=== PATIENT | female | born 1930 | race Hispanic/Latino ===

== ENCOUNTER 2018-09-16 16:24 | Inpatient (IN) | payer MEDICARE, BC ==
--- NOTE | 2018-09-16 16:52 | ED PDOC ---
Arrival/HPI - General Chief Complaint: Shortness Of Breath Time Seen by Provider: 09/16/18 16:38 Historian: Patient, Family (uma) - Critical Care Critical Care Minutes: 30 minutes - History of Present Illness Time/Duration: Other (five days) Symptom Onset: Gradual Symptom Course: Worsening Severity Level: Moderate Activities at Onset: Rest Associated Symptoms (Text): 09/16/18 16:48 History of coronary artery disease CABG and multiple stent placements. 6 days prior to arrival patient had an ablation and pacemaker placed at [facility]. Since then she has had increasing shortness of breath and dyspnea on exertion and generalized weakness. No chest pain. No fever or chills. No injury or trauma. PMD is Dr. Avila. Past Medical History - Cardiac Hx Cardiac Disorders: Yes Hx Circulatory Problems: Yes Hx Pacemaker: Yes - Pulmonary Hx Respiratory Disorders: No - Neurological Hx Neurological Disorder: No - HEENT Hx HEENT Disorder: No - Renal Hx Renal Disorder: No - Endocrine/Metabolic Hx Endocrine Disorders: No - Hematological/Oncological Hx Blood Disorders: No - Integumentary Hx Dermatological Disorder: No - Musculoskeletal/Rheumatological Hx Musculoskeletal Disorders: Yes Hx Arthritis: Yes Hx Falls: Yes Hx Unsteady Gait: Yes - Gastrointestinal Hx Gastrointestinal Disorders: No - Genitourinary/Gynecological Hx Genitourinary Disorders: No - Psychiatric Hx Psychophysiologic Disorder: Yes Hx Depression: Yes Hx Substance Use: No - Surgical History Hx Coronary Stent: Yes Other/Comment: Pacemaker - Anesthesia Hx Anesthesia Reactions: No Hx Malignant Hyperthermia: No Family/Social History - Physician Review Nursing Documentation Reviewed: Yes Family/Social History: Unknown Family HX Smoking Status: Never Smoked Hx Alcohol Use: Yes (COCKTAIL ON WEEKEND) Hx Substance Use: No Allergies/Home Meds Allergies/Adverse Reactions: Allergies iodine Allergy (Verified 09/16/18 16:43) ANAPHYLAXIS Sulfa (Sulfonamide Antibiotics) Allergy (Verified 09/16/18 16:43) ANAPHYLAXIS Home Medications: Home Meds Medication Instructions Recorded Confirmed Metoprolol Succinate XL [Toprol XL] 50 mg PO BID 12/01/11 09/16/18 Warfarin [Coumadin] 2 mg PO DAILY 12/01/11 09/16/18 Alprazolam [Xanax] 0.25 mg PO TID PRN 12/02/11 09/16/18 Rosuvastatin Calcium [Crestor] 40 mg PO DAILY 12/02/11 09/16/18 Aspirin [Ecotrin] 81 mg PO DAILY 09/16/18 09/16/18 Ferrous Sulfate [Feosol] 325 mg PO BID 09/16/18 09/16/18 Losartan [Cozaar] 50 mg PO DAILY 09/16/18 09/16/18 Nitroglycerin [Nitrostat] 0.4 mg SL Q5MIN PRN 09/16/18 09/16/18 Spironolactone [Aldactone] 25 mg PO DAILY 09/16/18 09/16/18 Warfarin [Coumadin] 3 mg PO DAILY 09/16/18 09/16/18 traZODone [Desyrel] 25 mg PO HS PRN 09/16/18 09/16/18 Review of Systems - Physician Review All systems were reviewed & negative as marked: Yes - Review of Systems Constitutional: Fatigue. absent: Fevers Respiratory: SOB. absent: Cough, Sputum, Wheezing Cardiovascular: absent: Chest Pain, Palpitations, Syncope Gastrointestinal: absent: Abdominal Pain, Nausea, Vomiting Neurological: absent: Headache, Dizziness, Focal Weakness Physical Exam Temperature: Afebrile Blood Pressure: Hypotensive Pulse: Regular Respiratory Rate: Normal Appearance: Positive for: Well-Appearing, Non-Toxic, Comfortable, Other (Chronically ill-appearing and pale) Pain Distress: None Mental Status: Positive for: Alert and Oriented X 3 - Systems Exam Head: Present: Atraumatic, Normocephalic Pupils: Present: PERRL Extroacular Muscles: Present: EOMI Conjunctiva: Present: Normal Mouth: Present: Moist Mucous Membranes Pharnyx: No: ERYTHEMA, EXUDATE, TONSILS ENLARGED Neck: Present: Normal Range of Motion Respiratory/Chest: Present: Clear to Auscultation, Good Air Exchange, Decreased Breath Sounds. No: Respiratory Distress, Accessory Muscle Use Cardiovascular: Present: Regular Rate and Rhythm, Normal S1, S2. No: Murmurs Abdomen: No: Tenderness, Distention, Peritoneal Signs, Rebound, Guarding Upper Extremity: Present: Normal Inspection. No: Cyanosis, Edema Lower Extremity: Present: Edema, Other (Left superficial anterior stiles ulcer with no signs of infection. Right medial posterior very small noninfected ulcer. Chronic venous stasis changes and trace edema.) Neurological: Present: GCS=15, CN II-XII Intact, Speech Normal, Motor Func G rossly Intact Skin: Present: Warm, Dry, Pale. No: Rashes Psychiatric: Present: Alert, Oriented x 3, Normal Insight, Normal Concentration Medical Decision Making ED Course and Treatment: 09/16/18 16:52 EKG is pacing rate 100 09/16/18 18:53 Discussed in detail with . He is aware of elevated BUN and creatinine elevated troponin elevated potassium and elevated BNP. Patient does have a living will and is a DNR. She is awake alert and not interested in any machines at all. She will be placed on a telemetry bed. He will place orders. - RAD Interpretation Radiology Orders: 09/16/18 16:47 CHEST PORTABLE [RAD] Stat X-ray chest one view shows cardiomegaly hardware pacemaker and right perihilar increased markings with no infiltrate or effusion. Union Steward: ED Physician Disposition/Present on Arrival - Present on Arrival Any Indicators Present on Arrival: No History of DVT/PE: No History of Uncontrolled Diabetes: No Urinary Catheter: No History of Decub. Ulcer: No History Surgical Site Infection Following: None - Disposition Have Diagnosis and Disposition been Completed?: Yes Diagnosis: Elevated troponin, Serum potassium elevated, Renal failure, Elevated brain natriuretic peptide (BNP) level, Anemia, Coagulopathy, Congestive heart failure, Dyspnea, Weakness, Lung mass Disposition: HOSPITALIZED Disposition Time: 18:57 Patient Plan: Admission, Telemetry Patient Problems: Current Active Problems Problem Status Onset Anemia Acute Coagulopathy Acute Congestive heart failure Acute Dyspnea Acute Elevated brain natriuretic peptide (BNP) level Acute Elevated troponin Acute Renal failure Acute Serum potassium elevated Acute Weakness Acute Condition: CRITICAL Discharge Instructions (ExitCare): Heart Failure (ED), Weakness (ED) Forms: [employer] ([place])
--- NOTE | 2018-09-16 17:38 | RAD ---
HISTORY: sob COMPARISON: None available TECHNIQUE: Chest, one view. FINDINGS: LUNGS: Right hilar prominence/mass. Please note that chest x-ray has limited sensitivity for the detection of pulmonary masses. PLEURA: No significant pleural effusion identified. No definite pneumothorax . CARDIOVASCULAR: Cardiomegaly. Atherosclerotic calcifications of the aorta. Median sternotomy wires. Left-sided pacemaker. OSSEOUS STRUCTURES: Osseous demineralization. Degenerative changes. High-riding humeral heads (left greater than right) may be seen in setting of chronic rotator cuff injury. Acromioclavicular arthropathy. VISUALIZED UPPER ABDOMEN: Unremarkable. OTHER FINDINGS: None. IMPRESSION: Right hilar prominence/mass. Recommend further evaluation with contrast enhanced CT of the chest. Cardiomegaly. Additional findings as above.
[2018-09-16 18:11] LABS: ALB/GLOB RATIO 1.1 (1.1-1.8); CALCIUM 9.8 mg/dL (8.4-10.5)
[2018-09-16 18:16] LABS: TROPONIN I 0.09 ng/mL
[2018-09-16] MEDS ORDERED: Insulin Regular 1 UNITS/0.01 ML ML IVP STA (18:25)
[2018-09-16] MEDS ORDERED: Dextrose 50% SYRINGE Inj (50 ml) IVP STA (18:26)
[2018-09-16 18:30] LABS: BASO # 0.01 K/mm3 (0.0-2.0); BASO % 0.1 % (0.0-3.0); EOS # 0.1 (0.0-0.7); EOS % 0.7 % (1.5-5.0); HEMOGLOBIN 9.9 g/dL (12.0-16.0); LYMPH # 0.9 (1.2-3.4); LYMPH % 12.8 % (22.0-35.0); MEAN CELL VOLUME 76.4 fl (80.0-105.0); MEAN CORPUSCULAR HEMOGLOBIN 21.7 pg (25.0-35.0); MEAN CORPUSCULAR HGB CONC 28.4 g/dl (31.0-37.0); MONO # 0.9 (0.1-0.6); MONO % 12.1 % (1.0-6.0); PLATELET COUNT 270 10^3/uL (120.0-450.0); RBC 4.57 10^6/uL (3.5-6.1); RED CELL DISTRIBUTION WIDTH 22.5 % (11.5-14.5); WHITE BLOOD COUNT 7.1 10^3/uL (4.5-11.0)
[2018-09-16 18:55] LABS: INR 3.93; PROTHROMBIN TIME 43.6 SECONDS (9.4-12.5)
[2018-09-16] MEDS: Dextrose 5%/0.9% NS 1,000 ML IV SCH (19:00)
[2018-09-16 20:43] VITALS: BMI 26.2
[2018-09-17 07:00] LABS: HEMOGLOBIN 8.7 g/dL (12.0-16.0); MEAN CORPUSCULAR HEMOGLOBIN 21.8 pg (25.0-35.0); MEAN PLATELET VOLUME 9.7 fl (7.0-11.0); RED CELL DISTRIBUTION WIDTH 21.8 % (11.5-14.5); WHITE BLOOD COUNT 6.8 10^3/uL (4.5-11.0)
[2018-09-17 08:01] LABS: ALBUMIN 3.2 g/dL (3.0-4.8); CALCIUM 8.9 mg/dL (8.4-10.5)
[2018-09-17] MEDS: Metoprolol Succinate 50 mg XL Tab PO SCH (09:19)
--- NOTE | 2018-09-17 09:39 | CARD ---
APPROVED REPORT Date of service: 09/16/2018 EKG Measurement Heart [id number] <Conclusion> Electronic ventricular pacemaker
--- NOTE | 2018-09-17 13:35 | US ---
Date of service: 09/17/2018 PROCEDURE: Ultrasound of the Kidneys HISTORY: ARF COMPARISON: None available. TECHNIQUE: Sonogram of the kidneys. FINDINGS: RIGHT KIDNEY: Measures: 9.6 x 3.93 x 4.38 cm. Normal in size, contour and echogenicity. No stone, solid mass lesion or hydronephrosis visualized. Simple cyst measuring 1.73 x 0.87 x 1.69 cm LEFT KIDNEY: Measures: 9.88 x 4.48 x 4.01 cm. Normal in size, contour and echogenicity. No stone, solid mass lesion or hydronephrosis visualized. 1.58 cm cyst upper pole OTHER FINDINGS: None. IMPRESSION: Unremarkable renal sonogram.
--- NOTE | 2018-09-17 13:51 | CP.PCM.HP ---
<Marc Haley - Last Filed: 09/17/18 14:05> History of Present Illness - History of Present Illness History of Present Illness: H&P for Dr Cline: 87-year-old female with past medical history of coronary artery disease with CABG and stents, A. fib on Coumadin, hypertension, osteoarthritis, anxiety, recent pacemaker and ablation placement for her atrial fibrillation 6 days ago, now presents with increasing shortness of breath with exertion and generalized weakness. As per [place] patient's niece, the patient has been increasingly short of breath when walking just 20 feet. Patient has also been more confused mixing up her words and her numbers at times. She also had an episode of slurring speech however it resolved quickly. As per the patient's niece the patient just has not been herself lately. The patient denies any other complaints. 12 point ROS performed and negative other than as stated above PMH: As above PSH: CABG 30 years ago, heart valve replacementlikely prosthetic (reported Pig valve), Pacemaker and ablation 1 week ago Medications: Refer to MAR Allergies: Iodine and sulfa SH: Denies any smoking, drinking, or drugs FH: Sister with kidney disease long time ago Present on Admission - Present on Admission Any Indicators Present on Admission: No Review of Systems - Review of Systems All systems: reviewed and no additional remarkable complaints except Past Patient History - Past Social History Smoking Status: Never Smoked - CARDIAC Hx Cardiac Disorders: Yes Hx Circulatory Problems: Yes Hx Pacemaker: Yes - PULMONARY Hx Respiratory Disorders: No - NEUROLOGICAL Hx Neurological Disorder: No - HEENT Hx HEENT Problems: No - RENAL Hx Chronic Kidney Disease: No - ENDOCRINE/METABOLIC Hx Endocrine Disorders: No - HEMATOLOGICAL/ONCOLOGICAL Hx Blood Disorders: No - INTEGUMENTARY Hx Dermatological Problems: No - MUSCULOSKELETAL/RHEUMATOLOGICAL Hx Falls: No - GASTROINTESTINAL Hx Gastrointestinal Disorders: No - GENITOURINARY/GYNECOLOGICAL Hx Genitourinary Disorders: No - PSYCHIATRIC Hx Psychophysiologic Disorder: Yes Hx Depression: Yes - SURGICAL HISTORY Hx Coronary Stent: Yes Other/Comment: Pacemaker - ANESTHESIA Hx Anesthesia Reactions: No Hx Malignant Hyperthermia: No Meds Allergies/Adverse Reactions: Allergies Allergy/AdvReac Type Severity Reaction Status Date / Time iodine Allergy ANAPHYLAXIS Verified 09/16/18 16:43 Sulfa (Sulfonamide Allergy ANAPHYLAXIS Verified 09/16/18 16:43 Antibiotics) Physical Exam - Constitutional Appears: No Acute Distress - Head Exam Head Exam: ATRAUMATIC, NORMOCEPHALIC - Eye Exam Eye Exam: EOMI, PERRL - ENT Exam ENT Exam: Mucous Membranes Moist - Respiratory Exam Respiratory Exam: Clear to Auscultation Bilateral. absent: Rales, Rhonchi, Wheezes - Cardiovascular Exam Cardiovascular Exam: REGULAR RHYTHM, +S1, +S2 - GI/Abdominal Exam GI & Abdominal Exam: Normal Bowel Sounds, Soft. absent: Tenderness - Extremities Exam Extremities exam: Negative for: calf tenderness, pedal edema - Neurological Exam Neurological exam: Alert, CN II-XII Intact, Oriented x3 - Psychiatric Exam Psychiatric exam: Normal Mood - Skin Skin Exam: Dry, Intact, Warm Results - Vital Signs Recent Vital Signs: Last Vital Signs Temp 97.7 F 09/17/18 08:00 Pulse 81 09/17/18 10:00 Resp 18 09/17/18 08:00 BP 91/70 L 09/17/18 09:19 Pulse Ox 99 09/17/18 08:00 - Labs Result Diagrams: 09/17/18 06:15 09/17/18 06:15 Labs: Laboratory Results - last 24 hr 09/16/18 09/16/18 09/16/18 17:26 17:26 17:47 WBC 7.1 RBC 4.57 Hgb 9.9 L Hct 34.9 L MCV 76.4 L MCH 21.7 L MCHC 28.4 L RDW 22.5 H Plt Count 270 MPV Neut % (Auto) 74.3 H Lymph % (Auto) 12.8 L [place] % (Auto) 12.1 H Eos % (Auto) 0.7 L Baso % (Auto) 0.1 Lymph # (Auto) 0.9 L [place] # (Auto) 0.9 H Eos # (Auto) 0.1 Baso # (Auto) 0.01 Absolute Neuts (auto) 5.30 PT 43.6 H INR 3.93 H* APTT 42.0 H D-Dimer, Quantitative 3371 H Sodium 135 Potassium 6.4 H* D Chloride 99 Carbon Dioxide 23 Anion Gap 20 BUN 79 H Creatinine 2.4 H Est GFR ( Amer) 23 Est GFR (Non-Af Amer) 19 POC Glucose (mg/dL) Random Glucose 100 Calcium 9.8 Phosphorus Magnesium 2.8 H Total Bilirubin 1.4 H AST 66 H D ALT 38 Alkaline Phosphatase 106 Lactate Dehydrogenase 788 H Total Creatine Kinase 46 Troponin I 0.09 NT-Pro-B Natriuret Pep 41166 H Total Protein 7.6 Albumin 4.0 Globulin 3.6 Albumin/Globulin Ratio 1.1 09/16/18 09/17/18 09/17/18 19:49 01:48 06:15 WBC 6.8 RBC 4.00 Hgb 8.7 L Hct 30.0 L MCV 75.0 L MCH 21.8 L MCHC 29.0 L RDW 21.8 H Plt Count 145 MPV 9.7 Neut % (Auto) Lymph % (Auto) [place] % (Auto) Eos % (Auto) Baso % (Auto) Lymph # (Auto) [place] # (Auto) Eos # (Auto) Baso # (Auto) Absolute Neuts (auto) PT INR APTT D-Dimer, Quantitative Sodium Potassium Chloride Carbon Dioxide Anion Gap BUN Creatinine Est GFR ( Amer) Est GFR (Non-Af Amer) POC Glucose (mg/dL) 124 H 172 H Random Glucose Calcium Phosphorus Magnesium Total Bilirubin AST ALT Alkaline Phosphatase Lactate Dehydrogenase Total Creatine Kinase Troponin I NT-Pro-B Natriuret Pep Total Protein Albumin Globulin Albumin/Globulin Ratio 09/17/18 06:15 WBC RBC Hgb Hct MCV MCH MCHC RDW Plt Count MPV Neut % (Auto) Lymph % (Auto) [place] % (Auto) Eos % (Auto) Baso % (Auto) Lymph # (Auto) [place] # (Auto) Eos # (Auto) Baso # (Auto) Absolute Neuts (auto) PT INR APTT D-Dimer, Quantitative Sodium 134 Potassium 5.1 H Chloride 101 Carbon Dioxide 25 Anion Gap 13 BUN 79 H Creatinine 2.3 H Est GFR ( Amer) 24 Est GFR (Non-Af Amer) 20 POC Glucose (mg/dL) Random Glucose 100 Calcium 8.9 Phosphorus 5.0 H Magnesium 2.7 H Total Bilirubin 1.0 AST 62 H ALT 36 Alkaline Phosphatase 87 Lactate Dehydrogenase Total Creatine Kinase Troponin I NT-Pro-B Natriuret Pep Total Protein 6.4 Albumin 3.2 Globulin 3.3 Albumin/Globulin Ratio 1.0 L Assessment & Plan - Assessment and Plan (Free Text) Assessment: 1. Shortness of breath 2. Hyperkalemia, k 5.9 3. Acute kidney injury 4. Atrial fibrillation on Coumadin and recent ablation with pacemaker placement 5. Coronary artery disease with CABG and stents 6. 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 Osteoarthritis 8. Anxiety 9. Hypertension 10. Supra therapeutic INR 3.93 CT scan of the head was ordered in order to rule out any CVA, will follow-up results. Chest x-ray showed right hilar prominent mass recommend CT of the chest, cardiomegaly. EKG showed heart rate of 100 electronic ventricular pacemaker. For her shortness of breath and recent pacemaker placement cardiology consulted, follow-up echo ordered, awaiting further recommendations. Started on Duonebs. For her hyperkalemia has been treated with insulin 10 units with D50, Kayexalate 15, and D5 NS @75. For her LOUISA workup has been sent out we will follow-up results, follow-up renal ultrasound, will hold patient's home losartan and Aldactone, Cont with fluids. For her coronary artery disease continue aspirin and beta-blockers. For her hypertension we will hold patient's Aldactone and losartan in the setting of an LOUISA, resume BB. For her anxiety continue with Xanax as needed. Patient has supratherapeutic INR, hold Coumadin, follow up daily INRs. Continue with heart healthy diet. Physical therapy evaluation. Continue to monitor for any changes. Case and plan was reviewed and discussed with Dr. Cline. <Jin Cline - Last Filed: 09/17/18 17:01> Results - Vital Signs Recent Vital Signs: Last Vital Signs Temp 97.6 F 09/17/18 12:00 Pulse 81 09/17/18 12:00 Resp 20 09/17/18 12:00 BP 101/70 09/17/18 12:00 Pulse Ox 100 09/17/18 12:00 - Labs Result Diagrams: 09/17/18 06:15 09/17/18 06:15 Labs: Laboratory Results - last 24 hr 09/16/18 09/16/18 09/16/18 17:26 17:26 17:47 WBC 7.1 RBC 4.57 Hgb 9.9 L Hct 34.9 L MCV 76.4 L MCH 21.7 L MCHC 28.4 L RDW 22.5 H Plt Count 270 MPV Neut % (Auto) 74.3 H Lymph % (Auto) 12.8 L [place] % (Auto) 12.1 H Eos % (Auto) 0.7 L Baso % (Auto) 0.1 Lymph # (Auto) 0.9 L Churchill # (Auto) 0.9 H Eos # (Auto) 0.1 Baso # (Auto) 0.01 Absolute Neuts (auto) 5.30 PT 43.6 H INR 3.93 H* APTT 42.0 H D-Dimer, Quantitative 3371 H Sodium 135 Potassium 6.4 H* D Chloride 99 Carbon Dioxide 23 Anion Gap 20 BUN 79 H Creatinine 2.4 H Est GFR ( Amer) 23 Est GFR (Non-Af Amer) 19 POC Glucose (mg/dL) Random Glucose 100 Calcium 9.8 Phosphorus Magnesium 2.8 H Total Bilirubin 1.4 H AST 66 H D ALT 38 Alkaline Phosphatase 106 Lactate Dehydrogenase 788 H Total Creatine Kinase 46 Troponin I 0.09 NT-Pro-B Natriuret Pep 84926 H Total Protein 7.6 Albumin 4.0 Globulin 3.6 Albumin/Globulin Ratio 1.1 Urine Color Urine Appearance Urine pH Ur Specific [place] Urine Protein Urine Glucose (UA) Urine Ketones Urine Blood Urine Nitrate Urine Bilirubin Urine Urobilinogen Ur Leukocyte Esterase Urine RBC Urine WBC Ur Epithelial Cells Urine Bacteria Ur Random Creatinine U Random Total Protein Ur Random Sodium 09/16/18 09/17/18 09/17/18 19:49 01:48 06:15 WBC 6.8 RBC 4.00 Hgb 8.7 L Hct 30.0 L MCV 75.0 L MCH 21.8 L MCHC 29.0 L RDW 21.8 H Plt Count 145 MPV 9.7 Neut % (Auto) Lymph % (Auto) [place] % (Auto) Eos % (Auto) Baso % (Auto) Lymph # (Auto) [place] # (Auto) Eos # (Auto) Baso # (Auto) Absolute Neuts (auto) PT INR APTT D-Dimer, Quantitative Sodium Potassium Chloride Carbon Dioxide Anion Gap BUN Creatinine Est GFR ( Amer) Est GFR (Non-Af Amer) POC Glucose (mg/dL) 124 H 172 H Random Glucose Calcium Phosphorus Magnesium Total Bilirubin AST ALT Alkaline Phosphatase Lactate Dehydrogenase Total Creatine Kinase Troponin I NT-Pro-B Natriuret Pep Total Protein Albumin Globulin Albumin/Globulin Ratio Urine Color Urine Appearance Urine pH Ur Specific [place] Urine Protein Urine Glucose (UA) Urine Ketones Urine Blood Urine Nitrate Urine Bilirubin Urine Urobilinogen Ur Leukocyte Esterase Urine RBC Urine WBC Ur Epithelial Cells Urine Bacteria Ur Random Creatinine U Random Total Protein Ur Random Sodium 09/17/18 09/17/18 09/17/18 06:15 14:30 14:30 WBC RBC Hgb Hct MCV MCH MCHC RDW Plt Count MPV Neut % (Auto) Lymph % (Auto) [place] % (Auto) Eos % (Auto) Baso % (Auto) Lymph # (Auto) [place] # (Auto) Eos # (Auto) Baso # (Auto) Absolute Neuts (auto) PT INR APTT D-Dimer, Quantitative Sodium 134 Potassium 5.1 H Chloride 101 Carbon Dioxide 25 Anion Gap 13 BUN 79 H Creatinine 2.3 H Est GFR ( Amer) 24 Est GFR (Non-Af Amer) 20 POC Glucose (mg/dL) Random Glucose 100 Calcium 8.9 Phosphorus 5.0 H Magnesium 2.7 H Total Bilirubin 1.0 AST 62 H ALT 36 Alkaline Phosphatase 87 Lactate Dehydrogenase Total Creatine Kinase Troponin I NT-Pro-B Natriuret Pep Total Protein 6.4 Albumin 3.2 Globulin 3.3 Albumin/Globulin Ratio 1.0 L Urine Color Yellow Urine Appearance Clear Urine pH 6.0 Ur Specific [place] 1.020 Urine Protein Negative Urine Glucose (UA) Negative Urine Ketones Negative Urine Blood Negative Urine Nitrate Negative Urine Bilirubin Negative Urine Urobilinogen 0.2 Ur Leukocyte Esterase Trace H Urine RBC 0 - 2 Urine WBC 5 - 10 H Ur Epithelial Cells 6 - 8 H Urine Bacteria Small Ur Random Creatinine 62 U Random Total Protein 13 Ur Random Sodium 33 Assessment & Plan - Assessment and Plan (Free Text) Assessment: Pt seen and examined by me. I have reviewed the note of the medical office secretary and I agree with it. I have discussed the assessment and plan with the resident. I have reviewed the medications and the last labs.
[2018-09-17] MEDS ORDERED: Albuterol-Ipratrop 3 mg / 0.5 (3 ml) UD IH PRN (14:09)
[2018-09-17] MEDS: Dextrose 5%/0.9% NS 1,000 ML IV SCH (14:31)
[2018-09-17 14:39] LABS: URINE BILIRUBIN NEGATIVE (NEGATIVE); URINE BLOOD NEGATIVE (NEGATIVE); URINE GLUCOSE (UA) NEGATIVE (NEGATIVE); URINE LEUKOCYTE ESTERASE TRACE Leu/uL (NEGATIVE); URINE PROTEIN NEGATIVE mg/dL (<30 mg/dL); URINE UROBILINOGEN 0.2 E.U./dL (<1 E.U./dL)
[2018-09-17 14:41] LABS: URINE APPEARANCE CLEAR (CLEAR); URINE COLOR YELLOW (YELLOW)
[2018-09-17 14:58] LABS: CREATININE,RANDOM URINE 62 mg/dL; TOTAL PROTEIN,RANDOM URINE 13 mg/L
--- NOTE | 2018-09-17 15:27 | CT ---
Date of service: 09/17/2018 PROCEDURE: CT HEAD WITHOUT CONTRAST. HISTORY: r/o cva COMPARISON: 08/31/2016 TECHNIQUE: Axial computed tomography images were obtained through the head/brain without intravenous contrast. Radiation dose: Total exam DLP = 885.69 mGy-cm. This CT exam was performed using one or more of the following dose reduction techniques: Automated exposure control, adjustment of the mA and/or kV according to patient size, and/or use of iterative reconstruction technique. FINDINGS: HEMORRHAGE: No intracranial hemorrhage. BRAIN: No mass effect or edema. Mild diffuse age-appropriate atrophy. 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 Old left thalamic lacunar infarct. No evidence of acute infarct. Moderate patchy periventricular and deep/subcortical white matter lucency consistent with microvascular ischemic change. VENTRICLES: Unremarkable. No hydrocephalus. CALVARIUM: Unremarkable. PARANASAL SINUSES: Unremarkable as visualized. No significant inflammatory changes. MASTOID AIR CELLS: Unremarkable as visualized. No inflammatory changes. OTHER FINDINGS: None. IMPRESSION: No which cranial mass, hemorrhage or evidence of acute infarct. Age related atrophy and chronic white matter ischemic change.
[2018-09-17 15:28] LABS: URINE BACTERIA SMALL /hpf; URINE RBC 0 - 2 /hpf (0-2)
[2018-09-17] MEDS: Albuterol-Ipratrop 3 mg / 0.5 (3 ml) UD IH SCH (20:33)
--- NOTE | 2018-09-17 20:43 | PN ---
DATE: 09/17/2018 SUBJECTIVE: The patient was seen and examined. I do agree with the note of the senior medical technologist. I did review the assessment and plan as well as going over the plan of care. The patient is being admitted to the hospital. She had initially come in because of shortness of breath. The patient was getting DuoNeb treatments and had improvement. She has acute kidney injury. Her previous creatinine in the computer was normal. She also has hyperkalemia. She was given Kayexalate and was placed on D5 normal saline to help with the hyperkalemia and the acute kidney injury. At this point, I am not sure of the cause of the acute kidney injury. The differential diagnosis is lung , but does include hypovolemia, possible medication induced. The patient had a recent pacemaker placement and may have occurred postop as a complication. The patient currently feels well. She has been on Aldactone and losartan, so I will hold these medications as this may be the cause of the hyperkalemia. She has a prosthetic heart valve. She has an elevated INR. The Coumadin will be on hold. The patient is on Coumadin for atrial fibrillation. The patient had a renal ultrasound that was ordered. It shows no significant abnormalities. The left kidney is 9.8 cm and the right 9.6 cm. There is a simple cyst that is 1.7 x 0.8 x 1.7 cm. The patient had a CT of the head that shows no acute abnormalities. There were age-related changes. EKG showed a ventricular paced rhythm. A repeat creatinine that was done shows that the potassium has improved, but the creatinine has remained stable. PLAN: I have asked Dr. Joy to evaluate the patient as well. She is going to continue with her iron. She is receiving Lipitor for dyslipidemia. She is on Xanax as needed for anxiety. She is going to continue her metoprolol. Jin Cline MD
--- NOTE | 2018-09-17 22:16 | CON ---
DATE: 09/17/2018 REQUESTING PHYSICIAN: Dr. Cline REASON FOR CONSULTATION: Dyspnea. HISTORY: This is an 87-year-old woman with a complex past medical history, who underwent recent ablation for atrial fibrillation and placement of a biventricular pacemaker, who developed worsening exertional dyspnea following the procedure. This was apparently performed just several days ago at [facility]. PAST HISTORY: Notable for prior coronary bypass surgery many years ago. She also had a PCI with plain balloon angioplasty in the as well as a stent placement several years ago. She underwent aortic valve replacement as well several years ago. All these procedures were reportedly performed at [facility]. She states that she has had significant exertional dyspnea since her procedure was performed. Her past medical history is notable for the problems mentioned above. CURRENT MEDICATIONS: Include trazodone, DuoNeb inhaler, Ecotrin, ferrous sulfate, Lipitor 80 mg daily, Toprol XL 50 mg daily, and Xanax p.r.n. ALLERGIES: SHE HAS HAD A REACTION TO IODINE IN THE PAST WELL SULFAS. SOCIAL HISTORY: She does not smoke or drink. FAMILY HISTORY: Both parents are from age-related illness. REVIEW OF SYSTEMS: Ten-point review of systems otherwise unremarkable. PHYSICAL EXAMINATION: GENERAL: She is an elderly woman who appears comfortable at rest. VITAL SIGNS: Blood pressure is 90/70 with pulse of 18, respirations are 16. She is afebrile. HEENT: Normocephalic, atraumatic. NECK: Supple. No JVD noted. CHEST: Few scattered rhonchi heard. HEART: PMI displaced laterally with soft tones noted. ABDOMEN: Soft, nontender, normoactive bowel sounds. EXTREMITIES: No edema. SKIN: Warm and dry. PSYCHIATRIC: Normal mood and affect. NEUROLOGIC: Alert and oriented x3. No gross motor or sensory deficits noted. DIAGNOSTIC DATA: Potassium 5.1, BUN and creatinine of 79 and 2.3. White count is 6.8, hemoglobin and hematocrit of 8.7 and 30 with an MCV of 75, platelet count 145,000. Chest x-ray reveals an enlarged cardiac silhouette with clear lung garcia. A dual-chamber biventricular pacing system is noted in place. Electrocardiogram reveals ventricular paced rhythm. IMPRESSION: 1. Post-procedural dyspnea, etiology uncertain. 2. Anemia, uncertain if this is chronic. She does have evidence of microcytic hyperchromic indices. It is unclear if she had any significant blood loss with her device implant. This would be somewhat unusual. 3. Renal insufficiency, unclear if this is new or old. 4. Known coronary artery disease, status post prior bypass surgery and multivessel percutaneous coronary intervention. 5. History of aortic valve disease, status post aortic valve replacement, no evidence of dysfunction on physical examination. 6. Rest of problems as noted. RECOMMENDATIONS: 1. Attempts were made to obtain further information from [facility] regarding her prior admission. Old records will be reviewed if possible. Renal evaluation has been initiated. 2. Anemia evaluation is advised as well. She does not appear volume overloaded at the present time and I would not add diuretic therapy to her regimen. An echocardiogram will be obtained to assess her valve function, LV function, and exclude any component of pericardial effusion given her recent device implant. I will be happy to follow along and make further recommendations based upon her results of the above workup. Thank you for this consultation. Yaw Joy MD
[2018-09-18] MEDS: Albuterol-Ipratrop 3 mg / 0.5 (3 ml) UD IH SCH ×3 (01:57→13:54)
[2018-09-18 07:16] LABS: INR 3.22; PROTHROMBIN TIME 36.4 SECONDS (9.4-12.5)
[2018-09-18 07:25] LABS: BASO # 0.01 K/mm3 (0.0-2.0); BASO % 0.1 % (0.0-3.0); EOS # 0.1 (0.0-0.7); EOS % 0.7 % (1.5-5.0); HEMOGLOBIN 8.7 g/dL (12.0-16.0); LYMPH # 0.9 (1.2-3.4); LYMPH % 12.4 % (22.0-35.0); MEAN CELL VOLUME 75.5 fl (80.0-105.0); MEAN CORPUSCULAR HEMOGLOBIN 21.5 pg (25.0-35.0); MEAN CORPUSCULAR HGB CONC 28.5 g/dl (31.0-37.0); MEAN PLATELET VOLUME 9.7 fl (7.0-11.0); MONO # 1.2 (0.1-0.6); RBC 4.04 10^6/uL (3.5-6.1); RED CELL DISTRIBUTION WIDTH 21.6 % (11.5-14.5); WHITE BLOOD COUNT 7.3 10^3/uL (4.5-11.0)
[2018-09-18 07:38] LABS: ALB/GLOB RATIO 0.9 (1.1-1.8); ALBUMIN 3.1 g/dL (3.0-4.8); CALCIUM 8.7 mg/dL (8.4-10.5)
[2018-09-18 08:15] LABS: URINE BILIRUBIN NEGATIVE (NEGATIVE); URINE BLOOD NEGATIVE (NEGATIVE); URINE GLUCOSE (UA) NEGATIVE (NEGATIVE); URINE LEUKOCYTE ESTERASE MODERATE Leu/uL (NEGATIVE); URINE PROTEIN NEGATIVE mg/dL (<30 mg/dL); URINE UROBILINOGEN 0.2 E.U./dL (<1 E.U./dL)
[2018-09-18 08:17] LABS: URINE APPEARANCE CLEAR (CLEAR); URINE COLOR YELLOW (YELLOW)
[2018-09-18 08:27] LABS: IRON 16 ug/dL (45-180)
[2018-09-18 08:37] LABS: % IRON SATURATION 4 % (20-55); TOTAL IRON BINDING CAPACITY 398 ug/dL (265-497)
[2018-09-18 08:44] LABS: URINE BACTERIA MANY /hpf; URINE WBC 20 - 25 /hpf (0-6)
[2018-09-18 08:45] LABS: URINE AMORPHOUS SEDIMENT FEW /hpf
[2018-09-18] MEDS: Metoprolol Succinate 50 mg XL Tab PO SCH (09:33)
--- NOTE | 2018-09-18 11:08 | CP.PCM.PN ---
<Marc Haley - Last Filed: 09/18/18 11:04> Subjective - Date & Time of Evaluation Date of Evaluation: 09/18/18 Time of Evaluation: 07:50 - Subjective Subjective: Medicine progress note: Patient seen and examined at bedside. No acute events overnight. Patient states that her shortness of breath has improved. Denies any chest pain. No other complaints at this time. 12 point ROS performed and negative other than stated above Objective - Vital Signs/Intake and Output Vital Signs (last 24 hours): Temp Pulse Resp BP Pulse Ox 98 F 97 H 20 105/70 99 09/18/18 06:00 09/18/18 09:33 09/18/18 06:00 09/18/18 09:33 09/18/18 06:00 Intake and Output: 09/18/18 09/18/18 06:59 18:59 Intake Total 596 Output Total 480 Balance 116 - Medications Medications: Current Medications Albuterol/Ipratropium (Duoneb 3 Mg/0.5 Mg (3 Ml) Ud) 3 ml IH [id number] [facility] Last Admin: 09/18/18 09:06 Dose: 3 ml Albuterol/Ipratropium (Duoneb 3 Mg/0.5 Mg (3 Ml) Ud) 3 ml IH Q2H PRN PRN Reason: Shortness of Breath Alprazolam (Xanax) 0.25 mg PO TID PRN; Protocol PRN Reason: Anxiety Stop: 09/24/18 13:45 Aspirin (Ecotrin) 81 mg PO DAILY [facility] Last Admin: 09/18/18 09:28 Dose: 81 mg Atorvastatin Calcium (Lipitor) 80 mg PO DIN [facility] Last Admin: 09/17/18 18:03 Dose: 80 mg Benzocaine/Menthol (Cepacol Sore Throat) 1 pedro MT Q2H PRN PRN Reason: Sore Throat Ferrous Sulfate (Feosol) 324 mg PO BID [facility] Last Admin: 09/18/18 09:28 Dose: 324 mg Iron Sucrose 200 mg/ Sodium (Chloride) 110 mls @ 110 mls/hr IVPB DAILY [facility] Stop: 09/21/18 11:01 Metoprolol Succinate (Toprol Xl) 50 mg PO DAILY [facility] Last Admin: 09/18/18 09:33 Dose: 50 mg Nitroglycerin (Nitrostat Sl Tab) 0.4 mg SL Q5MIN PRN PRN Reason: chest pain Pantoprazole Sodium (Protonix Ec Tab) 40 mg PO 0600 [facility] Trazodone HCl (Desyrel) 25 mg PO HS PRN PRN Reason: Insomnia Last Admin: 09/17/18 22:21 Dose: 25 mg Warfarin Sodium (Coumadin) 2 mg PO DAILY [facility]; Protocol Last Admin: 09/17/18 14:31 Dose: Not Given - Labs Labs: 09/18/18 06:30 09/18/18 06:30 PT 36.4 SECONDS (9.4-12.5) H 09/18/18 06:30 INR 3.22 09/18/18 06:30 APTT 42.0 Seconds (26.9-38.3) H 09/16/18 17:47 - Constitutional Appears: No Acute Distress - Head Exam Head Exam: ATRAUMATIC, NORMOCEPHALIC - Eye Exam Eye Exam: EOMI - ENT Exam ENT Exam: Mucous Membranes Moist - Respiratory Exam Respiratory Exam: Clear to Ausculation Bilateral. absent: Rales, Wheezes - Cardiovascular Exam Cardiovascular Exam: REGULAR RHYTHM, +S1, +S2 - GI/Abdominal Exam GI & Abdominal Exam: Soft. absent: Distended, Tenderness - Extremities Exam Extremities Exam: absent: Calf Tenderness, Pedal Edema - Neurological Exam Neurological Exam: Alert, Awake, Oriented x3 - Psychiatric Exam Psychiatric exam: Normal Mood - Skin Skin Exam: Dry, Warm Assessment and Plan - Assessment and Plan (Free Text) Assessment: 1. Shortness of breath 2. Hyperkalemia, resolved 3. Acute kidney injury 4. Atrial fibrillation on Coumadin and recent ablation with pacemaker placement 5. Coronary artery disease with CABG and stents 6. 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 Osteoarthritis 8. Anxiety 9. Hypertension 10. Supra therapeutic INR 3.93 CT scan of the head was negative for any intracranial abnormality. For her shortness of breath and recent pacemaker placement cardiology consulted, follow- up echo ordered, awaiting further recommendations, attempted to reach out to [facility]. Continue with Duonebs. Hyperkalemia has resolved, cont to monitor. For her LOUISA dec to Cr 1.8 today- likely prerenal - renal ultrasound which was unremarkable. Cont to hold patient's home losartan and Aldactone. For her coronary artery disease continue aspirin and beta-blockers. For her hypertension Continue with metoprolol. For her anxiety continue with Xanax as needed. Patient has supratherapeutic INR, cont to hold Coumadin, follow up daily INRs. Continue with heart healthy diet. Physical therapy evaluation. Continue to monitor for any changes. Case and plan was reviewed and discussed with Dr. Cline. <Jin Cline - Last Filed: 09/18/18 17:10> Objective - Vital Signs/Intake and Output Vital Signs (last 24 hours): Temp Pulse Resp BP Pulse Ox 97.5 F L 93 H 18 99/62 L 99 09/18/18 12:00 09/18/18 12:00 09/18/18 12:00 09/18/18 12:00 09/18/18 06:00 Intake and Output: 09/18/18 09/18/18 06:59 18:59 Intake Total 596 Output Total 480 Balance 116 - Medications Medications: Current Medications Albuterol/Ipratropium (Duoneb 3 Mg/0.5 Mg (3 Ml) Ud) 3 ml IH [id number] [facility] Last Admin: 09/18/18 13:54 Dose: 3 ml Albuterol/Ipratropium (Duoneb 3 Mg/0.5 Mg (3 Ml) Ud) 3 ml IH Q2H PRN PRN Reason: Shortness of Breath Alprazolam (Xanax) 0.25 mg PO TID PRN; Protocol PRN Reason: Anxiety Stop: 09/24/18 13:45 Aspirin (Ecotrin) 81 mg PO DAILY [facility] Last Admin: 09/18/18 09:28 Dose: 81 mg Atorvastatin Calcium (Lipitor) 80 mg PO DIN [facility] Last Admin: 09/17/18 18:03 Dose: 80 mg Benzocaine/Menthol (Cepacol Sore Throat) 1 pedro MT Q2H PRN PRN Reason: Sore Throat Last Admin: 09/18/18 14:14 Dose: 1 pedro Ferrous Sulfate (Feosol) 324 mg PO BID [facility] Last Admin: 09/18/18 09:28 Dose: 324 mg Iron Sucrose 200 mg/ Sodium (Chloride) 110 mls @ 110 mls/hr IVPB DAILY [facility] Stop: 09/21/18 11:01 Last Admin: 09/18/18 12:40 Dose: 110 mls/hr Metoprolol Succinate (Toprol Xl) 50 mg PO DAILY [facility] Last Admin: 09/18/18 09:33 Dose: 50 mg Nitroglycerin (Nitrostat Sl Tab) 0.4 mg SL Q5MIN PRN PRN Reason: chest pain Pantoprazole Sodium (Protonix Ec Tab) 40 mg PO 0600 [facility] Trazodone HCl (Desyrel) 25 mg PO HS PRN PRN Reason: Insomnia Last Admin: 09/17/18 22:21 Dose: 25 mg Warfarin Sodium (Coumadin) 2 mg PO DAILY [facility]; Protocol Last Admin: 09/17/18 14:31 Dose: Not Given - Labs Labs: 09/18/18 06:30 09/18/18 06:30 PT 36.4 SECONDS (9.4-12.5) H 09/18/18 06:30 INR 3.22 09/18/18 06:30 APTT 42.0 Seconds (26.9-38.3) H 09/16/18 17:47 Assessment and Plan - Assessment and Plan (Free Text) Assessment: Pt seen and examined by me. I have reviewed the note of the medical malpractice paralegal and I agree with it. I have discussed the assessment and plan with the resident. I have reviewed the medications and the last labs.
[2018-09-18] MEDS: Benzocaine/Menthol (Cepacol) Lozenge MT PRN ×2 (14:14→17:47)
--- NOTE | 2018-09-18 14:38 | PN ---
DATE: 09/18/2018 SUBJECTIVE: The patient is seen lying in bed on telemetry. She is comfortable at rest. She does continue to have some exertional dyspnea. Blood pressure has been borderline low. CURRENT MEDICATIONS: Include trazodone, DuoNeb inhaler, Ecotrin, ferrous sulfate, Lipitor 80 mg daily, Protonix and Xanax p.r.n. Topical has been placed on hold. OBJECTIVE: GENERAL: She is a very elderly woman who appears comfortable at rest. VITAL SIGNS: Her blood pressure is 90/60 with pulse of 96 with ventricular pacing, respirations are 16. She is afebrile. HEENT: No JVD. CHEST: Diminished breath sounds at the bases. No rales heard. HEART: PMI displaced laterally with a systolic murmur at lower left sternal border. ABDOMEN: Soft, nontender with normoactive bowel sounds. EXTREMITIES: No edema. DIAGNOSTIC DATA: Potassium 4.6, BUN and creatinine 66 and 1.8. White count 7.3, hemoglobin and hematocrit of 8.7 and 30.5 with an MCV of 75, platelet count 137,000. INR is 3.2. IMPRESSION: 1. Worsened dyspnea, likely multifactorial. This is in part likely due to anemia. Her echocardiogram is pending to exclude any component of a pericardial effusion following a recent pacemaker implant. 2. Renal insufficiency, appears acute, awaiting reports from [facility] as to whether contrast was used during her biventricular lead placement which may have resulted in some contrast nephropathy. 3. Hyperchromic microcytic anemia. 4. Known coronary disease, status post prior bypass surgery, multivessel percutaneous coronary intervention, appears stable. 5. History of aortic valve disease, status post aortic valve replacement. 6. History of atrial fibrillation, status post recent ablation therapy. RECOMMENDATIONS: Her echocardiogram is pending and will be reviewed. If needed, gentle hydration can be employed. Metoprolol will continue to be withheld at this time. Stool guaiacs should be checked. Serial CBCs and BMPs will be monitored as well. We will continue to follow and make further recommendations as appropriate. Yaw Joy MD
--- NOTE | 2018-09-18 22:04 | PN ---
DATE: 09/18/2018 The patient was seen and examined. I do agree with the note of the medical clinic manager. The patient initially came into the hospital with shortness of breath that has improved. She had hypokalemia slightly from acute kidney injury. The hypokalemia has improved as well with Kayexalate and IV fluids. The patient's creatinine is also improving. Currently, the creatinine is 1.8. The patient has been on Coumadin for her atrial fibrillation. The patient does have a history of coronary artery disease and CABG. She had a prosthetic heart valve replaced. She has osteoarthritis and she does not have any pain issues. She had an elevated INR, so her Coumadin has been on hold. She has been on losartan and Aldactone that have also been placed on hold until her creatinine and potassium have improved. She is currently comfortable. She does have difficulty with ambulation due to gait instability. She is open to going to the transitional care unit. She is on nebulizer treatments. The patient has iron deficiency anemia which is severe. She has been started on IV Venofer. The patient is going to be on Lipitor for dyslipidemia. She is on Xanax. She is on a heart healthy diet. The patient is also DNR. Jin Cline MD
[2018-09-19] MEDS: Albuterol-Ipratrop 3 mg / 0.5 (3 ml) UD IH SCH ×3 (01:42→13:10)
[2018-09-19] MEDS: Benzocaine/Menthol (Cepacol) Lozenge MT PRN (05:47)
[2018-09-19] MEDS ORDERED: Pantoprazole 40 mg EC Tab PO SCH (06:00)
[2018-09-19 07:09] LABS: INR 3.13; PROTHROMBIN TIME 35.4 SECONDS (9.4-12.5)
[2018-09-19 07:10] LABS: BASO # 0.01 K/mm3 (0.0-2.0); BASO % 0.1 % (0.0-3.0); EOS # 0.1 (0.0-0.7); EOS % 0.9 % (1.5-5.0); HEMOGLOBIN 8.8 g/dL (12.0-16.0); LYMPH # 0.4 (1.2-3.4); LYMPH % 5.6 % (22.0-35.0); MEAN CELL VOLUME 76.6 fl (80.0-105.0); MEAN CORPUSCULAR HEMOGLOBIN 21.9 pg (25.0-35.0); MEAN CORPUSCULAR HGB CONC 28.7 g/dl (31.0-37.0); MONO # 1.1 (0.1-0.6); MONO % 16.7 % (1.0-6.0); RBC 4.01 10^6/uL (3.5-6.1); RED CELL DISTRIBUTION WIDTH 21.9 % (11.5-14.5); WHITE BLOOD COUNT 6.8 10^3/uL (4.5-11.0)
[2018-09-19 07:34] LABS: ALBUMIN 3.3 g/dL (3.0-4.8); CALCIUM 8.8 mg/dL (8.4-10.5)
--- NOTE | 2018-09-19 09:39 | CARD ---
APPROVED REPORT Date of service: 09/18/2018 EXAM: Two-dimensional and M-mode echocardiogram with Doppler and color Doppler. INDICATION Dyspnea 2D DIMENSIONS Left Atrium (2D)5.6 (1.6-4.0cm)IVSd1.1 (0.7-1.1cm) LVDd5.1 (3.9-5.9cm)PWd1.3 (0.7-1.1cm) LVDs4.6 (2.5-4.0cm)FS (%) 10.3 % LVEF (%)22.2 (>50%) M-Mode DIMENSIONS Aortic Root3.00 (2.2-3.7cm) Aortic Valve AoV Peak Brtbbupv763.0cm/sAoV VTI36.7cmAO Peak GR.29mmHg AO Mean GR.13mmHg Mitral Valve MV E Tyurufls839.0cm/sMV E Peak Gr.21mmHgMV E Mean Gr.7mmHg MV IPA22olT/A ratio0.0MVA (PHT)3.24cm2 TDI E/Lateral E'0.0E/Medial E'0.0 Pulmonary Valve PV Peak Kllbrilt76.4cm/sPV Peak Grad.1mmHg Tricuspid Valve TR Peak [id number]/sRAP [id number] Peak Gr.59mmHg [id number] LEFT VENTRICLE The left ventricle is normal size. There is borderline concentric left ventricular hypertrophy. The ejection fraction is severely impaired. There is akinesis of the anterosepta and apical segments. There is sever hypokinesis of the anterolateral and inferior segments. RIGHT VENTRICLE The right ventricle is mildly dilated. ATRIA The left atrium is severely dilated. The right atrium is severely dilated. Small PFO noted. AORTIC VALVE No aortic regurgitation is present. The prosthetic aortic valve appears normal. There are normal prosthetic aortic valve gradients. MITRAL VALVE Mitral annular calcification is moderate. Mitral regurgitation is severe. TRICUSPID VALVE The tricuspid valve is normal in structure. There is severe tricuspid regurgitation. There is moderate to severe pulmonary hypertension. PULMONIC VALVE The pulmonary valve is normal in structure. There is mild pulmonic valvular regurgitation. GREAT VESSELS The aortic root is normal in size. The IVC is normal in size and collapses >50% with inspiration. PERICARDIAL EFFUSION There is no pleural effusion. There is no pericardial effusion. <Conclusion> Biatrila enlargement. Dilated RV. Normal LV size. Severe LV systolic dysfunction with anteroseptal and apical akinesis as well as severe hypokinesis of the inferior, anterolateral and anterior wall segments. Overall EF 20-25%. Severe MR. Severe TR. Normally functioning aortic bioprosthesis. Moderate to severe pulmonary HTN. Paicing lead noted in RV and RA.
[2018-09-19] MEDS ORDERED: POLYETHYLENE GLYCOL 3350 17 GM/Dose PACKET PO SCH (10:00)
--- NOTE | 2018-09-19 10:10 | CP.PCM.PCO ---
Physician Communication Note - Physician Communication Note Physician Communication Note: D/W Cardio, recommends to start Lasix 40 daily+Spironolactone 25mg daily
[2018-09-19 10:20] VITALS: RESP 18; O2SAT 96
[2018-09-19] MEDS: Metoprolol Succinate 50 mg XL Tab PO SCH (11:25)
[2018-09-19 11:30] VITALS: BP 105/71; PULSE 72
[2018-09-19 12:30] VITALS: TEMP 97.6
--- NOTE | 2018-09-19 15:32 | PN ---
DATE: 09/19/2018 SUBJECTIVE: The patient is seen lying in bed on telemetry. She is comfortable at the present time although she has exertional dyspnea with minimal effort. She denies any chest pain. Her current medications include warfarin, which is on hold, trazodone, DuoNeb inhaler, Ecotrin, ferrous sulfate, iron infusion, Lasix 40 mg daily, Lipitor 80 mg daily, MiraLax, Protonix, Toprol XL 50 mg daily and Aldactone 25 mg daily. PHYSICAL EXAMINATION: GENERAL: She is a chronically ill-appearing very elderly woman. VITAL SIGNS: Blood pressure is 92/70 with a pulse of 94 with ventricular pacing, respirations 14. She is afebrile. HEENT: No JVD. CHEST: Diminished breath sounds at the bases. Few scattered rhonchi heard. HEART: PMI displaced laterally with soft tones noted. Systolic murmurs present at the lower left sternal border as well as at the apex. ABDOMEN: Soft and nontender with normoactive bowel sounds. EXTREMITIES: No edema. DIAGNOSTIC DATA: Potassium 4.6, BUN and creatinine are 50 and 1.4. White count 6.8, hemoglobin and hematocrit are 8.8 and 30.7 with platelet count of 133,000. Echocardiogram was reviewed and shows evidence of biatrial enlargement, a dilated right ventricle, severely reduced LV systolic dysfunction with apical and anteroseptal akinesis as well as severe inferior anterolateral and anterior hypokinesis, severe mitral regurgitation, severe tricuspid regurgitation noted as well. Normally functioning prosthetic valve is present. Moderate to severe pulmonary hypertension is noted as well. No pericardial effusion is seen. IMPRESSION: 1. Recent decompensated congestive heart failure following recent atrial fibrillation ablation and biventricular pacemaker implant, exact details unclear. 2. Worsened anemia and acute on chronic renal insufficiency, slowly improving. 3. Severe left ventricular dysfunction. 4. Known coronary artery disease status post prior bypass surgery and percutaneous coronary intervention. 5. Hypochromic microcytic anemia. 6. Status post aortic valve replacement. 7. History of atrial fibrillation. RECOMMENDATIONS: Oral diuretic therapy will continue for now with Aldactone and Lasix. Her medications will be adjusted as able. Hopefully with improvement in her anemia, her heart failure symptoms will improve as well. Old records are pending from to [facility] as well. I will be happy to follow along as needed. Yaw Joy MD [facility] # [id number]
--- NOTE | 2018-09-19 15:58 | CP.PCM.DIS ---
<Marc Haley - Last Filed: 09/19/18 15:58> Provider - Provider Date of Admission: 09/16/18 18:57 Attending physician: Jin Cline MD Consults: 09/16/18 18:32 Consult [Physician Consult] Stat Comment: Consulting Provider: Yaw Joy Consulting Physician: Yaw Joy Reason for Consult: recent pacemaker placement 09/19/18 11:17 TRCU [Evaluation for TRCU] Routine Comment: Physician Instructions: Reason For Exam: PT RECOMMENDATION Time Spent in preparation of Discharge (in minutes): 45 Hospital Course - Lab Results Lab Results: Micro Results 09/18/18 14:00 Blood Blood Culture - Preliminary NO GROWTH AFTER 24 HOURS 09/18/18 14:00 Blood Blood Culture - Preliminary NO GROWTH AFTER 24 HOURS 09/18/18 07:40 Urine,Clean Catch Urine Culture - Final 10-50,000 CFU/ML. MULTIPLE SPECIES. PROBABLE CONTAMINATION. Most Recent Lab Values WBC 6.8 10^3/uL (4.5-11.0) 09/19/18 06:40 RBC 4.01 10^6/uL (3.5-6.1) 09/19/18 06:40 Hgb 8.8 g/dL (12.0-16.0) L 09/19/18 06:40 Hct 30.7 % (36.0-48.0) L 09/19/18 06:40 MCV 76.6 fl (80.0-105.0) L 09/19/18 06:40 MCH 21.9 pg (25.0-35.0) L 09/19/18 06:40 MCHC 28.7 g/dl (31.0-37.0) L 09/19/18 06:40 RDW 21.9 % (11.5-14.5) H 09/19/18 06:40 Plt Count 133 10^3/uL (120.0-450.0) 09/19/18 06:40 MPV 10.0 fl (7.0-11.0) 09/19/18 06:40 Neut % (Auto) 76.7 % (50.0-68.0) H 09/19/18 06:40 Lymph % (Auto) 5.6 % (22.0-35.0) L 09/19/18 06:40 [place] % (Auto) 16.7 % (1.0-6.0) H 09/19/18 06:40 Eos % (Auto) 0.9 % (1.5-5.0) L 09/19/18 06:40 Baso % (Auto) 0.1 % (0.0-3.0) 09/19/18 06:40 Lymph # (Auto) 0.4 (1.2-3.4) L 09/19/18 06:40 [place] # (Auto) 1.1 (0.1-0.6) H 09/19/18 06:40 Eos # (Auto) 0.1 (0.0-0.7) 09/19/18 06:40 Baso # (Auto) 0.01 K/mm3 (0.0-2.0) 09/19/18 06:40 Absolute Neuts (auto) 5.19 (1.4-6.5) 09/19/18 06:40 PT 35.4 SECONDS (9.4-12.5) H 09/19/18 06:40 INR 3.13 09/19/18 06:40 APTT 42.0 Seconds (26.9-38.3) H 09/16/18 17:47 D-Dimer, Quantitative 3371 ng/mlDDU (0-243) H 09/16/18 17:47 Sodium 134 mmol/L (132-148) 09/19/18 06:40 Potassium 4.6 mmol/L (3.6-5.0) 09/19/18 06:40 Chloride 100 mmol/L (98-107) 09/19/18 06:40 Carbon Dioxide 26 mmol/L (21-33) 09/19/18 06:40 Anion Gap 13 (10-20) 09/19/18 06:40 BUN 50 mg/dL (7-21) H 09/19/18 06:40 Creatinine 1.4 mg/dl (0.7-1.2) H 09/19/18 06:40 Est GFR ( Amer) 43 09/19/18 06:40 Est GFR (Non-Af Amer) 36 09/19/18 06:40 POC Glucose (mg/dL) 177 mg/dL (65-110) H 09/19/18 11:25 Random Glucose 126 mg/dL (70-110) H 09/19/18 06:40 Calcium 8.8 mg/dL (8.4-10.5) 09/19/18 06:40 Phosphorus 5.0 mg/dL (2.5-4.5) H 09/17/18 06:15 Magnesium 2.7 mg/dL (1.7-2.2) H 09/17/18 06:15 Iron 16 ug/dL (45-180) L 09/18/18 08:15 TIBC 398 ug/dL (265-497) 09/18/18 08:15 % Saturation 4 % (20-55) L 09/18/18 08:15 Transferrin 296.82 mg/dL (206-381) 09/18/18 08:15 Ferritin 14.1 ng/mL 09/18/18 08:15 Total Bilirubin 1.4 mg/dL (0.2-1.3) H 09/19/18 06:40 AST 57 U/L (14-36) H 09/19/18 06:40 ALT 47 U/L (7-56) 09/19/18 06:40 Alkaline Phosphatase 100 U/L (38-126) 09/19/18 06:40 Lactate Dehydrogenase 788 U/L (333-699) H 09/16/18 17:26 Total Creatine Kinase 46 U/L (35-230) 09/16/18 17:26 Troponin I 0.09 ng/mL 09/16/18 17:26 NT-Pro-B Natriuret Pep 13364 pg/mL (0-450) H 09/16/18 17:26 Total Protein 6.7 g/dL (5.8-8.3) 09/19/18 06:40 Albumin 3.3 g/dL (3.0-4.8) 09/19/18 06:40 Globulin 3.4 gm/dL 09/19/18 06:40 Albumin/Globulin Ratio 1.0 (1.1-1.8) L 09/19/18 06:40 Urine Color Yellow (YELLOW) 09/18/18 07:40 Urine Appearance Clear (CLEAR) 09/18/18 07:40 Urine pH 6.0 (4.7-8.0) 09/18/18 07:40 Ur Specific [place] 1.025 (1.005-1.035) 09/18/18 07:40 Urine Protein Negative mg/dL (<30 mg/dL) 09/18/18 07:40 Urine Glucose (UA) Negative mg/dL (NEGATIVE) 09/18/18 07:40 Urine Ketones Negative mg/dL (NEGATIVE) 09/18/18 07:40 Urine Blood Negative (NEGATIVE) 09/18/18 07:40 Urine Nitrate Negative (NEGATIVE) 09/18/18 07:40 Urine Bilirubin Negative (NEGATIVE) 09/18/18 07:40 Urine Urobilinogen 0.2 E.U./dL (<1 E.U./dL) 09/18/18 07:40 Ur Leukocyte Esterase Moderate Va/uL (NEGATIVE) H 09/18/18 07:40 Urine RBC 1 - 3 /hpf (0-2) H 09/18/18 07:40 Urine WBC 20 - 25 /hpf (0-6) H 09/18/18 07:40 Ur Epithelial Cells 4 - 5 /hpf (0-5) 09/18/18 07:40 Amorphous Sediment Few /hpf (NONE) 09/18/18 07:40 Urine Bacteria Many /hpf (NONE) 09/18/18 07:40 Urine Other Uyeast /hpf 09/18/18 07:40 Ur Random Creatinine 62 mg/dL 09/17/18 14:30 U Random Total Protein 13 mg/L 09/17/18 14:30 Ur Random Sodium 33 meq/L 09/17/18 14:30 - Hospital Course Hospital Course: 87-year-old female with past medical history of coronary artery disease with CABG and stents, A. fib on Coumadin, hypertension, osteoarthritis, anxiety, recent pacemaker and ablation placement for her atrial fibrillation 6 days ago, now presents with increasing shortness of breath with exertion and generalized weakness. In the emergency room basic lab work were performed, patient was noted to have a potassium of 6.4 which was treated with insulin and Kayexalate. Patient was also found to have a creatinine of 2.4. Chest x-ray was performed and showed a prominent questionable mass. Will consider follow-up with CT. Renal ultrasound was performed for her AK I and was unremarkable. CT scan of her head was negative for any intracranial abnormalities. Patient was sent to the telemetry for continued monitoring. Cardiology was consulted regarding recent pacemaker placementwas attempted to [facility] reports of the pacemaker placement. Echo was performed and showed EF of 20-25%, severe MR, severe TR and severe hypokinesis of the inferior and anterior lateral and anterior wall segments, dilated RV. Meanwhile the patient shortness of breath improved. Patient's home losartan and Aldactone were held due to the acute kidney injury which now resolved. Patient was also found to be supratherapeutic INR and her Coumadin was held. Today the patient states that she is feeling much better and her symptoms have mostly resolved. She denies any dyspnea. Physical therapy evaluated patient and recommended TCU for deconditioning and for rehab. Will follow patient closely. 1. Shortness of breath, resolved 2. Hyperkalemia, resolved 3. Acute kidney injury 4. Atrial fibrillation on Coumadin and recent ablation with pacemaker placement 5. Coronary artery disease with CABG and stents 6. 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 Osteoarthritis 8. Anxiety 9. Hypertension 10. Supra therapeutic INR 3.93 Discharge Exam - Head Exam Head Exam: ATRAUMATIC, NORMOCEPHALIC - Eye Exam Eye Exam: EOMI, PERRL Pupil Exam: NORMAL ACCOMODATION - Respiratory Exam Respiratory Exam: Clear to PA & Lateral. absent: Rales, Rhonchi, Wheezes - Cardiovascular Exam Cardiovascular Exam: REGULAR RHYTHM, +S1, +S2 - GI/Abdominal Exam GI & Abdominal Exam: Soft. absent: Distended, Tenderness - Neurological Exam Neurological exam: Alert, CN II-XII Intact - Psychiatric Exam Psychiatric exam: Normal Mood Discharge Plan - Follow Up Plan Condition: IMPROVED Disposition: TRANSF TO SNF Instructions: Anemia Caused by Low Iron, Hyperkalemia, Acute Kidney Failure, Shortness of Breath (Dyspnea), Generalized Weakness Additional Instructions: DISCHARGE TO TRANSITIONAL CARE UNIT. Resume all inpatient medications and consultants. FOLLOW UP WITH DR. CLINE. IF EXPERIENCING CHEST PAIN OR SHORTNESS OF BREATH CALL 911 OR GO TO THE NEAREST EMERGENCY ROOM. <Jin Cline - Last Filed: 09/19/18 19:43> Provider - Provider Date of Admission: 09/16/18 18:57 Attending physician: Jin Cline MD Consults: 09/16/18 18:32 Consult [Physician Consult] Stat Comment: Consulting Provider: Yaw Joy Consulting Physician: Yaw Joy Reason for Consult: recent pacemaker placement 09/19/18 11:17 TRCU [Evaluation for TRCU] Routine Comment: Physician Instructions: Reason For Exam: PT RECOMMENDATION Hospital Course - Lab Results Lab Results: Micro Results 09/18/18 14:00 Blood Blood Culture - Preliminary NO GROWTH AFTER 24 HOURS 09/18/18 14:00 Blood Blood Culture - Preliminary NO GROWTH AFTER 24 HOURS 09/18/18 07:40 Urine,Clean Catch Urine Culture - Final 10-50,000 CFU/ML. MULTIPLE SPECIES. PROBABLE CONTAMINATION. Most Recent Lab Values WBC 6.8 10^3/uL (4.5-11.0) 09/19/18 06:40 RBC 4.01 10^6/uL (3.5-6.1) 09/19/18 06:40 Hgb 8.8 g/dL (12.0-16.0) L 09/19/18 06:40 Hct 30.7 % (36.0-48.0) L 09/19/18 06:40 MCV 76.6 fl (80.0-105.0) L 09/19/18 06:40 MCH 21.9 pg (25.0-35.0) L 09/19/18 06:40 MCHC 28.7 g/dl (31.0-37.0) L 09/19/18 06:40 RDW 21.9 % (11.5-14.5) H 09/19/18 06:40 Plt Count 133 10^3/uL (120.0-450.0) 09/19/18 06:40 MPV 10.0 fl (7.0-11.0) 09/19/18 06:40 Neut % (Auto) 76.7 % (50.0-68.0) H 09/19/18 06:40 Lymph % (Auto) 5.6 % (22.0-35.0) L 09/19/18 06:40 [place] % (Auto) 16.7 % (1.0-6.0) H 09/19/18 06:40 Eos % (Auto) 0.9 % (1.5-5.0) L 09/19/18 06:40 Baso % (Auto) 0.1 % (0.0-3.0) 09/19/18 06:40 Lymph # (Auto) 0.4 (1.2-3.4) L 09/19/18 06:40 [place] # (Auto) 1.1 (0.1-0.6) H 09/19/18 06:40 Eos # (Auto) 0.1 (0.0-0.7) 09/19/18 06:40 Baso # (Auto) 0.01 K/mm3 (0.0-2.0) 09/19/18 06:40 Absolute Neuts (auto) 5.19 (1.4-6.5) 09/19/18 06:40 PT 35.4 SECONDS (9.4-12.5) H 09/19/18 06:40 INR 3.13 09/19/18 06:40 APTT 42.0 Seconds (26.9-38.3) H 09/16/18 17:47 D-Dimer, Quantitative 3371 ng/mlDDU (0-243) H 09/16/18 17:47 Sodium 134 mmol/L (132-148) 09/19/18 06:40 Potassium 4.6 mmol/L (3.6-5.0) 09/19/18 06:40 Chloride 100 mmol/L (98-107) 09/19/18 06:40 Carbon Dioxide 26 mmol/L (21-33) 09/19/18 06:40 Anion Gap 13 (10-20) 09/19/18 06:40 BUN 50 mg/dL (7-21) H 09/19/18 06:40 Creatinine 1.4 mg/dl (0.7-1.2) H 09/19/18 06:40 Est GFR ( Amer) 43 09/19/18 06:40 Est GFR (Non-Af Amer) 36 09/19/18 06:40 POC Glucose (mg/dL) 111 mg/dL (65-110) H 09/19/18 16:14 Random Glucose 126 mg/dL (70-110) H 09/19/18 06:40 Calcium 8.8 mg/dL (8.4-10.5) 09/19/18 06:40 Phosphorus 5.0 mg/dL (2.5-4.5) H 09/17/18 06:15 Magnesium 2.7 mg/dL (1.7-2.2) H 09/17/18 06:15 Iron 16 ug/dL (45-180) L 09/18/18 08:15 TIBC 398 ug/dL (265-497) 09/18/18 08:15 % Saturation 4 % (20-55) L 09/18/18 08:15 Transferrin 296.82 mg/dL (206-381) 09/18/18 08:15 Ferritin 14.1 ng/mL 09/18/18 08:15 Total Bilirubin 1.4 mg/dL (0.2-1.3) H 09/19/18 06:40 AST 57 U/L (14-36) H 09/19/18 06:40 ALT 47 U/L (7-56) 09/19/18 06:40 Alkaline Phosphatase 100 U/L (38-126) 09/19/18 06:40 Lactate Dehydrogenase 788 U/L (333-699) H 09/16/18 17:26 Total Creatine Kinase 46 U/L (35-230) 09/16/18 17:26 Troponin I 0.09 ng/mL 09/16/18 17:26 NT-Pro-B Natriuret Pep 07838 pg/mL (0-450) H 09/16/18 17:26 Total Protein 6.7 g/dL (5.8-8.3) 09/19/18 06:40 Albumin 3.3 g/dL (3.0-4.8) 09/19/18 06:40 Globulin 3.4 gm/dL 09/19/18 06:40 Albumin/Globulin Ratio 1.0 (1.1-1.8) L 09/19/18 06:40 Urine Color Yellow (YELLOW) 09/18/18 07:40 Urine Appearance Clear (CLEAR) 09/18/18 07:40 Urine pH 6.0 (4.7-8.0) 09/18/18 07:40 Ur Specific [place] 1.025 (1.005-1.035) 09/18/18 07:40 Urine Protein Negative mg/dL (<30 mg/dL) 09/18/18 07:40 Urine Glucose (UA) Negative mg/dL (NEGATIVE) 09/18/18 07:40 Urine Ketones Negative mg/dL (NEGATIVE) 09/18/18 07:40 Urine Blood Negative (NEGATIVE) 09/18/18 07:40 Urine Nitrate Negative (NEGATIVE) 09/18/18 07:40 Urine Bilirubin Negative (NEGATIVE) 09/18/18 07:40 Urine Urobilinogen 0.2 E.U./dL (<1 E.U./dL) 09/18/18 07:40 Ur Leukocyte Esterase Moderate Va/uL (NEGATIVE) H 09/18/18 07:40 Urine RBC 1 - 3 /hpf (0-2) H 09/18/18 07:40 Urine WBC 20 - 25 /hpf (0-6) H 09/18/18 07:40 Ur Epithelial Cells 4 - 5 /hpf (0-5) 09/18/18 07:40 Amorphous Sediment Few /hpf (NONE) 09/18/18 07:40 Urine Bacteria Many /hpf (NONE) 09/18/18 07:40 Urine Other Uyeast /hpf 09/18/18 07:40 Ur Random Creatinine 62 mg/dL 09/17/18 14:30 U Random Total Protein 13 mg/L 09/17/18 14:30 Ur Random Sodium 33 meq/L 09/17/18 14:30 - Hospital Course Hospital Course: Pt seen and examined by me. I have reviewed the note of the medical services manager and I agree with it. I have discussed the assessment and plan with the resident. I have reviewed the medications and the last labs.
--- NOTE | 2018-09-20 04:36 | DS ---
HOSPITAL COURSE: Patient was seen and examined. I do agree with the note of medical aides teacher. I was involved in the plan of care. Patient had initially come to the hospital because of shortness of breath. She had improvement in her symptoms. She also had hypokalemia and acute kidney injury. She was given diuretic therapy. She was given Kayexalate and potassium, improved. She had these complications from a pacemaker that was placed. She has EF of 20-25%. She had CHF secondary to systolic dysfunction. She has severe MR and severe TR. She is followed by Cardiology. Patient had an elevated INR and her Coumadin has been on hold. She is going to transitional care unit for rehab and she will be followed there. Jin Cline MD
== END 2018-09-19 16:54 | DRG 683 ==
LOC: ED 16:24 → ERH 18:57 → 2RSO 09-17 13:43
PROVIDERS: ADMIT Internal Medicine Nephrology; ATTEND Internal Medicine Nephrology
PROC: 3E0F7GC Introduction of Other Therapeutic Substance into Respiratory Tract, Via Natural or Artificial Opening (ICD-10-PCS; principal; 2018-09-18)
DX: N17.9 Acute kidney failure, unspecified (principal); I50.22 Chronic systolic (congestive) heart failure; I13.0 Hypertensive heart and chronic kidney disease with heart failure and stage 1 through stage 4 chronic kidney disease, or unspecified chronic kidney disease; E87.5 Hyperkalemia; D50.9 Iron deficiency anemia, unspecified; I48.91 Unspecified atrial fibrillation; I25.10 Atherosclerotic heart disease of native coronary artery without angina pectoris; F41.9 Anxiety disorder, unspecified; N18.9 Chronic kidney disease, unspecified; I08.1 Rheumatic disorders of both mitral and tricuspid valves; E78.5 Hyperlipidemia, unspecified; R06.09 Other forms of dyspnea; N28.1 Cyst of kidney, acquired; R91.8 Other nonspecific abnormal finding of lung field; Z66 Do not resuscitate; R79.1 Abnormal coagulation profile; Z79.01 Long term (current) use of anticoagulants; Z95.5 Presence of coronary angioplasty implant and graft; Z95.0 Presence of cardiac pacemaker; Z95.1 Presence of aortocoronary bypass graft; Z95.2 Presence of prosthetic heart valve

== ENCOUNTER 2018-09-19 16:31 | Inpatient (IN) | payer OTHER, BC ==
[2018-09-19 17:05] VITALS: BMI 27.6
[2018-09-19] MEDS ORDERED: Benzocaine/Menthol (Cepacol) Lozenge MT PRN (17:22)
[2018-09-19] MEDS ORDERED: Pneumococcal 23-Valent Vaccine IM ONE (21:49)
[2018-09-19] MEDS ORDERED: Influenza Vaccine 60 mcg/0.5 mL SYR (4YR UP) IM ONE (21:49)
[2018-09-19] MEDS: Albuterol-Ipratrop 3 mg / 0.5 (3 ml) UD IH SCH (22:00)
[2018-09-20] MEDS: Albuterol-Ipratrop 3 mg / 0.5 (3 ml) UD IH SCH ×4 (02:14→19:46)
[2018-09-20] MEDS: Albuterol-Ipratrop 3 mg / 0.5 (3 ml) UD IH PRN (06:20)
[2018-09-20] MEDS: Pantoprazole 40 mg EC Tab PO SCH (06:34)
[2018-09-20 07:12] LABS: INR 2.67; PROTHROMBIN TIME 30.2 SECONDS (9.4-12.5)
[2018-09-20] MEDS: Metoprolol Succinate 50 mg XL Tab PO SCH (08:28)
--- NOTE | 2018-09-20 09:21 | CP.PCM.HP ---
<Marc Haley - Last Filed: 09/20/18 09:27> History of Present Illness - History of Present Illness History of Present Illness: H&P for Dr Cline: 87-year-old female with past medical history of coronary artery disease with CABG and stents, A. fib on Coumadin, hypertension, osteoarthritis, anxiety, recent pacemaker and ablation placement for her atrial fibrillation 6 days ago, now presents with increasing shortness of breath with exertion and generalized weakness. In the emergency room basic lab work were performed, patient was noted to have a potassium of 6.4 which was treated with insulin and Kayexalate. Patient was also found to have a creatinine of 2.4. Chest x-ray was performed and showed a prominent questionable mass. Will consider follow-up with CT. Renal ultrasound was performed for her AK I and was unremarkable. CT scan of her head was negative for any intracranial abnormalities. Patient was sent to the telemetry for continued monitoring. Cardiology was consulted regarding recent pacemaker placementwas attempted to reach [facility] for reports of the pacemaker placement. Echo was performed and showed EF of 20-25%, severe MR, severe TR and severe hypokinesis of the inferior and anterior lateral and anterior wall segments, dilated RV. Meanwhile the patient shortness of breath improved. Patient's home losartan and Aldactone were held due to the acute kidney injury which now resolved. Patient was also found to be supratherapeutic INR and her Coumadin was held. Today the patient states that she is feeling much better and her symptoms have mostly resolved. She denies any dyspnea. Physical therapy evaluated patient and recommended TCU for deconditioning and for rehab. Will follow patient closely. Today the patient states that she is feeling better. Her shortness of breath and generalized weakness has now resolved. She has no other complaints at this time. 12 point ROS performed and negative other than stated above 12 point ROS performed and negative other than as stated above PMH: As above PSH: CABG 30 years ago, heart valve replacementlikely prosthetic (reported Pig valve), Pacemaker and ablation 1 week ago Medications: Refer to MAR Allergies: Iodine and sulfa SH: Denies any smoking, drinking, or drugs FH: Sister with kidney disease long time ago Present on Admission - Present on Admission Any Indicators Present on Admission: No Review of Systems - Review of Systems All systems: reviewed and no additional remarkable complaints except Past Patient History - Past Social History Smoking Status: Never Smoked - CARDIAC Hx Pacemaker: No - PULMONARY Hx Respiratory Disorders: No - NEUROLOGICAL Hx Neurological Disorder: No - HEENT Hx HEENT Problems: No - RENAL Hx Chronic Kidney Disease: No - ENDOCRINE/METABOLIC Hx Endocrine Disorders: No - HEMATOLOGICAL/ONCOLOGICAL Hx Blood Disorders: No - INTEGUMENTARY Hx Dermatological Problems: No - MUSCULOSKELETAL/RHEUMATOLOGICAL Hx Falls: No - GASTROINTESTINAL Hx Gastrointestinal Disorders: No - GENITOURINARY/GYNECOLOGICAL Hx Genitourinary Disorders: Yes (URGENCY) Hx Reproductive Disorders: No - PSYCHIATRIC Hx Psychophysiologic Disorder: Yes Hx Depression: Yes - SURGICAL HISTORY Hx Coronary Stent: Yes Other/Comment: Pacemaker - ANESTHESIA Hx Anesthesia Reactions: No Hx Malignant Hyperthermia: No Meds Allergies/Adverse Reactions: Allergies Allergy/AdvReac Type Severity Reaction Status Date / Time iodine Allergy ANAPHYLAXIS Verified 09/19/18 17:40 Sulfa (Sulfonamide Allergy ANAPHYLAXIS Verified 09/19/18 17:40 Antibiotics) Physical Exam - Constitutional Appears: No Acute Distress - Head Exam Head Exam: ATRAUMATIC, NORMOCEPHALIC - Eye Exam Eye Exam: EOMI, PERRL - ENT Exam ENT Exam: Mucous Membranes Moist - Respiratory Exam Respiratory Exam: Clear to Auscultation Bilateral. absent: Rales, Rhonchi, Wheezes - Cardiovascular Exam Cardiovascular Exam: REGULAR RHYTHM, RRR, +S1, +S2 - GI/Abdominal Exam GI & Abdominal Exam: Normal Bowel Sounds, Soft. absent: Distended, Tenderness - Extremities Exam Extremities exam: Negative for: calf tenderness, pedal edema - Neurological Exam Neurological exam: Alert, Oriented x3 - Psychiatric Exam Psychiatric exam: Normal Mood - Skin Skin Exam: Dry, Warm Results - Vital Signs Recent Vital Signs: Last Vital Signs Temp 97.7 F 09/19/18 21:39 Pulse 89 09/20/18 08:28 Resp 20 09/19/18 21:39 BP 107/68 09/20/18 08:28 Pulse Ox - Labs Labs: Laboratory Results - last 24 hr 09/20/18 05:00 PT 30.2 H INR 2.67 Assessment & Plan - Assessment and Plan (Free Text) Assessment: 1. Shortness of breath, resolved 2. Hyperkalemia, resolved 3. Acute kidney injury 4. Atrial fibrillation on Coumadin and recent ablation with pacemaker placement 5. Coronary artery disease with CABG and stents 6. 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 Osteoarthritis 8. Anxiety 9. Hypertension 10. Supra therapeutic INR, resolved 11. Anemia, iron def Her shortness of breath has now resolved. Cont with Duonebs. Pt with recent pacemaker placement, cardiology consulted f/u report from [facility], Echo was performed and showed EF of 20-25%, severe MR, severe TR and severe hypokinesis of the inferior and anterior lateral and anterior wall segments, dilated RV. Continue with Duonebs. Hyperkalemia has resolved, cont to monitor. For her LOUISA dec to Cr 1.4 yesterday, renal ultrasound which was unremarkable. Resume patient's home losartan and Aldactone as LOUISA now resolved. For her henderson ry artery disease continue aspirin, lipitor and beta-blockers. For her hypertension Continue with metoprolol. For her anxiety continue with Xanax as needed. Patient has therapeutic INR, cont Coumadin, follow up daily INRs. For her anemia continue Venofer daily for 3 days. Continue with heart healthy diet. Physical therapy evaluation. Continue to monitor for any changes. Case and plan was reviewed and discussed with Dr. Cline. <Jin Cline S - Last Filed: 09/20/18 21:18> Results - Vital Signs Recent Vital Signs: Last Vital Signs Temp 97.7 F 09/20/18 16:00 Pulse 89 09/20/18 16:00 Resp 20 09/20/18 16:00 BP 99/65 L 09/20/18 16:00 Pulse Ox 98 09/20/18 16:00 - Labs Labs: Laboratory Results - last 24 hr 09/20/18 05:00 PT 30.2 H INR 2.67 Assessment & Plan - Assessment and Plan (Free Text) Assessment: Pt seen and examined by me. I have reviewed the note of the medical director of hospice and I agree with it. I have discussed the assessment and plan with the resident. I have reviewed the medications and the last labs.
[2018-09-20] MEDS: POLYETHYLENE GLYCOL 3350 17 GM/Dose PACKET PO SCH (10:45)
--- NOTE | 2018-09-20 20:12 | PN ---
DATE: 09/20/2018 SUBJECTIVE: The patient is seen lying in bed on Transitional Care Unit. She is comfortable at the present time. She denies any chest pain. She continues to have some exertional dyspnea. CURRENT MEDICATIONS: Include Aldactone 25 mg daily, Coumadin, trazodone, DuoNeb inhaler, Ecotrin, ferrous sulfate, iron infusion, Lasix 40 mg daily, Lipitor 80 mg daily, Protonix, and Toprol XL. OBJECTIVE: GENERAL: She is a very elderly woman who is comfortable at the present time. VITAL SIGNS: Blood pressure is 100/72, pulse of 90, respirations are 16, and she is afebrile. HEENT/NECK: No JVD. CHEST: Diminished breath sounds at the bases. Few scattered rhonchi heard. HEART: PMI displaced laterally with soft tones noted. Systolic murmurs present at the lower left sternal border as well as at the apex. ABDOMEN: Soft and nontender with normoactive bowel sounds. EXTREMITIES: No edema. DIAGNOSTIC DATA: INR is 2.67. IMPRESSION: 1. Decompensated congestive heart failure, [id number], predominantly systolic. 2. Status post recent ablation of atrial fibrillation with a biventricular pacemaker implant. 3. Anemia, etiology uncertain. 4. [id number] renal failure. 5. Coronary disease status post prior bypass surgery and percutaneous coronary intervention. 6. Status post aortic valve replacement. 7. Problems as noted. RECOMMENDATIONS: Continue management. Attempts have been made to contact her prior talent management manager at [facility] [place] and call back is pending. Continue conservative management is advised. We will continue to follow and make further recommendation as appropriate. Yaw Joy MD
--- NOTE | 2018-09-21 01:01 | PN ---
DATE: 09/20/2018 The patient is seen and examined. I do agree with the note of the medical insurance coding specialist. The patient was admitted to the transitional care unit for rehabilitation. I did review the notes from the hospital. The patient was initially admitted to the hospital because of shortness of breath. The patient's shortness of breath has improved. She was found to have acute kidney injury that has also improved. The patient had a recent ablation. She has atrial fibrillation and is on anticoagulation with Coumadin. The patient is on Lipitor for dyslipidemia. She is on aspirin for her coronary artery disease. She is getting Venofer because of iron deficiency. She is also DNR. She currently feels well. She is on iron supplements as well. She is receiving Xanax three times a day as needed. Jin Cline MD
[2018-09-21] MEDS: Albuterol-Ipratrop 3 mg / 0.5 (3 ml) UD IH SCH ×5 (01:35→20:21)
[2018-09-21] MEDS: Pantoprazole 40 mg EC Tab PO SCH (05:03)
[2018-09-21 07:09] LABS: INR 2.68; PROTHROMBIN TIME 30.3 SECONDS (9.4-12.5)
[2018-09-21] MEDS ORDERED: metOLazone 5 MG TAB PO ONE (09:15)
[2018-09-21] MEDS: Metoprolol Succinate 50 mg XL Tab PO SCH (09:17)
[2018-09-21] MEDS: POLYETHYLENE GLYCOL 3350 17 GM/Dose PACKET PO SCH (09:17)
[2018-09-21 09:46] LABS: CALCIUM 9.1 mg/dL (8.4-10.5)
--- NOTE | 2018-09-21 09:55 | CP.PCM.PN ---
<Marc Haley - Last Filed: 09/21/18 10:04> Subjective - Date & Time of Evaluation Date of Evaluation: 09/21/18 Time of Evaluation: 07:10 - Subjective Subjective: Medicine progress note: Patient seen and examined at bedside. No acute events overnight. She states that she is doing well with PT. Slept better last night. No complaints. 12 point ROS performed and negative other than stated above Objective - Vital Signs/Intake and Output Vital Signs (last 24 hours): Temp Pulse Resp BP Pulse Ox 97.7 F 90 20 99/64 L 98 09/20/18 16:00 09/21/18 09:17 09/20/18 16:00 09/21/18 09:17 09/20/18 16:00 - Medications Medications: Current Medications Albuterol/Ipratropium (Duoneb 3 Mg/0.5 Mg (3 Ml) Ud) 3 ml IH [id number] [facility]; Protocol Last Admin: 09/21/18 07:50 Dose: 3 ml Albuterol/Ipratropium (Duoneb 3 Mg/0.5 Mg (3 Ml) Ud) 3 ml IH Q2H PRN; Protocol PRN Reason: Shortness of Breath Last Admin: 09/20/18 06:20 Dose: 3 ml Alprazolam (Xanax) 0.25 mg PO TID PRN; Protocol PRN Reason: Anxiety Stop: 09/26/18 18:01 Last Admin: 09/20/18 11:54 Dose: 0.25 mg Aspirin (Ecotrin) 81 mg PO 0800 [facility]; Protocol Last Admin: 09/21/18 08:45 Dose: 81 mg Atorvastatin Calcium (Lipitor) 80 mg PO DIN [facility]; Protocol Last Admin: 09/20/18 17:42 Dose: 80 mg Benzocaine/Menthol (Cepacol Sore Throat) 1 pedro MT Q2H PRN; Protocol PRN Reason: Sore Throat Ferrous Sulfate (Feosol) 324 mg PO BID [facility]; Protocol Last Admin: 09/21/18 09:15 Dose: 324 mg Furosemide (Lasix) 40 mg PO DAILY [facility]; Protocol Last Admin: 09/21/18 09:16 Dose: Not Given Iron Sucrose 200 mg/ Sodium (Chloride) 110 mls @ 110 mls/hr IVPB 0600 [facility]; Protocol Stop: 09/21/18 11:01 Last Admin: 09/21/18 05:03 Dose: 110 mls/hr Metoprolol Succinate (Toprol Xl) 50 mg PO BRK [facility]; Protocol Last Admin: 09/21/18 09:17 Dose: Not Given Pantoprazole Sodium (Protonix Ec Tab) 40 mg PO 0600 [facility]; Protocol Last Admin: 09/21/18 05:03 Dose: 40 mg Polyethylene Glycol (Miralax) 17 gm PO DAILY [facility]; Protocol Last Admin: 09/21/18 09:17 Dose: 17 gm Spironolactone (Aldactone) 25 mg PO DAILY [facility]; Protocol Last Admin: 09/21/18 09:15 Dose: 25 mg Trazodone HCl (Desyrel) 25 mg PO HS PRN; Protocol PRN Reason: Insomnia Warfarin Sodium (Coumadin) 2 mg PO 1800 [facility]; Protocol Last Admin: 09/20/18 17:41 Dose: 2 mg - Labs Labs: 09/21/18 09:15 PT 30.3 SECONDS (9.4-12.5) H 09/21/18 06:45 INR 2.68 09/21/18 06:45 - Constitutional Appears: No Acute Distress - Head Exam Head Exam: ATRAUMATIC, NORMOCEPHALIC - Eye Exam Eye Exam: EOMI, PERRL - ENT Exam ENT Exam: Mucous Membranes Moist - Respiratory Exam Respiratory Exam: Clear to Ausculation Bilateral. absent: Wheezes - Cardiovascular Exam Cardiovascular Exam: REGULAR RHYTHM, +S1, +S2 - GI/Abdominal Exam GI & Abdominal Exam: Soft. absent: Distended, Tenderness - Extremities Exam Extremities Exam: absent: Calf Tenderness, Pedal Edema - Neurological Exam Neurological Exam: Alert, Awake, Oriented x3 - Psychiatric Exam Psychiatric exam: Normal Mood - Skin Skin Exam: Dry, Warm Assessment and Plan - Assessment and Plan (Free Text) Assessment: 1. Shortness of breath, resolved 2. Hyperkalemia, resolved 3. Acute kidney injury, resolved 4. Atrial fibrillation on Coumadin and recent ablation with pacemaker placement 5. Coronary artery disease with CABG and stents 6. 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 Osteoarthritis 8. Anxiety 9. Hypertension 10. Supra therapeutic INR, resolved 11. Anemia, iron def Cont physical therapy in the TCU. Cont with Duonebs for her shortness of breath. Pt with recent pacemaker placement, cardiology consulted f/u report from [facility], Echo was performed and showed EF of 20-25%, severe MR, severe TR and severe hypokinesis of the inferior and anterior lateral and anterior wall segments, dilated RV. Hyperkalemia has resolved, cont to monitor. For her LOUISA resolved, cont to monitor. Cont home losartan and Aldactone. For her CAD continue aspirin, lipitor and beta-blockers. For her hypertension Continue with losartan and metoprolol. For her anxiety continue with Xanax as needed. Patient has therapeutic INR, cont Coumadin, follow up daily INRs. For her anemia continue Venofer daily for 3 days, today day 3of 3. Continue with heart healthy diet. Physical therapy evaluation. Continue to monitor for any changes. Case and plan was reviewed and discussed with Dr. Cline. <Jin Cline S - Last Filed: 09/21/18 16:14> Objective - Vital Signs/Intake and Output Vital Signs (last 24 hours): Temp Pulse Resp BP Pulse Ox 98.7 F 94 H 20 93/62 L 100 09/21/18 10:00 09/21/18 10:00 09/21/18 10:00 09/21/18 10:00 09/21/18 10:00 - Medications Medications: Current Medications Albuterol/Ipratropium (Duoneb 3 Mg/0.5 Mg (3 Ml) Ud) 3 ml IH [id number] [facility]; Protocol Last Admin: 09/21/18 13:51 Dose: 3 ml Albuterol/Ipratropium (Duoneb 3 Mg/0.5 Mg (3 Ml) Ud) 3 ml IH Q2H PRN; Protocol PRN Reason: Shortness of Breath Last Admin: 09/20/18 06:20 Dose: 3 ml Alprazolam (Xanax) 0.25 mg PO TID PRN; Protocol PRN Reason: Anxiety Stop: 09/26/18 18:01 Last Admin: 09/20/18 11:54 Dose: 0.25 mg Aspirin (Ecotrin) 81 mg PO 0800 [facility]; Protocol Last Admin: 09/21/18 08:45 Dose: 81 mg Atorvastatin Calcium (Lipitor) 80 mg PO DIN [facility]; Protocol Last Admin: 09/20/18 17:42 Dose: 80 mg Benzocaine/Menthol (Cepacol Sore Throat) 1 pedro MT Q2H PRN; Protocol PRN Reason: Sore Throat Ferrous Sulfate (Feosol) 324 mg PO BID [facility]; Protocol Last Admin: 09/21/18 09:15 Dose: 324 mg Furosemide (Lasix) 40 mg PO DAILY [facility]; Protocol Last Admin: 09/21/18 09:16 Dose: Not Given Metoprolol Succinate (Toprol Xl) 50 mg PO BRK [facility]; Protocol Last Admin: 09/21/18 09:17 Dose: Not Given Pantoprazole Sodium (Protonix Ec Tab) 40 mg PO 0600 [facility]; Protocol Last Admin: 09/21/18 05:03 Dose: 40 mg Polyethylene Glycol (Miralax) 17 gm PO DAILY [facility]; Protocol Last Admin: 09/21/18 09:17 Dose: 17 gm Spironolactone (Aldactone) 25 mg PO DAILY [facility]; Protocol Last Admin: 09/21/18 09:15 Dose: 25 mg Trazodone HCl (Desyrel) 25 mg PO HS PRN; Protocol PRN Reason: Insomnia Warfarin Sodium (Coumadin) 2 mg PO 1800 [facility]; Protocol Last Admin: 09/20/18 17:41 Dose: 2 mg - Labs Labs: 09/21/18 09:15 PT 30.3 SECONDS (9.4-12.5) H 09/21/18 06:45 INR 2.68 09/21/18 06:45 Assessment and Plan - Assessment and Plan (Free Text) Assessment: Pt seen and examined by me. I have reviewed the note of the medical practice manager and I agree with it. I have discussed the assessment and plan with the resident. I have reviewed the medications and the last labs.
--- NOTE | 2018-09-21 13:53 | PN ---
DATE: 09/21/2018 SUBJECTIVE: The patient was seen lying in bed on Transitional Care Unit. She is comfortable at rest, but states she becomes easily dyspneic with exertion. Peripheral edema persists. Her current medications include Aldactone 25 mg daily, Coumadin, trazodone, DuoNeb inhaler, Ecotrin, ferrous sulfate, iron infusion, Lasix 40 mg daily, Lipitor 80 mg daily, Protonix, Toprol XL 50 mg daily. PHYSICAL EXAMINATION: GENERAL: She is a very elderly woman who is comfortable at rest. VITAL SIGNS: Blood pressure is 100/66 with a pulse of 90, respirations are 14. She is afebrile. HEENT: No JVD. CHEST: Diminished breath sounds at the bases. HEART: PMI displaced laterally with crisp valve sounds noted and systolic murmur is present at the lower left sternal border and apex. ABDOMEN: Soft and nontender with normoactive bowel sounds. EXTREMITIES: 2+ leg edema. DIAGNOSTIC DATA: The INR is 2.68. IMPRESSION: 1. Decompensated congestive heart failure, [id number], predominantly systolic, slow to improve. 2. History of atrial fibrillation status post ablation procedure with placement of biventricular pacing system. 3. Microcytic hypochromic anemia, undergoing iron transfusion. 4. Renal insufficiency appears back to baseline. 5. Coronary artery disease, status post prior bypass surgery and percutaneous coronary intervention, stable at present. 6. Status post aortic valve replacement. RECOMMENDATIONS: Continue diuretic therapy as advised. One dose of Zaroxolyn will be ordered for today and her renal function and potassium levels will be monitored. Records have been requested from her banana grader at [facility] and we await their arrival for further review. In general, conservative management appears most appropriate. I will be happy to follow along and make further recommendations as appropriate. Yaw Joy MD
--- NOTE | 2018-09-21 19:50 | PN ---
DATE: 09/21/2018 SUBJECTIVE: The patient was seen and examined, I do agree with the note of the medical office receptionist assistant. The patient had acute kidney injury that has resolved. The patient's hypokalemia has improved. She is on Coumadin for her atrial fibrillation. The patient has coronary artery disease and CABG. She is on aspirin and beta-blockers. The patient is currently on Coumadin for her anticoagulation. She is getting physical therapy. She feels that she is getting stronger. She is eating well. She denies any pain. Jin Cline MD
[2018-09-22] MEDS: Albuterol-Ipratrop 3 mg / 0.5 (3 ml) UD IH SCH ×4 (02:45→19:51)
[2018-09-22] MEDS: Pantoprazole 40 mg EC Tab PO SCH (05:25)
[2018-09-22] MEDS: Metoprolol Succinate 50 mg XL Tab PO SCH (08:27)
--- NOTE | 2018-09-22 08:58 | CP.PCM.CON ---
<ChadVero - Last Filed: 09/22/18 10:28> History of Present Illness - History of Present Illness History of Present Illness: 87 yo female with past medical history of coronary artery disease with CABG and stents, A. fib on Coumadin, hypertension, osteoarthritis, anxiety, recent pacemaker and ablation placement for her atrial fibrillation seen and evaluated at bedside for left leg wound. Patient admits to mild pain. Denies f/n/v/sob. PMH: As above PSH: CABG 30 years ago, heart valve replacementlikely prosthetic (reported Pig valve), Pacemaker and ablation 1 week ago Medications: Refer to [facility] Allergies: Iodine and sulfa SH: Denies any smoking, drinking, or drugs FH: Sister with kidney disease long time ago Past Patient History - Past Social History Smoking Status: Never Smoked - CARDIAC Hx Cardiac Disorders: Yes (A fib, on coumadin, recent ablation with pacemaker insertion. CAD, CABG) Hx Hypertension: Yes - PULMONARY Hx Respiratory Disorders: No - NEUROLOGICAL Hx Neurological Disorder: No - HEENT Hx HEENT Problems: No - RENAL Hx Chronic Kidney Disease: No - ENDOCRINE/METABOLIC Hx Endocrine Disorders: No - HEMATOLOGICAL/ONCOLOGICAL Hx Blood Disorders: No - INTEGUMENTARY Hx Dermatological Problems: No - MUSCULOSKELETAL/RHEUMATOLOGICAL Hx Arthritis: Yes - GASTROINTESTINAL Hx Gastrointestinal Disorders: No - GENITOURINARY/GYNECOLOGICAL Hx Genitourinary Disorders: Yes (URGENCY) Hx Reproductive Disorders: No - PSYCHIATRIC Hx Psychophysiologic Disorder: Yes Hx Depression: Yes - SURGICAL HISTORY Hx Coronary Stent: Yes Other/Comment: Pacemaker - ANESTHESIA Hx Anesthesia Reactions: No Hx Malignant Hyperthermia: No Meds Allergies/Adverse Reactions: Allergies Allergy/AdvReac Type Severity Reaction Status Date / Time iodine Allergy ANAPHYLAXIS Verified 09/19/18 17:40 Sulfa (Sulfonamide Allergy ANAPHYLAXIS Verified 09/19/18 17:40 Antibiotics) - Medications Medications: Current Medications Albuterol/Ipratropium (Duoneb 3 Mg/0.5 Mg (3 Ml) Ud) 3 ml IH [id number] [facility]; Protocol Last Admin: 09/22/18 07:22 Dose: 3 ml Albuterol/Ipratropium (Duoneb 3 Mg/0.5 Mg (3 Ml) Ud) 3 ml IH Q2H PRN; Protocol PRN Reason: Shortness of Breath Last Admin: 09/20/18 06:20 Dose: 3 ml Alprazolam (Xanax) 0.25 mg PO TID PRN; Protocol PRN Reason: Anxiety Stop: 09/26/18 18:01 Last Admin: 09/21/18 17:48 Dose: 0.25 mg Aspirin (Ecotrin) 81 mg PO 0800 [facility]; Protocol Last Admin: 09/22/18 08:27 Dose: 81 mg Atorvastatin Calcium (Lipitor) 80 mg PO DIN [facility]; Protocol Last Admin: 09/21/18 17:44 Dose: 80 mg Benzocaine/Menthol (Cepacol Sore Throat) 1 pedro MT Q2H PRN; Protocol PRN Reason: Sore Throat Ferrous Sulfate (Feosol) 324 mg PO BID [facility]; Protocol Last Admin: 09/21/18 17:44 Dose: 324 mg Furosemide (Lasix) 40 mg PO DAILY [facility]; Protocol Last Admin: 09/21/18 09:16 Dose: Not Given Metolazone (Zaroxolyn) 5 mg PO ONCE ONE Stop: 09/22/18 09:31 Metoprolol Succinate (Toprol Xl) 50 mg PO BRK [facility]; Protocol Last Admin: 09/22/18 08:27 Dose: 50 mg Pantoprazole Sodium (Protonix Ec Tab) 40 mg PO 0600 [facility]; Protocol Last Admin: 09/22/18 05:25 Dose: 40 mg Polyethylene Glycol (Miralax) 17 gm PO DAILY [facility]; Protocol Last Admin: 09/21/18 09:17 Dose: 17 gm Spironolactone (Aldactone) 25 mg PO DAILY [facility]; Protocol Last Admin: 09/21/18 09:15 Dose: 25 mg Trazodone HCl (Desyrel) 25 mg PO HS PRN; Protocol PRN Reason: Insomnia Warfarin Sodium (Coumadin) 2 mg PO 1800 [facility]; Protocol Last Admin: 09/21/18 17:44 Dose: 2 mg Physical Exam - Head Exam Head Exam: ATRAUMATIC, NORMOCEPHALIC - Eye Exam Eye Exam: Normal appearance - ENT Exam ENT Exam: Mucous Membranes Moist - Neck Exam Neck exam: Positive for: Normal Inspection - Respiratory Exam Respiratory Exam: NORMAL BREATHING PATTERN - Cardiovascular Exam Cardiovascular Exam: REGULAR RHYTHM, +S1, +S2 - Extremities Exam Additional comments: B/L leg exam: Vascular: DP/PT 1/4, CFT <3 secs x 5, TG warm to warm, minimal edema and erythema Derm: superficial tear of the skin on anterior aspect of the leg, 100% granular base, no clinical signs of infection, no other open lesions deep tissue injury to posterior aspect of the right leg , no signs of infection ortho: pain on palpation to the wound NEuro: protective sensation diminished via ipswich 0/4 - Neurological Exam Neurological exam: Alert Results - Vital Signs Recent Vital Signs: Last Vital Signs Temp 98.7 F 09/21/18 10:00 Pulse 91 H 09/21/18 16:22 Resp 20 09/21/18 10:00 BP 93/62 L 09/21/18 10:00 Pulse Ox 100 09/21/18 16:22 - Labs Result Diagrams: 09/21/18 09:15 Labs: Laboratory Results - last 24 hr 09/21/18 09:15 Sodium 131 L Potassium 5.5 H Chloride 97 L Carbon Dioxide 26 Anion Gap 14 BUN 43 H Creatinine 1.4 H Est GFR ( Amer) 43 Est GFR (Non-Af Amer) 36 Random Glucose 72 Calcium 9.1 Assessment & Plan - Assessment and Plan (Free Text) Assessment: 87 yo male seen and evaluated for left leg superficial tear of the skin; non infected and right leg deep tissue injury on posterior calf. Plan: Patient seen and evaluated chart, labs and vitals reviewed; afebrile and absent leukocytosis Wcx ordered and pending Left leg cleansed and dressed with optifoam, and mepilex Podiatry will continue to follow No clinical signs of infection, await c/s <Gui Vivas - Last Filed: 09/25/18 12:41> Meds - Medications Medications: Current Medications Albuterol/Ipratropium (Duoneb 3 Mg/0.5 Mg (3 Ml) Ud) 3 ml IH Q2H PRN; Protocol PRN Reason: Shortness of Breath Last Admin: 09/20/18 06:20 Dose: 3 ml Alprazolam (Xanax) 0.25 mg PO TID PRN; Protocol PRN Reason: Anxiety Stop: 09/26/18 18:01 Last Admin: 09/21/18 17:48 Dose: 0.25 mg Aspirin (Ecotrin) 81 mg PO 0800 [facility]; Protocol Last Admin: 09/25/18 07:45 Dose: 81 mg Atorvastatin Calcium (Lipitor) 80 mg PO DIN [facility]; Protocol Last Admin: 09/24/18 18:21 Dose: 80 mg Benzocaine/Menthol (Cepacol Sore Throat) 1 pedro MT Q2H PRN; Protocol PRN Reason: Sore Throat Collagenase (Santyl) 0 gm TOP DAILY [facility] Last Admin: 09/25/18 09:57 Dose: Not Given Ferrous Sulfate (Feosol) 324 mg PO BID [facility]; Protocol Last Admin: 09/25/18 09:58 Dose: 324 mg Furosemide (Lasix) 40 mg PO DAILY [facility]; Protocol Last Admin: 09/25/18 10:00 Dose: 40 mg Metoprolol Succinate (Toprol Xl) 50 mg PO BRK [facility]; Protocol Last Admin: 09/25/18 07:51 Dose: Not Given Mupirocin (Bactroban Ointment) 0 gm TOP BID [facility] Last Admin: 09/25/18 09:48 Dose: Not Given Pantoprazole Sodium (Protonix Ec Tab) 40 mg PO 0600 [facility]; Protocol Last Admin: 09/25/18 05:21 Dose: 40 mg Polyethylene Glycol (Miralax) 17 gm PO DAILY [facility]; Protocol Last Admin: 09/25/18 10:00 Dose: 17 gm Spironolactone (Aldactone) 25 mg PO DAILY [facility]; Protocol Last Admin: 09/25/18 09:59 Dose: 25 mg Trazodone HCl (Desyrel) 25 mg PO HS PRN; Protocol PRN Reason: Insomnia Warfarin Sodium (Coumadin) 2 mg PO 1800 [facility]; Protocol Last Admin: 09/24/18 18:21 Dose: 2 mg Results - Vital Signs Recent Vital Signs: Last Vital Signs Temp 98.2 F 09/25/18 10:00 Pulse 91 H 09/25/18 10:00 Resp 20 09/25/18 10:00 BP 112/68 09/25/18 10:00 Pulse Ox 100 09/25/18 10:00 - Labs Result Diagrams: 09/25/18 07:00 09/25/18 07:00 Labs: Laboratory Results - last 24 hr 09/25/18 09/25/18 09/25/18 07:00 07:00 07:00 WBC 8.5 D RBC 4.13 Hgb 9.4 L Hct 32.9 L MCV 79.7 L D MCH 22.8 L MCHC 28.6 L RDW 25.7 H Plt Count 123 PT 53.2 H INR 4.71 H* Sodium 131 L Potassium 4.4 Chloride 91 L Carbon Dioxide 31 Anion Gap 13 BUN 40 H Creatinine 1.2 Est GFR ( Amer) 52 Est GFR (Non-Af Amer) 43 Random Glucose 94 Calcium 8.7 Total Bilirubin 1.5 H AST 75 H D ALT 61 H Alkaline Phosphatase 142 H D Total Protein 6.4 Albumin 3.2 Globulin 3.2 Albumin/Globulin Ratio 1.0 L Attending/Attestation - Attestation I have personally seen and examined this patient.: Yes I have fully participated in the care of the patient.: Yes I have reviewed all pertinent clinical information: Yes
[2018-09-22] MEDS ORDERED: metOLazone 5 MG TAB PO ONE (09:30)
[2018-09-22] MEDS: POLYETHYLENE GLYCOL 3350 17 GM/Dose PACKET PO SCH (10:06)
--- NOTE | 2018-09-22 10:52 | PN ---
DATE: 09/21/2018 SUBJECTIVE: The patient was seen lying in bed in the transitional care unit. She is comfortable at the present time. She has had some improvement in her peripheral edema. Her current medications include Aldactone 25 mg daily, warfarin, trazodone, albuterol inhaler, Ecotrin, ferrous sulfate, Lasix 40 mg daily, Lipitor, Protonix, Toprol XL 50 mg daily. PHYSICAL EXAMINATION: GENERAL: She is a very elderly woman who is comfortable at the present time. VITAL SIGNS: Her blood pressure is 100/60 with a pulse of 90, respirations are 14. She is afebrile. HEENT: No JVD. CHEST: Diminished breath sounds at the bases. HEART: PMI displaced laterally with crisp valve sounds heard. ABDOMEN: Soft and nontender with normoactive bowel sounds. EXTREMITIES: 1 to 2+ leg edema with chronic cellulitic changes. DIAGNOSTIC DATA: Morning blood work is pending. IMPRESSION: 1. Recent decompensated congestive heart failure, acute on chronic, predominantly systolic, gradually improved. 2. Atrial fibrillation, status post recent ablation with placement of a biventricular pacing system. 3. Renal insufficiency, chronic. 4. Coronary artery disease, status post prior bypass surgery and percutaneous coronary intervention. 5. Anemia, being treated with iron transfusion. 6. Status post aortic valve replacement with mechanical valve. RECOMMENDATIONS: Current medicines will be continued for now. Additional dose of Zaroxolyn will be administered today. Maintenance of an INR between 2.5 and 3.5 is advisable. Increase activity as tolerated is advised as well. We will follow along as needed. Yaw Joy MD
[2018-09-22] MEDS: Mupirocin 2% Ointment 15 GM TUBE TOP SCH (17:24)
[2018-09-23] MEDS: Albuterol-Ipratrop 3 mg / 0.5 (3 ml) UD IH SCH ×4 (01:49→19:45)
[2018-09-23] MEDS: Pantoprazole 40 mg EC Tab PO SCH (05:35)
[2018-09-23] MEDS: Metoprolol Succinate 50 mg XL Tab PO SCH (08:39)
[2018-09-23 10:23] LABS: CALCIUM 9.1 mg/dL (8.4-10.5)
[2018-09-23] MEDS: POLYETHYLENE GLYCOL 3350 17 GM/Dose PACKET PO SCH (10:30)
[2018-09-23] MEDS: Mupirocin 2% Ointment 15 GM TUBE TOP SCH ×2 (10:36→17:39)
--- NOTE | 2018-09-23 13:46 | CP.PCM.PN ---
Subjective - Date & Time of Evaluation Date of Evaluation: 09/23/18 Time of Evaluation: 13:44 - Subjective Subjective: 87 yo female with past medical history of coronary artery disease with CABG and stents, A. fib on Coumadin, hypertension, osteoarthritis, anxiety, recent pacemaker and ablation placement for her atrial fibrillation seen and evaluated at bedside for left leg wound. Patient admits to mild pain. Denies f/n/v/sob. NAD AAOx3 Objective - Vital Signs/Intake and Output Vital Signs (last 24 hours): Temp Pulse Resp BP Pulse Ox 98.8 F 93 H 20 105/64 100 09/22/18 10:00 09/23/18 08:39 09/22/18 10:00 09/23/18 10:29 09/21/18 16:22 - Medications Medications: Current Medications Albuterol/Ipratropium (Duoneb 3 Mg/0.5 Mg (3 Ml) Ud) 3 ml IH [id number] [facility]; Protocol Last Admin: 09/23/18 07:15 Dose: 3 ml Albuterol/Ipratropium (Duoneb 3 Mg/0.5 Mg (3 Ml) Ud) 3 ml IH Q2H PRN; Protocol PRN Reason: Shortness of Breath Last Admin: 09/20/18 06:20 Dose: 3 ml Alprazolam (Xanax) 0.25 mg PO TID PRN; Protocol PRN Reason: Anxiety Stop: 09/26/18 18:01 Last Admin: 09/21/18 17:48 Dose: 0.25 mg Aspirin (Ecotrin) 81 mg PO 0800 [facility]; Protocol Last Admin: 09/23/18 08:39 Dose: 81 mg Atorvastatin Calcium (Lipitor) 80 mg PO DIN [facility]; Protocol Last Admin: 09/22/18 17:24 Dose: 80 mg Benzocaine/Menthol (Cepacol Sore Throat) 1 pedro MT Q2H PRN; Protocol PRN Reason: Sore Throat Ferrous Sulfate (Feosol) 324 mg PO BID [facility]; Protocol Last Admin: 09/23/18 10:30 Dose: 324 mg Furosemide (Lasix) 40 mg PO DAILY [facility]; Protocol Last Admin: 09/23/18 10:29 Dose: Not Given Metoprolol Succinate (Toprol Xl) 50 mg PO BRK [facility]; Protocol Last Admin: 09/23/18 08:39 Dose: 50 mg Mupirocin (Bactroban Ointment) 0 gm TOP BID [facility] Last Admin: 09/23/18 10:36 Dose: Not Given Pantoprazole Sodium (Protonix Ec Tab) 40 mg PO 0600 [facility]; Protocol Last Admin: 09/23/18 05:35 Dose: 40 mg Polyethylene Glycol (Miralax) 17 gm PO DAILY [facility]; Protocol Last Admin: 09/23/18 10:30 Dose: Not Given Spironolactone (Aldactone) 25 mg PO DAILY [facility]; Protocol Last Admin: 09/23/18 10:27 Dose: Not Given Trazodone HCl (Desyrel) 25 mg PO HS PRN; Protocol PRN Reason: Insomnia Warfarin Sodium (Coumadin) 2 mg PO 1800 [facility]; Protocol Last Admin: 09/22/18 17:25 Dose: 2 mg - Labs Labs: 09/23/18 10:00 PT 30.3 SECONDS (9.4-12.5) H 09/21/18 06:45 INR 2.68 09/21/18 06:45 - Constitutional Appears: Well, Non-toxic, No Acute Distress - Head Exam Head Exam: ATRAUMATIC, NORMOCEPHALIC - Eye Exam Eye Exam: Normal appearance Pupil Exam: NORMAL ACCOMODATION - ENT Exam ENT Exam: Mucous Membranes Moist - Extremities Exam Additional comments: B/L leg exam: Vascular: DP/PT 1/4, CFT <3 secs x 5, TG warm to warm, minimal edema and erythema Derm: superficial tear of the skin on anterior aspect of the leg, 100% granular base, no clinical signs of infection, no other open lesions deep tissue injury to posterior aspect of the right leg , no signs of infection ortho: pain on palpation to the wound NEuro: protective sensation diminished via ipswich 0/4 - Neurological Exam Neurological Exam: Alert, Awake Assessment and Plan - Assessment and Plan (Free Text) Assessment: 87 yo male seen and evaluated for left leg superficial tear of the skin; non infected and right leg deep tissue injury on posterior calf. Plan: Patient seen and evaluated chart, labs and vitals reviewed; afebrile and absent leukocytosis Wcx ordered and pending Left leg cleansed and dressed with optifoam, and mepilex Podiatry will continue to follow No clinical signs of infection, await c/s
[2018-09-24] MEDS: Albuterol-Ipratrop 3 mg / 0.5 (3 ml) UD IH SCH (01:51)
[2018-09-24] MEDS: Pantoprazole 40 mg EC Tab PO SCH (05:15)
[2018-09-24] MEDS: Metoprolol Succinate 50 mg XL Tab PO SCH (07:56)
--- NOTE | 2018-09-24 08:18 | PN ---
DATE: 09/24/2018 SUBJECTIVE: The patient has no complaints of any chest pain. No shortness of breath. No headaches or dizziness. PHYSICAL EXAMINATION: VITAL SIGNS: Temperature is 97.7, pulse of 92, blood pressure is 96/59 and respirations 22. GENERAL: The patient is lying in bed, flat, comfortable. HEENT: No oral lesion. Anicteric sclerae. Moist mucosa. NECK: No JVD, adenopathy, or thyromegaly. CARDIOVASCULAR: S1 and S2, regular. No murmurs, rubs, or gallops. LUNGS: Clear to auscultation bilaterally. No wheeze, rales, or rhonchi. ABDOMEN: Bowel sounds are positive, soft, nontender and nondistended. EXTREMITIES: No cyanosis, clubbing or edema. LABORATORY DATA: Sodium is 131 and creatinine 1.4. ASSESSMENT: 1. Hyperkalemia, improved. 2. Gait dysfunction. 3. Acute kidney injury, improved. 4. Atrial fibrillation, on Coumadin. 5. Coronary artery disease, status post coronary artery bypass grafting. 6. Osteoarthritis. 7. Valve replacement. 8. Anxiety. 9. Hypertension. 10. Iron deficiency anemia. 11. Do not resuscitate. PLAN: The patient is comfortable. She had a left leg superficial tear of the skin, it was not infected. She was getting . She is being followed by Podiatry, followup on wound care. She is on Aldactone. She is going to continue with Coumadin. The patient is going to meet repeat blood work. I will get labs from the a.m. including Coumadin checks. The patient is on scheduled dose of nebulizer, I will discontinue that. She is on iron replacement for deficiency. She is on Lipitor for dyslipidemia. She is on MiraLax for constipation. She is on heart healthy diet. Pt seen and examined by me. I have reviewed the note of the senior medical technologist and I agree with it. I have discussed the assessment and plan with the resident. I have reviewed the medications and the last labs. Jin Cline MD [facility] # [id number] JULIAN
--- NOTE | 2018-09-24 09:35 | CP.PCM.PN ---
<Kishan Bennett - Last Filed: 09/24/18 14:36> Subjective - Date & Time of Evaluation Date of Evaluation: 09/24/18 Time of Evaluation: 07:20 - Subjective Subjective: Kishan Bennett- Internal Medicine Resident- Progress Note on Behalf of Dr. Cline Subjective: Patient seen and examined at bedside. No acute events overnight. States SOB has significantly improved relative to baseline. Offers no new complaints at this time. Denies fever, chills, chest pain, abdominal pain, nausea, vomiting, diarrhea, and urinary symptoms. 12 point ROS negative except as indicated in the HPI Physical Examination: - Constitutional Appears: Non-toxic, No Acute Distress - Head Exam Head Exam: ATRAUMATIC, NORMOCEPHALIC - Eye Exam Eye Exam: EOMI - ENT Exam ENT Exam: Mucous Membranes Moist - Neck Exam Neck exam: Positive for: Full Rom - Respiratory Exam Respiratory Exam: Clear to Auscultation Bilateral, NORMAL BREATHING PATTERN - Cardiovascular Exam Cardiovascular Exam: RRR, +S1, +S2. absent: Systolic Murmur - GI/Abdominal Exam GI & Abdominal Exam: Normal Bowel Sounds, Soft. absent: Distended, Firm, Guarding, Organomegaly, Rebound, Tenderness - Extremities Exam Extremities exam: Positive for: normal inspection. Negative for: calf tenderness, pedal edema - Neurological Exam Neurological exam: Alert, Oriented x3 - Psychiatric Exam Psychiatric exam: Normal Affect, Normal Mood - Skin Skin Exam: Dry, Normal Color, Warm Assessment and Plan: 1. Shortness of breath 2. Hyperkalemia, resolved 3. Acute kidney injury 4. Atrial fibrillation on Coumadin and recent ablation with pacemaker placement 5. Coronary artery disease with CABG and stents 6. Systolic Congestive Heart Failure 6. 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 Osteoarthritis 8. Anxiety 9. Hypertension 10. Supra therapeutic INR, resolved 11. Anemia, iron def 12. Hyponatremia 13. Left leg superficial tear of the skin 14. Right leg deep tissue injury on posterior calf Cont with Duonebs for her shortness of breath. Continue metoprolol and warfarin for treatment of atrial fibrillation. Follow up INR checks to ensure therapeutic range is maintained. Continue aspirin and lipitor for treatment of CAD. Pt is s/p pacemaker placement. Cardiology consulted f/u report from [facility] heart Ins. Echo showed EF of 20-25, severe MR, severe TR and severe hypokinesis of the inferior and anterior lateral and anterior wall segments, dilated RV. For treatment of systolic congestive heart failure continue lasix and spironolactone. For treatment of htn cont home losartan and aldactone. For her anxiety continue with Xanax as needed. Continue to monitor sodium level via morning CMP. In regards to iron defiency anemia the patient is s/p venofer treatment. Podiatry is on board for management of lower extremity wounds. Continue dressings with optifoam and mepilex. Continue with heart healthy diet. Continue physical therapy in the TCU. Anticipated discharge date 09/27/2018. Patient case reviewed with and plan approved by attending physician, Dr. Cline. Objective - Vital Signs/Intake and Output Vital Signs (last 24 hours): Temp Pulse Resp BP Pulse Ox 97.7 F 90 22 106/70 100 09/23/18 16:29 09/24/18 07:56 09/23/18 16:29 09/24/18 07:56 09/23/18 16:29 - Medications Medications: Current Medications Albuterol/Ipratropium (Duoneb 3 Mg/0.5 Mg (3 Ml) Ud) 3 ml IH Q2H PRN; Protocol PRN Reason: Shortness of Breath Last Admin: 09/20/18 06:20 Dose: 3 ml Alprazolam (Xanax) 0.25 mg PO TID PRN; Protocol PRN Reason: Anxiety Stop: 09/26/18 18:01 Last Admin: 09/21/18 17:48 Dose: 0.25 mg Aspirin (Ecotrin) 81 mg PO 0800 [facility]; Protocol Last Admin: 09/24/18 07:55 Dose: 81 mg Atorvastatin Calcium (Lipitor) 80 mg PO DIN [facility]; Protocol Last Admin: 09/23/18 17:43 Dose: 80 mg Benzocaine/Menthol (Cepacol Sore Throat) 1 pedro MT Q2H PRN; Protocol PRN Reason: Sore Throat Ferrous Sulfate (Feosol) 324 mg PO BID [facility]; Protocol Last Admin: 09/23/18 17:43 Dose: 324 mg Furosemide (Lasix) 40 mg PO DAILY [facility]; Protocol Last Admin: 09/23/18 10:29 Dose: Not Given Metoprolol Succinate (Toprol Xl) 50 mg PO BRK [facility]; Protocol Last Admin: 09/24/18 07:56 Dose: 50 mg Mupirocin (Bactroban Ointment) 0 gm TOP BID [facility] Last Admin: 09/23/18 17:39 Dose: 1 applic Pantoprazole Sodium (Protonix Ec Tab) 40 mg PO 0600 [facility]; Protocol Last Admin: 09/24/18 05:15 Dose: 40 mg Polyethylene Glycol (Miralax) 17 gm PO DAILY [facility]; Protocol Last Admin: 09/23/18 10:30 Dose: Not Given Spironolactone (Aldactone) 25 mg PO DAILY [facility]; Protocol Last Admin: 09/23/18 10:27 Dose: Not Given Trazodone HCl (Desyrel) 25 mg PO HS PRN; Protocol PRN Reason: Insomnia Warfarin Sodium (Coumadin) 2 mg PO 1800 [facility]; Protocol Last Admin: 09/23/18 17:42 Dose: 2 mg - Labs Labs: 09/23/18 10:00 PT 30.3 SECONDS (9.4-12.5) H 09/21/18 06:45 INR 2.68 09/21/18 06:45 <Jin Cline S - Last Filed: 09/24/18 15:41> Subjective - Subjective Subjective: Pt seen and examined by me. I have reviewed the note of the medical assistant instructor and I agree with it. I have discussed the assessment and plan with the resident. I have reviewed the medications and the last labs. Objective - Vital Signs/Intake and Output Vital Signs (last 24 hours): Temp Pulse Resp BP Pulse Ox 97.7 F 60 22 105/73 100 09/23/18 16:29 09/24/18 11:25 09/23/18 16:29 09/24/18 10:07 09/24/18 11:25 - Medications Medications: Current Medications Albuterol/Ipratropium (Duoneb 3 Mg/0.5 Mg (3 Ml) Ud) 3 ml IH Q2H PRN; Protocol PRN Reason: Shortness of Breath Last Admin: 09/20/18 06:20 Dose: 3 ml Alprazolam (Xanax) 0.25 mg PO TID PRN; Protocol PRN Reason: Anxiety Stop: 09/26/18 18:01 Last Admin: 09/21/18 17:48 Dose: 0.25 mg Aspirin (Ecotrin) 81 mg PO 0800 [facility]; Protocol Last Admin: 09/24/18 07:55 Dose: 81 mg Atorvastatin Calcium (Lipitor) 80 mg PO DIN [facility]; Protocol Last Admin: 09/23/18 17:43 Dose: 80 mg Benzocaine/Menthol (Cepacol Sore Throat) 1 pedro MT Q2H PRN; Protocol PRN Reason: Sore Throat Collagenase (Santyl) 0 gm TOP DAILY [facility] Ferrous Sulfate (Feosol) 324 mg PO BID [facility]; Protocol Last Admin: 09/24/18 10:07 Dose: 324 mg Furosemide (Lasix) 40 mg PO DAILY [facility]; Protocol Last Admin: 09/24/18 10:07 Dose: 40 mg Metoprolol Succinate (Toprol Xl) 50 mg PO BRK [facility]; Protocol Last Admin: 09/24/18 07:56 Dose: 50 mg Mupirocin (Bactroban Ointment) 0 gm TOP BID [facility] Last Admin: 09/24/18 10:07 Dose: 2 applic Pantoprazole Sodium (Protonix Ec Tab) 40 mg PO 0600 [facility]; Protocol Last Admin: 09/24/18 05:15 Dose: 40 mg Polyethylene Glycol (Miralax) 17 gm PO DAILY [facility]; Protocol Last Admin: 09/24/18 10:06 Dose: 17 gm Spironolactone (Aldactone) 25 mg PO DAILY [facility]; Protocol Last Admin: 09/24/18 10:06 Dose: 25 mg Trazodone HCl (Desyrel) 25 mg PO HS PRN; Protocol PRN Reason: Insomnia Warfarin Sodium (Coumadin) 2 mg PO 1800 [facility]; Protocol Last Admin: 09/23/18 17:42 Dose: 2 mg - Labs Labs: 09/23/18 10:00 PT 30.3 SECONDS (9.4-12.5) H 09/21/18 06:45 INR 2.68 09/21/18 06:45
[2018-09-24] MEDS: POLYETHYLENE GLYCOL 3350 17 GM/Dose PACKET PO SCH (10:06)
[2018-09-24] MEDS: Mupirocin 2% Ointment 15 GM TUBE TOP SCH ×2 (10:07→18:22)
--- NOTE | 2018-09-24 11:24 | CP.PCM.PN ---
Subjective - Date & Time of Evaluation Date of Evaluation: 09/24/18 Time of Evaluation: 11:21 - Subjective Subjective: Podiatry Progress Note: Dr. Amaya Patient seen and evaluated this AM in TCU. Patient resting comfortably and in NAD. She denies any pain to her left leg ulceration at this time. She denies nausea/vomiting/fever/shortness of breath/chest pain. Objective - Vital Signs/Intake and Output Vital Signs (last 24 hours): Temp Pulse Resp BP Pulse Ox 97.7 F 90 22 105/73 100 09/23/18 16:29 09/24/18 07:56 09/23/18 16:29 09/24/18 10:07 09/23/18 16:29 - Medications Medications: Current Medications Albuterol/Ipratropium (Duoneb 3 Mg/0.5 Mg (3 Ml) Ud) 3 ml IH Q2H PRN; Protocol PRN Reason: Shortness of Breath Last Admin: 09/20/18 06:20 Dose: 3 ml Alprazolam (Xanax) 0.25 mg PO TID PRN; Protocol PRN Reason: Anxiety Stop: 09/26/18 18:01 Last Admin: 09/21/18 17:48 Dose: 0.25 mg Aspirin (Ecotrin) 81 mg PO 0800 [facility]; Protocol Last Admin: 09/24/18 07:55 Dose: 81 mg Atorvastatin Calcium (Lipitor) 80 mg PO DIN [facility]; Protocol Last Admin: 09/23/18 17:43 Dose: 80 mg Benzocaine/Menthol (Cepacol Sore Throat) 1 pedro MT Q2H PRN; Protocol PRN Reason: Sore Throat Ferrous Sulfate (Feosol) 324 mg PO BID [facility]; Protocol Last Admin: 09/24/18 10:07 Dose: 324 mg Furosemide (Lasix) 40 mg PO DAILY [facility]; Protocol Last Admin: 09/24/18 10:07 Dose: 40 mg Metoprolol Succinate (Toprol Xl) 50 mg PO BRK [facility]; Protocol Last Admin: 09/24/18 07:56 Dose: 50 mg Mupirocin (Bactroban Ointment) 0 gm TOP BID [facility] Last Admin: 09/24/18 10:07 Dose: 2 applic Pantoprazole Sodium (Protonix Ec Tab) 40 mg PO 0600 [facility]; Protocol Last Admin: 09/24/18 05:15 Dose: 40 mg Polyethylene Glycol (Miralax) 17 gm PO DAILY [facility]; Protocol Last Admin: 09/24/18 10:06 Dose: 17 gm Spironolactone (Aldactone) 25 mg PO DAILY [facility]; Protocol Last Admin: 09/24/18 10:06 Dose: 25 mg Trazodone HCl (Desyrel) 25 mg PO HS PRN; Protocol PRN Reason: Insomnia Warfarin Sodium (Coumadin) 2 mg PO 1800 [facility]; Protocol Last Admin: 09/23/18 17:42 Dose: 2 mg - Labs Labs: 09/23/18 10:00 PT 30.3 SECONDS (9.4-12.5) H 09/21/18 06:45 INR 2.68 09/21/18 06:45 - Constitutional Appears: Non-toxic, No Acute Distress - Head Exam Head Exam: ATRAUMATIC, NORMOCEPHALIC - Extremities Exam Additional comments: B/L leg exam: Vascular: DP/PT 1/4, CFT <3 secs x 5, TG warm to warm, minimal edema and erythema Derm: superficial ulceration appreciated on anterior aspect of the leg, mixed granular/fibrotic base, no clinical signs of infection, no other open lesions deep tissue injury to posterior aspect of the right leg , no signs of infection Ortho: pain on palpation to the wound, no pain with calf compression Neuro: Gross sensation intact, protective sensation diminished - Neurological Exam Neurological Exam: Alert, Awake, Oriented x3 - Psychiatric Exam Psychiatric exam: Normal Affect, Normal Mood Assessment and Plan - Assessment and Plan (Free Text) Assessment: 87 year old female seen and evaluated for left leg superficial ulceration Plan: Patient seen and evaluated at bedside with attending Dr. Amaya chart, labs and vitals reviewed; afebrile Wound culture ordered; gram + cocci Local wound care: Mepilex, santyl ordered for daily dressing changes Podiatry will continue to follow
--- NOTE | 2018-09-24 12:15 | PN ---
DATE: 09/24/2018 SUBJECTIVE: The patient is seen sitting in chair on the TCU. She is comfortable at present time. She continues to have some leg edema. CURRENT MEDICATIONS: Include Aldactone 25 mg daily which she refuses yesterday; warfarin; trazodone; DuoNeb inhaler; Ecotrin; ferrous sulfate; Lasix 40 mg daily, this was also refused yesterday; Lipitor; Protonix; Toprol XL 50 mg daily and Xanax. OBJECTIVE: GENERAL: She is a very elderly woman who appears comfortable at rest. VITAL SIGNS: Blood pressure is 106/70 with pulse of 90, respirations are 16. She is afebrile. HEENT: No JVD. CHEST: Diminished breath sounds at bases. HEART: PMI displaced laterally with crisp valve sounds. ABDOMEN: Soft, nontender with normoactive bowel sounds. EXTREMITIES: 1-2+ leg edema with chronic cellulitic changes. DIAGNOSTIC DATA: No blood work pending this morning. IMPRESSION: 1. Recent decompensated congestive heart failure, [id number], probably systolic, slow to improve. 2. Atrial fibrillation status post recent ablation procedure with placement of a biventricular pacing system. 3. Chronic renal insufficiency. 4. Coronary artery disease status post prior bypass surgery and multivessel percutaneous coronary intervention. 5. Anemia receiving iron transfusion. 6. Status post mechanical aortic valve replacement with a [employer] valve. RECOMMENDATIONS: Her current medications will continue for now. Maintenance of an INR between 2.5 and 3.5 is advisable. Sodium and fluid restriction as well as continue diuretic use is advised. Leg elevation when seated is recommended. Compression stocking may be helpful. Conservative cardiac management is planned. I will follow along as needed. Yaw Joy MD
[2018-09-24 15:55] VITALS: RESP 20
[2018-09-25] MEDS: Pantoprazole 40 mg EC Tab PO SCH (05:21)
[2018-09-25 07:31] LABS: HEMOGLOBIN 9.4 g/dL (12.0-16.0); MEAN CELL VOLUME 79.7 fl (80.0-105.0); MEAN CORPUSCULAR HEMOGLOBIN 22.8 pg (25.0-35.0); MEAN CORPUSCULAR HGB CONC 28.6 g/dl (31.0-37.0); PLATELET COUNT 123 10^3/uL (120.0-450.0); RBC 4.13 10^6/uL (3.5-6.1); RED CELL DISTRIBUTION WIDTH 25.7 % (11.5-14.5); WHITE BLOOD COUNT 8.5 10^3/uL (4.5-11.0)
[2018-09-25] MEDS: Metoprolol Succinate 50 mg XL Tab PO SCH ×2 (07:45→07:51)
[2018-09-25 07:50] LABS: PROTHROMBIN TIME 53.2 SECONDS (9.4-12.5)
[2018-09-25 07:54] LABS: INR 4.71
[2018-09-25 08:08] LABS: ALBUMIN 3.2 g/dL (3.0-4.8); CALCIUM 8.7 mg/dL (8.4-10.5)
[2018-09-25] MEDS: Mupirocin 2% Ointment 15 GM TUBE TOP SCH ×2 (09:48→17:51)
[2018-09-25] MEDS: Collagenase 250 Units/gm Ointment(30 gm) TOP SCH (09:57)
--- NOTE | 2018-09-25 09:58 | CP.PCM.PN ---
<DonaldKishan - Last Filed: 09/25/18 09:52> Subjective - Date & Time of Evaluation Date of Evaluation: 09/25/18 Time of Evaluation: 07:20 - Subjective Subjective: Kishan Bennett- Internal Medicine Resident- Progress Note on Behalf of Dr. Cline Subjective: Patient seen and examined at bedside. States that she experienced urinary incontinence overnight. Denies fever, chills, chest pain, abdominal pain, nausea, vomiting, and diarrhea. 12 point ROS negative except as indicated in the HPI Physical Examination: - Constitutional Appears: Non-toxic, No Acute Distress - Head Exam Head Exam: ATRAUMATIC, NORMOCEPHALIC - Eye Exam Eye Exam: EOMI - ENT Exam ENT Exam: Mucous Membranes Moist - Neck Exam Neck exam: Positive for: Full Rom - Respiratory Exam Respiratory Exam: Clear to Auscultation Bilateral, NORMAL BREATHING PATTERN - Cardiovascular Exam Cardiovascular Exam: RRR, +S1, +S2. absent: Systolic Murmur - GI/Abdominal Exam GI & Abdominal Exam: Normal Bowel Sounds, Soft. absent: Distended, Firm, Guarding, Organomegaly, Rebound, Tenderness - Extremities Exam Extremities exam: Positive for: normal inspection. Negative for: calf tenderness, pedal edema - Neurological Exam Neurological exam: Alert, Oriented x3 - Psychiatric Exam Psychiatric exam: Normal Affect, Normal Mood - Skin Skin Exam: Dry, Normal Color, Warm Assessment and Plan: Hyponatremia Elevated LFTs Supra therapeutic INR Shortness of breath Acute kidney injury Atrial fibrillation on Coumadin and recent ablation with pacemaker placement Coronary artery disease with CABG and stents Systolic Congestive Heart Failure Heart valve replacement, likely prosthetic Osteoarthritis Hypertension Anemia, iron def Left leg superficial tear of the skin Right leg deep tissue injury on posterior calf Cont with Duonebs for her shortness of breath. Continue metoprolol for treatment of atrial fibrillation. Hold todays dose of warfarin due to elevated INR. Continue aspirin and lipitor for treatment of CAD. Pt is s/p pacemaker placement. Cardiology consulted f/u report from [facility] heart Ins. Echo showed EF of 20-25, severe MR, severe TR and severe hypokinesis of the inferior and anterior lateral and anterior wall segments, dilated RV. For treatment of systolic congestive heart failure continue lasix and spironolactone. For treatment of htn cont home losartan and aldactone. For her anxiety continue with Xanax as needed. Continue to monitor sodium level via morning CMP. In regards to iron defiency anemia the patient is s/p venofer treatment. Podiatry is on board for management of lower extremity wounds. Continue dressings with optifoam and mepilex. Continue with heart healthy diet. Continue physical therapy in the TCU. Anticipated discharge date 09/27/2018. Patient case reviewed with and plan approved by attending physician, Dr. Cline. Objective - Vital Signs/Intake and Output Vital Signs (last 24 hours): Temp Pulse Resp BP Pulse Ox 97.1 F L 85 20 101/60 100 09/24/18 10:00 09/25/18 07:51 09/24/18 10:00 09/25/18 07:51 09/24/18 11:25 - Medications Medications: Current Medications Albuterol/Ipratropium (Duoneb 3 Mg/0.5 Mg (3 Ml) Ud) 3 ml IH Q2H PRN; Protocol PRN Reason: Shortness of Breath Last Admin: 09/20/18 06:20 Dose: 3 ml Alprazolam (Xanax) 0.25 mg PO TID PRN; Protocol PRN Reason: Anxiety Stop: 09/26/18 18:01 Last Admin: 09/21/18 17:48 Dose: 0.25 mg Aspirin (Ecotrin) 81 mg PO 0800 [facility]; Protocol Last Admin: 09/25/18 07:45 Dose: 81 mg Atorvastatin Calcium (Lipitor) 80 mg PO DIN [facility]; Protocol Last Admin: 09/24/18 18:21 Dose: 80 mg Benzocaine/Menthol (Cepacol Sore Throat) 1 pedro MT Q2H PRN; Protocol PRN Reason: Sore Throat Collagenase (Santyl) 0 gm TOP DAILY [facility] Ferrous Sulfate (Feosol) 324 mg PO BID [facility]; Protocol Last Admin: 09/24/18 18:22 Dose: 324 mg Furosemide (Lasix) 40 mg PO DAILY [facility]; Protocol Last Admin: 09/24/18 10:07 Dose: 40 mg Metoprolol Succinate (Toprol Xl) 50 mg PO BRK [facility]; Protocol Last Admin: 09/25/18 07:51 Dose: Not Given Mupirocin (Bactroban Ointment) 0 gm TOP BID [facility] Last Admin: 09/25/18 09:48 Dose: Not Given Pantoprazole Sodium (Protonix Ec Tab) 40 mg PO 0600 [facility]; Protocol Last Admin: 09/25/18 05:21 Dose: 40 mg Polyethylene Glycol (Miralax) 17 gm PO DAILY [facility]; Protocol Last Admin: 09/24/18 10:06 Dose: 17 gm Spironolactone (Aldactone) 25 mg PO DAILY [facility]; Protocol Last Admin: 09/24/18 10:06 Dose: 25 mg Trazodone HCl (Desyrel) 25 mg PO HS PRN; Protocol PRN Reason: Insomnia Warfarin Sodium (Coumadin) 2 mg PO 1800 [facility]; Protocol Last Admin: 09/24/18 18:21 Dose: 2 mg - Labs Labs: 09/25/18 07:00 09/25/18 07:00 PT 53.2 SECONDS (9.4-12.5) H 09/25/18 07:00 INR 4.71 H* 09/25/18 07:00 <Jin Cline - Last Filed: 09/25/18 18:01> Subjective - Subjective Subjective: Pt seen and examined by me. I have reviewed the note of the medical insurance claims processor and I agree with it. I have discussed the assessment and plan with the resident. I have reviewed the medications and the last labs. Objective - Vital Signs/Intake and Output Vital Signs (last 24 hours): Temp Pulse Resp BP Pulse Ox 98 F 93 H 20 98/65 L 100 09/25/18 16:00 09/25/18 16:00 09/25/18 16:00 09/25/18 16:00 09/25/18 16:00 - Medications Medications: Current Medications Albuterol/Ipratropium (Duoneb 3 Mg/0.5 Mg (3 Ml) Ud) 3 ml IH Q2H PRN; Protocol PRN Reason: Shortness of Breath Last Admin: 09/20/18 06:20 Dose: 3 ml Alprazolam (Xanax) 0.25 mg PO TID PRN; Protocol PRN Reason: Anxiety Stop: 09/26/18 18:01 Last Admin: 09/21/18 17:48 Dose: 0.25 mg Aspirin (Ecotrin) 81 mg PO 0800 [facility]; Protocol Last Admin: 09/25/18 07:45 Dose: 81 mg Atorvastatin Calcium (Lipitor) 80 mg PO DIN [facility]; Protocol Last Admin: 09/25/18 17:51 Dose: 80 mg Benzocaine/Menthol (Cepacol Sore Throat) 1 pedro MT Q2H PRN; Protocol PRN Reason: Sore Throat Collagenase (Santyl) 0 gm TOP DAILY [facility] Last Admin: 09/25/18 09:57 Dose: Not Given Ferrous Sulfate (Feosol) 324 mg PO BID [facility]; Protocol Last Admin: 09/25/18 17:51 Dose: 324 mg Furosemide (Lasix) 40 mg PO DAILY [facility]; Protocol Last Admin: 09/25/18 10:00 Dose: 40 mg Metoprolol Succinate (Toprol Xl) 50 mg PO BRK [facility]; Protocol Last Admin: 09/25/18 07:51 Dose: Not Given Mupirocin (Bactroban Ointment) 0 gm TOP BID [facility] Last Admin: 09/25/18 17:51 Dose: Not Given Pantoprazole Sodium (Protonix Ec Tab) 40 mg PO 0600 [facility]; Protocol Last Admin: 09/25/18 05:21 Dose: 40 mg Polyethylene Glycol (Miralax) 17 gm PO DAILY [facility]; Protocol Last Admin: 09/25/18 10:00 Dose: 17 gm Spironolactone (Aldactone) 25 mg PO DAILY [facility]; Protocol Last Admin: 09/25/18 09:59 Dose: 25 mg Trazodone HCl (Desyrel) 25 mg PO HS PRN; Protocol PRN Reason: Insomnia Warfarin Sodium (Coumadin) 2 mg PO 1800 [facility]; Protocol Last Admin: 09/24/18 18:21 Dose: 2 mg - Labs Labs: 09/25/18 07:00 09/25/18 07:00 PT 53.2 SECONDS (9.4-12.5) H 09/25/18 07:00 INR 4.71 H* 09/25/18 07:00
[2018-09-25] MEDS: POLYETHYLENE GLYCOL 3350 17 GM/Dose PACKET PO SCH (10:00)
--- NOTE | 2018-09-25 13:01 | CP.PCM.PN ---
Subjective - Date & Time of Evaluation Date of Evaluation: 09/25/18 Time of Evaluation: 12:59 - Subjective Subjective: Podiatry Progress Note: Dr. Amaya Patient seen and evaluated this AM in TCU with attending Dr. Amaya. Patient resting comfortably and in NAD. Denies any pain to the ulceration site. Denies nausea/vomiting/fever/shortness of breath/chest pain. Objective - Vital Signs/Intake and Output Vital Signs (last 24 hours): Temp Pulse Resp BP Pulse Ox 98.2 F 91 H 20 112/68 100 09/25/18 10:00 09/25/18 10:00 09/25/18 10:00 09/25/18 10:00 09/25/18 10:00 - Medications Medications: Current Medications Albuterol/Ipratropium (Duoneb 3 Mg/0.5 Mg (3 Ml) Ud) 3 ml IH Q2H PRN; Protocol PRN Reason: Shortness of Breath Last Admin: 09/20/18 06:20 Dose: 3 ml Alprazolam (Xanax) 0.25 mg PO TID PRN; Protocol PRN Reason: Anxiety Stop: 09/26/18 18:01 Last Admin: 09/21/18 17:48 Dose: 0.25 mg Aspirin (Ecotrin) 81 mg PO 0800 [facility]; Protocol Last Admin: 09/25/18 07:45 Dose: 81 mg Atorvastatin Calcium (Lipitor) 80 mg PO DIN [facility]; Protocol Last Admin: 09/24/18 18:21 Dose: 80 mg Benzocaine/Menthol (Cepacol Sore Throat) 1 pedro MT Q2H PRN; Protocol PRN Reason: Sore Throat Collagenase (Santyl) 0 gm TOP DAILY [facility] Last Admin: 09/25/18 09:57 Dose: Not Given Ferrous Sulfate (Feosol) 324 mg PO BID [facility]; Protocol Last Admin: 09/25/18 09:58 Dose: 324 mg Furosemide (Lasix) 40 mg PO DAILY [facility]; Protocol Last Admin: 09/25/18 10:00 Dose: 40 mg Metoprolol Succinate (Toprol Xl) 50 mg PO BRK [facility]; Protocol Last Admin: 09/25/18 07:51 Dose: Not Given Mupirocin (Bactroban Ointment) 0 gm TOP BID [facility] Last Admin: 09/25/18 09:48 Dose: Not Given Pantoprazole Sodium (Protonix Ec Tab) 40 mg PO 0600 [facility]; Protocol Last Admin: 09/25/18 05:21 Dose: 40 mg Polyethylene Glycol (Miralax) 17 gm PO DAILY [facility]; Protocol Last Admin: 09/25/18 10:00 Dose: 17 gm Spironolactone (Aldactone) 25 mg PO DAILY [facility]; Protocol Last Admin: 09/25/18 09:59 Dose: 25 mg Trazodone HCl (Desyrel) 25 mg PO HS PRN; Protocol PRN Reason: Insomnia Warfarin Sodium (Coumadin) 2 mg PO 1800 [facility]; Protocol Last Admin: 09/24/18 18:21 Dose: 2 mg - Labs Labs: 09/25/18 07:00 09/25/18 07:00 PT 53.2 SECONDS (9.4-12.5) H 09/25/18 07:00 INR 4.71 H* 09/25/18 07:00 - Constitutional Appears: Non-toxic, No Acute Distress - Head Exam Head Exam: ATRAUMATIC, NORMOCEPHALIC - Extremities Exam Additional comments: B/L leg exam: Vascular: DP/PT 1/4, CFT <3 secs x 5, TG warm to warm, minimal edema and erythema Derm: superficial ulceration appreciated on anterior aspect of the leg, mixed granular/fibrotic base, no clinical signs of infection, no other open lesions deep tissue injury to posterior aspect of the right leg , no signs of infection Ortho: pain on palpation to the wound, no pain with calf compression Neuro: Gross sensation intact, protective sensation diminished - Neurological Exam Neurological Exam: Alert, Awake, Oriented x3 - Psychiatric Exam Psychiatric exam: Normal Affect, Normal Mood - Skin Skin Exam: Warm Assessment and Plan - Assessment and Plan (Free Text) Assessment: 87 year old female seen and evaluated for left leg superficial ulceration Plan: Patient seen and evaluated at bedside with attending Dr. Amaya chart, labs and vitals reviewed; afebrile, VSS Wound culture ordered; staph aureus Local wound care: Mepilex, santyl Stable from podiatry standpoint Upon d/c patient to follow with Dr. Amaya/Ortega in office or wound care center Podiatry will continue to follow
--- NOTE | 2018-09-25 20:34 | PN ---
DATE: 09/25/2018 SUBJECTIVE: Patient was seen and examined. I do agree with the note of the medical researcher. I was involved in the plan of care. The patient has hyponatremia, it is mild. She has acute kidney injury that has resolved. She has coronary artery disease with stent. The patient has osteoarthritis. Her pain is controlled. She has hypertension. She is getting physical therapy. She says that she is feeling stronger. She is on Aldactone, this will be continued. She is on her Coumadin. Her INR is elevated, so her Coumadin has been placed on hold. She is on nebulizer treatments as needed. She is receiving Lasix daily. She is on Lipitor for dyslipidemia. She is on Xanax for anxiety. Jin Cline MD
[2018-09-26] MEDS: Pantoprazole 40 mg EC Tab PO SCH (06:05)
[2018-09-26 07:14] LABS: BASO # 0.01 K/mm3 (0.0-2.0); BASO % 0.1 % (0.0-3.0); EOS # 0.1 (0.0-0.7); EOS % 1.9 % (1.5-5.0); HEMOGLOBIN 9.5 g/dL (12.0-16.0); LYMPH # 0.5 (1.2-3.4); LYMPH % 7.5 % (22.0-35.0); MEAN CELL VOLUME 79.4 fl (80.0-105.0); MONO # 0.8 (0.1-0.6); MONO % 11.5 % (1.0-6.0); PLATELET COUNT 120 10^3/uL (120.0-450.0); RBC 4.13 10^6/uL (3.5-6.1); RED CELL DISTRIBUTION WIDTH 26.1 % (11.5-14.5)
[2018-09-26] MEDS: Metoprolol Succinate 50 mg XL Tab PO SCH (07:41)
[2018-09-26 07:45] LABS: PROTHROMBIN TIME 42.6 SECONDS (9.4-12.5)
[2018-09-26 07:49] LABS: INR 3.77
[2018-09-26 08:04] LABS: ALBUMIN 3.3 g/dL (3.0-4.8); CALCIUM 8.7 mg/dL (8.4-10.5)
--- NOTE | 2018-09-26 10:33 | PN ---
DATE: 09/26/2018 SUBJECTIVE: The patient is seen lying in bed on the Transitional Care Unit. She is comfortable at the present time. She denies any chest pain or dyspnea. Her peripheral edema is slowly improving. Current medications include Aldactone 25 mg daily, warfarin, trazodone, DuoNeb inhaler, Ecotrin, ferrous sulfate, Lasix 40 mg daily, Lipitor, Protonix, Toprol XL 50 mg daily. PHYSICAL EXAMINATION: GENERAL: She is a very elderly woman who is comfortable at rest. VITAL SIGNS: Her blood pressure is 102/60 with pulse of 90, respirations of 14. She is afebrile. HEENT: No JVD. CHEST: Few scattered rhonchi heard with diminished breath sounds at the bases. HEART: PMI displaced laterally. Woodson valve sounds noted. ABDOMEN: Soft, nontender with normoactive bowel sounds. EXTREMITIES: 1+ leg edema. DIAGNOSTIC DATA: Sodium is 130, potassium 3.6, BUN and creatinine 37 and 1.3. White count 7, hemoglobin and hematocrit 9.5 and 32.8 with platelet count 120,000. INR is 3.77. IMPRESSION: 1. Recent decompensated congestive heart failure, [id number], predominantly systolic, slowly improving. 2. History of atrial fibrillation status post recent ablation procedure with biventricular pacing system placement. 3. Coronary artery disease status post prior bypass surgery, multivessel percutaneous coronary intervention. 4. Status post mechanical aortic valve replacement. 5. Anemia and thrombocytopenia, slowly improving, now she has chronic renal insufficiency. RECOMMENDATIONS Current medications, we will continue for now. Maintenance of an INR between 2.5 and 3.5 is advisable. Continued diuresis is advised. Increase exercise as able as recommended. I will continue to follow and make further recommendations as appropriate. aYw Joy MD
[2018-09-26] MEDS: Mupirocin 2% Ointment 15 GM TUBE TOP SCH ×2 (10:39→17:59)
[2018-09-26] MEDS: POLYETHYLENE GLYCOL 3350 17 GM/Dose PACKET PO SCH (10:40)
[2018-09-26] MEDS: Collagenase 250 Units/gm Ointment(30 gm) TOP SCH (10:41)
[2018-09-26] MEDS: Albuterol-Ipratrop 3 mg / 0.5 (3 ml) UD IH PRN (12:52)
--- NOTE | 2018-09-26 13:05 | CP.PCM.PN ---
<DonaldKishan - Last Filed: 09/26/18 12:59> Subjective - Date & Time of Evaluation Date of Evaluation: 09/26/18 Time of Evaluation: 07:50 - Subjective Subjective: Kishan Bennett- Internal Medicine Resident- Progress Note on Behalf of Dr. Cline Subjective: Patient seen and examined at bedside. States overnight urinary incontinence has resolved. Denies fever, chills, chest pain, abdominal pain, nausea, vomiting, and diarrhea. 12 point ROS negative except as indicated in the HPI Physical Examination: - Constitutional Appears: Non-toxic, No Acute Distress - Head Exam Head Exam: ATRAUMATIC, NORMOCEPHALIC - Eye Exam Eye Exam: EOMI - ENT Exam ENT Exam: Mucous Membranes Moist - Neck Exam Neck exam: Positive for: Full Rom - Respiratory Exam Respiratory Exam: Clear to Auscultation Bilateral, NORMAL BREATHING PATTERN - Cardiovascular Exam Cardiovascular Exam: RRR, +S1, +S2. absent: Systolic Murmur - GI/Abdominal Exam GI & Abdominal Exam: Normal Bowel Sounds, Soft. absent: Distended, Firm, Guarding, Organomegaly, Rebound, Tenderness - Extremities Exam Extremities exam: Positive for: normal inspection. Negative for: calf tenderne ss, pedal edema - Neurological Exam Neurological exam: Alert, Oriented x3 - Psychiatric Exam Psychiatric exam: Normal Affect, Normal Mood - Skin Skin Exam: Dry, Normal Color, Warm Assessment and Plan: Hyponatremia- stable 130 Supra therapeutic INR- improving Atrial fibrillation on Coumadin- on hold due to elevated INR Coronary artery disease Chronic Systolic Congestive Heart Failure Osteoarthritis Hypertension Iron deficiency anemia- hemoglobin stable 9.5 Left leg superficial tear of the skin Right leg deep tissue injury on posterior calf Continue with Duonebs prn for shortness of breath. Continue metoprolol for treatment of atrial fibrillation. Continue to hold dose of warfarin due to elevated INR. Continue aspirin and lipitor for treatment of CAD. For treatment of chronic systolic congestive heart failure continue lasix and spironolactone. For treatment of htn cont home losartan and aldactone. For her anxiety continue with Xanax as needed. Continue to monitor sodium level via morning CMP. In regards to iron defiency anemia the patient is s/p venofer treatment. Podiatry is on board for management of lower extremity wounds. Continue dressings with santyl and mepilex. Continue with heart healthy diet. Continue physical therapy in the TCU. Anticipated discharge date 09/27/2018. Patient case reviewed with and plan approved by attending physician, Dr. Cline. Objective - Vital Signs/Intake and Output Vital Signs (last 24 hours): Temp Pulse Resp BP Pulse Ox 98 F 95 H 20 90/61 L 100 09/25/18 16:00 09/26/18 07:41 09/25/18 16:00 09/26/18 10:40 09/25/18 16:00 - Medications Medications: Current Medications Albuterol/Ipratropium (Duoneb 3 Mg/0.5 Mg (3 Ml) Ud) 3 ml IH Q2H PRN; Protocol PRN Reason: Shortness of Breath Last Admin: 09/26/18 12:52 Dose: 3 ml Alprazolam (Xanax) 0.25 mg PO TID PRN; Protocol PRN Reason: Anxiety Stop: 09/26/18 18:01 Last Admin: 09/21/18 17:48 Dose: 0.25 mg Aspirin (Ecotrin) 81 mg PO 0800 [facility]; Protocol Last Admin: 09/26/18 07:40 Dose: 81 mg Atorvastatin Calcium (Lipitor) 80 mg PO DIN [facility]; Protocol Last Admin: 09/25/18 17:51 Dose: 80 mg Benzocaine/Menthol (Cepacol Sore Throat) 1 pedro MT Q2H PRN; Protocol PRN Reason: Sore Throat Collagenase (Santyl) 0 gm TOP DAILY [facility] Last Admin: 09/26/18 10:41 Dose: Not Given Ferrous Sulfate (Feosol) 324 mg PO BID [facility]; Protocol Last Admin: 09/26/18 10:39 Dose: 324 mg Furosemide (Lasix) 40 mg PO DAILY [facility]; Protocol Last Admin: 09/26/18 10:40 Dose: Not Given Metoprolol Succinate (Toprol Xl) 50 mg PO BRK [facility]; Protocol Last Admin: 09/26/18 07:41 Dose: 50 mg Mupirocin (Bactroban Ointment) 0 gm TOP BID [facility] Last Admin: 09/26/18 10:39 Dose: Not Given Pantoprazole Sodium (Protonix Ec Tab) 40 mg PO 0600 [facility]; Protocol Last Admin: 09/26/18 06:05 Dose: 40 mg Polyethylene Glycol (Miralax) 17 gm PO DAILY [facility]; Protocol Last Admin: 09/26/18 10:40 Dose: Not Given Spironolactone (Aldactone) 25 mg PO DAILY [facility]; Protocol Last Admin: 09/26/18 10:39 Dose: 25 mg Trazodone HCl (Desyrel) 25 mg PO HS PRN; Protocol PRN Reason: Insomnia Warfarin Sodium (Coumadin) 2 mg PO 1800 [facility]; Protocol Last Admin: 09/24/18 18:21 Dose: 2 mg - Labs Labs: 09/26/18 07:00 09/26/18 07:00 PT 42.6 SECONDS (9.4-12.5) H 09/26/18 07:00 INR 3.77 H* 09/26/18 07:00 <Jin Cline - Last Filed: 09/26/18 21:35> Subjective - Subjective Subjective: Pt seen and examined by me. I have reviewed the note of the medical representative and I agree with it. I have discussed the assessment and plan with the resident. I have reviewed the medications and the last labs. Objective - Vital Signs/Intake and Output Vital Signs (last 24 hours): Temp Pulse Resp BP Pulse Ox 97.9 F 95 H 20 108/70 99 09/26/18 16:00 09/26/18 16:00 09/26/18 16:00 09/26/18 16:00 09/26/18 16:00 Intake and Output: 09/26/18 09/27/18 18:59 06:59 Intake Total 300 Balance 300 - Medications Medications: Current Medications Albuterol/Ipratropium (Duoneb 3 Mg/0.5 Mg (3 Ml) Ud) 3 ml IH Q2H PRN; Protocol PRN Reason: Shortness of Breath Last Admin: 09/26/18 12:52 Dose: 3 ml Alprazolam (Xanax) 0.25 mg PO TID PRN; Protocol PRN Reason: Anxiety Stop: 10/04/18 10:01 Last Admin: 09/26/18 20:52 Dose: 0.25 mg Aspirin (Ecotrin) 81 mg PO 0800 [facility]; Protocol Last Admin: 09/26/18 07:40 Dose: 81 mg Atorvastatin Calcium (Lipitor) 80 mg PO DIN [facility]; Protocol Last Admin: 09/26/18 18:00 Dose: 80 mg Benzocaine/Menthol (Cepacol Sore Throat) 1 pedro MT Q2H PRN; Protocol PRN Reason: Sore Throat Collagenase (Santyl) 0 gm TOP DAILY [facility] Last Admin: 09/26/18 10:41 Dose: Not Given Ferrous Sulfate (Feosol) 324 mg PO BID [facility]; Protocol Last Admin: 09/26/18 18:00 Dose: 324 mg Furosemide (Lasix) 40 mg PO DAILY [facility]; Protocol Last Admin: 09/26/18 10:40 Dose: Not Given Metoprolol Succinate (Toprol Xl) 50 mg PO BRK [facility]; Protocol Last Admin: 09/26/18 07:41 Dose: 50 mg Mupirocin (Bactroban Ointment) 0 gm TOP BID [facility] Last Admin: 09/26/18 17:59 Dose: Not Given Pantoprazole Sodium (Protonix Ec Tab) 40 mg PO 0600 [facility]; Protocol Last Admin: 09/26/18 06:05 Dose: 40 mg Polyethylene Glycol (Miralax) 17 gm PO DAILY [facility]; Protocol Last Admin: 09/26/18 10:40 Dose: Not Given Spironolactone (Aldactone) 25 mg PO DAILY [facility]; Protocol Last Admin: 09/26/18 10:39 Dose: 25 mg Trazodone HCl (Desyrel) 25 mg PO HS PRN; Protocol PRN Reason: Insomnia Warfarin Sodium (Coumadin) 2 mg PO 1800 [facility]; Protocol Last Admin: 09/24/18 18:21 Dose: 2 mg - Labs Labs: 09/26/18 07:00 09/26/18 07:00 PT 42.6 SECONDS (9.4-12.5) H 09/26/18 07:00 INR 3.77 H* 09/26/18 07:00
--- NOTE | 2018-09-26 16:54 | CP.PCM.PN ---
<Teresa López - Last Filed: 09/26/18 16:55> Subjective - Date & Time of Evaluation Date of Evaluation: 09/26/18 Time of Evaluation: 16:51 - Subjective Subjective: Podiatry Progress Note: Dr. Vivas Patient seen and evaluated today in TCU for b/l superficial leg ulcerations; stable. Patient resting comfortably in bedside chair and in NAD. Denies nausea/vomiting/fever/shortness of breath/chest pain. Objective - Vital Signs/Intake and Output Vital Signs (last 24 hours): Temp Pulse Resp BP Pulse Ox 98 F 91 H 20 90/61 L 100 09/25/18 16:00 09/26/18 13:07 09/25/18 16:00 09/26/18 10:40 09/26/18 13:07 - Medications Medications: Current Medications Albuterol/Ipratropium (Duoneb 3 Mg/0.5 Mg (3 Ml) Ud) 3 ml IH Q2H PRN; Protocol PRN Reason: Shortness of Breath Last Admin: 09/26/18 12:52 Dose: 3 ml Alprazolam (Xanax) 0.25 mg PO TID PRN; Protocol PRN Reason: Anxiety Stop: 09/26/18 18:01 Last Admin: 09/21/18 17:48 Dose: 0.25 mg Aspirin (Ecotrin) 81 mg PO 0800 [facility]; Protocol Last Admin: 09/26/18 07:40 Dose: 81 mg Atorvastatin Calcium (Lipitor) 80 mg PO DIN [facility]; Protocol Last Admin: 09/25/18 17:51 Dose: 80 mg Benzocaine/Menthol (Cepacol Sore Throat) 1 pedro MT Q2H PRN; Protocol PRN Reason: Sore Throat Collagenase (Santyl) 0 gm TOP DAILY [facility] Last Admin: 09/26/18 10:41 Dose: Not Given Ferrous Sulfate (Feosol) 324 mg PO BID [facility]; Protocol Last Admin: 09/26/18 10:39 Dose: 324 mg Furosemide (Lasix) 40 mg PO DAILY [facility]; Protocol Last Admin: 09/26/18 10:40 Dose: Not Given Metoprolol Succinate (Toprol Xl) 50 mg PO BRK [facility]; Protocol Last Admin: 09/26/18 07:41 Dose: 50 mg Mupirocin (Bactroban Ointment) 0 gm TOP BID [facility] Last Admin: 09/26/18 10:39 Dose: Not Given Pantoprazole Sodium (Protonix Ec Tab) 40 mg PO 0600 [facility]; Protocol Last Admin: 09/26/18 06:05 Dose: 40 mg Polyethylene Glycol (Miralax) 17 gm PO DAILY [facility]; Protocol Last Admin: 09/26/18 10:40 Dose: Not Given Spironolactone (Aldactone) 25 mg PO DAILY [facility]; Protocol Last Admin: 09/26/18 10:39 Dose: 25 mg Trazodone HCl (Desyrel) 25 mg PO HS PRN; Protocol PRN Reason: Insomnia Warfarin Sodium (Coumadin) 2 mg PO 1800 [facility]; Protocol Last Admin: 09/24/18 18:21 Dose: 2 mg - Labs Labs: 09/26/18 07:00 09/26/18 07:00 PT 42.6 SECONDS (9.4-12.5) H 09/26/18 07:00 INR 3.77 H* 09/26/18 07:00 - Constitutional Appears: Non-toxic, No Acute Distress - Head Exam Head Exam: ATRAUMATIC, NORMOCEPHALIC - Extremities Exam Additional comments: B/L leg exam: Vascular: DP/PT 1/4, CFT <3 secs x 5, TG warm to warm, minimal edema and erythema Derm: LLE: superficial ulceration appreciated on anterior aspect of the left leg, mixed granular/fibrotic base, no clinical signs of infection, no other open lesions deep tissue injury to posterior aspect of the right leg , no signs of infection RLE: Superficial ulceration appreciated to anterior medial aspect of right leg. Mixed granular/fibrotic base, mild drainage, no purulence, no clinical signs of infection Ortho: pain upon palpation of wounds, no pain with calf compression Neuro: Gross sensation intact, protective sensation diminished - Psychiatric Exam Psychiatric exam: Normal Affect, Normal Mood Assessment and Plan - Assessment and Plan (Free Text) Assessment: 87 year old female seen and evaluated for left leg superficial ulceration Patient seen and evaluated at bedside with attending Dr. Amaya chart, labs and vitals reviewed; afebrile, VSS Wound culture ordered; staph aureus Local wound care: Mepilex, santyl Stable from podiatry standpoint Upon d/c patient to follow with Dr. Amaya/Ortega in office or wound care center Podiatry will continue to follow Plan: Patient seen and evaluated at bedside with attending Dr. Amaya chart, labs and vitals reviewed; afebrile, VSS Wound culture ordered; staph aureus Local wound care: Mepilexkongyl Stable from podiatry standpoint Upon d/c patient to follow with Dr. Amaya/Ortega in office or wound care center Podiatry will continue to follow <Gui Vivas - Last Filed: 09/27/18 09:37> Objective - Vital Signs/Intake and Output Vital Signs (last 24 hours): Temp Pulse Resp BP Pulse Ox 97.9 F 94 H 20 112/72 99 09/26/18 16:00 09/27/18 08:30 09/26/18 16:00 09/27/18 08:30 09/26/18 16:00 Intake and Output: 09/27/18 09/27/18 06:59 18:59 Intake Total 300 Balance 300 - Medications Medications: Current Medications Albuterol/Ipratropium (Duoneb 3 Mg/0.5 Mg (3 Ml) Ud) 3 ml IH Q2H PRN; Protocol PRN Reason: Shortness of Breath Last Admin: 09/26/18 12:52 Dose: 3 ml Alprazolam (Xanax) 0.25 mg PO TID PRN; Protocol PRN Reason: Anxiety Stop: 10/04/18 10:01 Last Admin: 09/26/18 20:52 Dose: 0.25 mg Aspirin (Ecotrin) 81 mg PO 0800 [facility]; Protocol Last Admin: 09/27/18 08:30 Dose: 81 mg Atorvastatin Calcium (Lipitor) 80 mg PO DIN [facility]; Protocol Last Admin: 09/26/18 18:00 Dose: 80 mg Benzocaine/Menthol (Cepacol Sore Throat) 1 pedro MT Q2H PRN; Protocol PRN Reason: Sore Throat Collagenase (Santyl) 0 gm TOP DAILY [facility] Last Admin: 09/26/18 10:41 Dose: Not Given Ferrous Sulfate (Feosol) 324 mg PO BID [facility]; Protocol Last Admin: 09/26/18 18:00 Dose: 324 mg Furosemide (Lasix) 40 mg PO DAILY [facility]; Protocol Last Admin: 09/26/18 10:40 Dose: Not Given Metoprolol Succinate (Toprol Xl) 50 mg PO BRK [facility]; Protocol Last Admin: 09/27/18 08:30 Dose: 50 mg Mupirocin (Bactroban Ointment) 0 gm TOP BID [facility] Last Admin: 09/26/18 17:59 Dose: Not Given Pantoprazole Sodium (Protonix Ec Tab) 40 mg PO 0600 [facility]; Protocol Last Admin: 09/27/18 05:13 Dose: 40 mg Polyethylene Glycol (Miralax) 17 gm PO DAILY [facility]; Protocol Last Admin: 09/26/18 10:40 Dose: Not Given Spironolactone (Aldactone) 25 mg PO DAILY [facility]; Protocol Last Admin: 09/26/18 10:39 Dose: 25 mg Trazodone HCl (Desyrel) 25 mg PO HS PRN; Protocol PRN Reason: Insomnia Warfarin Sodium (Coumadin) 2 mg PO 1800 [facility]; Protocol Last Admin: 09/24/18 18:21 Dose: 2 mg - Labs Labs: 09/27/18 07:15 09/27/18 07:15 PT 33.5 SECONDS (9.4-12.5) H 09/27/18 07:15 INR 2.96 09/27/18 07:15 Attending/Attestation - Attestation I have personally seen and examined this patient.: Yes I have fully participated in the care of the patient.: Yes I have reviewed all pertinent clinical information, including history, physical exam and plan: Yes
--- NOTE | 2018-09-27 03:04 | PN ---
DATE: 09/26/2018 The patient was seen and examined. I do agree with the note of the medical cash poster. The patient has sodium of 130. The creatinine is 1.3. She states that she is feeling well. She is participating physical therapy. She is eating. She denies any pain. She says she is sleeping better. The patient is on Coumadin for her atrial fibrillation. This needs to be continued. She has chronic systolic CHF, stable. She is on Lasix and Aldactone. The patient has iron-deficiency anemia. Jin Cline MD
[2018-09-27] MEDS: Pantoprazole 40 mg EC Tab PO SCH (05:13)
[2018-09-27 07:35] LABS: BASO # 0.01 K/mm3 (0.0-2.0); BASO % 0.1 % (0.0-3.0); EOS % 0.5 % (1.5-5.0); LYMPH # 0.7 (1.2-3.4); LYMPH % 7.5 % (22.0-35.0); MEAN CELL VOLUME 77.9 fl (80.0-105.0); MEAN CORPUSCULAR HGB CONC 29.5 g/dl (31.0-37.0); MONO # 0.5 (0.1-0.6); MONO % 5.8 % (1.0-6.0); PLATELET COUNT 108 10^3/uL (120.0-450.0); RBC 4.35 10^6/uL (3.5-6.1); RED CELL DISTRIBUTION WIDTH 26.4 % (11.5-14.5); WHITE BLOOD COUNT 8.8 10^3/uL (4.5-11.0)
[2018-09-27 07:39] LABS: INR 2.96; PROTHROMBIN TIME 33.5 SECONDS (9.4-12.5)
[2018-09-27 07:51] LABS: ALBUMIN 3.3 g/dL (3.0-4.8); CALCIUM 8.5 mg/dL (8.4-10.5)
[2018-09-27] MEDS: Metoprolol Succinate 50 mg XL Tab PO SCH (08:30)
[2018-09-27] MEDS: Mupirocin 2% Ointment 15 GM TUBE TOP SCH (10:16)
[2018-09-27] MEDS: Collagenase 250 Units/gm Ointment(30 gm) TOP SCH (10:18)
[2018-09-27] MEDS: POLYETHYLENE GLYCOL 3350 17 GM/Dose PACKET PO SCH (10:18)
[2018-09-27 10:20] VITALS: BP 100/66
--- NOTE | 2018-09-27 11:19 | CP.PCM.DIS ---
<Kishan Bennett - Last Filed: 09/27/18 13:56> Provider - Provider Date of Admission: 09/19/18 16:31 Attending physician: Jin Cline MD Consults: 09/19/18 17:07 Cardiology Consult Routine Comment: Consulting Provider: Yaw Joy Consulting Physician: Yaw Joy Reason for Consult: recent pacemaker placement 09/19/18 21:49 Social Work Referral Routine Comment: NEEDS ASSISTANCE AT HOME Physician Instructions: Reason For Exam: EVALUATION 09/21/18 16:28 Physician Consult Routine Comment: Consulting Provider: Gui Vivas Consulting Physician: Gui Vivas Reason for Consult: left foot wound Time Spent in preparation of Discharge (in minutes): 45 Hospital Course - Lab Results Lab Results: Micro Results 09/22/18 10:50 Leg - Left Gram Stain - Final 09/22/18 10:50 Leg - Left Wound Culture - Final Staphylococcus Aureus Most Recent Lab Values WBC 8.8 10^3/uL (4.5-11.0) D 09/27/18 07:15 RBC 4.35 10^6/uL (3.5-6.1) 09/27/18 07:15 Hgb 10.0 g/dL (12.0-16.0) L 09/27/18 07:15 Hct 33.9 % (36.0-48.0) L 09/27/18 07:15 MCV 77.9 fl (80.0-105.0) L 09/27/18 07:15 MCH 23.0 pg (25.0-35.0) L 09/27/18 07:15 MCHC 29.5 g/dl (31.0-37.0) L 09/27/18 07:15 RDW 26.4 % (11.5-14.5) H 09/27/18 07:15 Plt Count 108 10^3/uL (120.0-450.0) L 09/27/18 07:15 Neut % (Auto) 86.1 % (50.0-68.0) H 09/27/18 07:15 Lymph % (Auto) 7.5 % (22.0-35.0) L 09/27/18 07:15 [place] % (Auto) 5.8 % (1.0-6.0) 09/27/18 07:15 Eos % (Auto) 0.5 % (1.5-5.0) L 09/27/18 07:15 Baso % (Auto) 0.1 % (0.0-3.0) 09/27/18 07:15 Lymph # (Auto) 0.7 (1.2-3.4) L 09/27/18 07:15 [place] # (Auto) 0.5 (0.1-0.6) 09/27/18 07:15 Eos # (Auto) 0.0 (0.0-0.7) 09/27/18 07:15 Baso # (Auto) 0.01 K/mm3 (0.0-2.0) 09/27/18 07:15 Absolute Neuts (auto) 7.61 (1.4-6.5) H 09/27/18 07:15 Corrected WBC (Man) Cancelled 09/26/18 07:00 Neutrophils % (Manual) Cancelled 09/26/18 07:00 Band Neutrophils % Cancelled 09/26/18 07:00 Lymphocytes % (Manual) Cancelled 09/26/18 07:00 Atypical Lymphs % Cancelled 09/26/18 07:00 Monocytes % (Manual) Cancelled 09/26/18 07:00 Eosinophils % (Manual) Cancelled 09/26/18 07:00 Basophils % (Manual) Cancelled 09/26/18 07:00 Metamyelocytes % Cancelled 09/26/18 07:00 Myelocytes % Cancelled 09/26/18 07:00 Promyelocytes % Cancelled 09/26/18 07:00 Nucleated RBC % Cancelled 09/26/18 07:00 Differential Comment 09/26/18 07:00 Hypersegmented Polys Cancelled 09/26/18 07:00 Immature Lymphocytes Cancelled 09/26/18 07:00 Blast Cells Cancelled 09/26/18 07:00 Smudge Cells Cancelled 09/26/18 07:00 Toxic Granulation Cancelled 09/26/18 07:00 Dohle Bodies Cancelled 09/26/18 07:00 Abelardo Rods Cancelled 09/26/18 07:00 Platelet Evaluation Cancelled 09/26/18 07:00 Plt Clumps, EDTA Cancelled 09/26/18 07:00 Large Platelets Cancelled 09/26/18 07:00 Giant Platelets Cancelled 09/26/18 07:00 Polychromasia Cancelled 09/26/18 07:00 Hypochromasia Cancelled 09/26/18 07:00 Hyperchromasia Cancelled 09/26/18 07:00 Poikilocytosis (manual Cancelled 09/26/18 07:00 Basophilic Stippling Cancelled 09/26/18 07:00 Anisocytosis (manual) Cancelled 09/26/18 07:00 Microcytosis (manual) Cancelled 09/26/18 07:00 Macrocytosis (manual) Cancelled 09/26/18 07:00 Spherocytes Cancelled 09/26/18 07:00 Sickle Cells Cancelled 09/26/18 07:00 Target Cells Cancelled 09/26/18 07:00 Tear Drop Cells Cancelled 09/26/18 07:00 Ovalocytes Cancelled 09/26/18 07:00 Stomatocytes Cancelled 09/26/18 07:00 Helmet Cells Cancelled 09/26/18 07:00 [place] Rings Cancelled 09/26/18 07:00 [place] Cells Cancelled 09/26/18 07:00 Acanthocytes (Spur) Cancelled 09/26/18 07:00 Rouleaux Cancelled 09/26/18 07:00 Schistocytes Cancelled 09/26/18 07:00 PT 33.5 SECONDS (9.4-12.5) H 09/27/18 07:15 INR 2.96 09/27/18 07:15 Sodium 128 mmol/L (132-148) L 09/27/18 07:15 Potassium 3.6 mmol/L (3.6-5.0) 09/27/18 07:15 Chloride 88 mmol/L (98-107) L 09/27/18 07:15 Carbon Dioxide 33 mmol/L (21-33) 09/27/18 07:15 Anion Gap 11 (10-20) 09/27/18 07:15 BUN 37 mg/dL (7-21) H 09/27/18 07:15 Creatinine 1.3 mg/dl (0.7-1.2) H 09/27/18 07:15 Est GFR ( Amer) 47 09/27/18 07:15 Est GFR (Non-Af Amer) 39 09/27/18 07:15 Random Glucose 88 mg/dL (70-110) 09/27/18 07:15 Calcium 8.5 mg/dL (8.4-10.5) 09/27/18 07:15 Total Bilirubin 2.0 mg/dL (0.2-1.3) H 09/27/18 07:15 AST 69 U/L (14-36) H 09/27/18 07:15 ALT 56 U/L (7-56) 09/27/18 07:15 Alkaline Phosphatase 145 U/L (38-126) H 09/27/18 07:15 Total Protein 6.7 g/dL (5.8-8.3) 09/27/18 07:15 Albumin 3.3 g/dL (3.0-4.8) 09/27/18 07:15 Globulin 3.3 gm/dL 09/27/18 07:15 Albumin/Globulin Ratio 1.0 (1.1-1.8) L 09/27/18 07:15 - Hospital Course Hospital Course: Patient is a 87-year-old female with past medical history of coronary artery disease with CABG and stents, A. fib on Coumadin, hypertension, osteoarthritis, anxiety,atrial fibrillation who was admitted for evaluation and treatment of SOB and generalized weakness. She was medically optimized in the inpatient setting and transferred to the TCU for physical rehabilitation. Patient was found to have a supratherapeutic INR and patient's warfarin was held. INR returned to therapeutic range and warfarin was resumed. Patient regained functional strength without development of acute complications in the TCU setting. At this time the patient is medically stable for discharge. Patient understands and appreciates discharge plan. Patient instructed to follow up with primary care physicians and referrals within three to five days from discharge. Furthermore, the patient is instructed to take medications as prescribed and to return to emergency room for evaluation of new or worsening symptoms including but limited to intractable headache, fever, chills, dizziness, chest pain, shortness of breath, abdominal pain, nausea, vomiting, diarrhea, constipation, and urinary symptoms. This is a brief summary of the patients hospital course. Please see patient chart for full details. Discharge Exam - Additional Findings Additional findings: - Constitutional Appears: Non-toxic, No Acute Distress - Head Exam Head Exam: ATRAUMATIC, NORMOCEPHALIC - Eye Exam Eye Exam: EOMI - ENT Exam ENT Exam: Mucous Membranes Moist - Neck Exam Neck exam: Positive for: Full Rom - Respiratory Exam Respiratory Exam: Clear to Auscultation Bilateral, NORMAL BREATHING PATTERN - Cardiovascular Exam Cardiovascular Exam: RRR, +S1, +S2. absent: Systolic Murmur - GI/Abdominal Exam GI & Abdominal Exam: Normal Bowel Sounds, Soft. absent: Distended, Firm, Guarding, Organomegaly, Rebound, Tenderness - Extremities Exam Extremities exam: Positive for: normal inspection. Negative for: calf tenderness, pedal edema - Neurological Exam Neurological exam: Alert, Oriented x3 - Psychiatric Exam Psychiatric exam: Normal Affect, Normal Mood - Skin Skin Exam: Dry, Normal Color, Warm Discharge Plan - Discharge Medications Prescriptions: Atorvastatin Calcium [Lipitor] 80 mg PO HS #7 tablet Furosemide [Lasix] 40 mg PO MWF 12 Days tab - Follow Up Plan Condition: GOOD Disposition: HOME/ ROUTINE Instructions: Hyperkalemia (DC), Kidney Failure (DC) Additional Instructions: Patient Instructions: Please take home medications as prescribed. Please do NOT take lasix everyday. Please take lasix 40mg 1 tablet via mouth on Monday, Monday, and Monday. Please take atorvastatin 80mg via mouth 1 tablet daily. Follow up with your primary care physican and referrals within three to five days from discharge. Please go to the nearest emergency room for evaluation of new or worsening symptoms including but limited to intractable headache, fever, chills, dizziness, chest pain, shortness of breath, abdominal pain, nausea, vomiting, diarrhea, constipation, and urinary symptoms. Referrals: Gui Vivas DPM [Staff Provider] - Yaw Joy MD [Staff Provider] - <Jin Cline - Last Filed: 09/28/18 18:22> Provider - Provider Date of Admission: 09/19/18 16:31 Attending physician: Jin Cline MD Consults: 09/19/18 17:07 Cardiology Consult Routine Comment: Consulting Provider: Yaw Joy Consulting Physician: Yaw Joy Reason for Consult: recent pacemaker placement 09/19/18 21:49 Social Work Referral Routine Comment: NEEDS ASSISTANCE AT HOME Physician Instructions: Reason For Exam: EVALUATION 09/21/18 16:28 Physician Consult Routine Comment: Consulting Provider: Gui Vivas Consulting Physician: Arloro,Vincent Reason for Consult: left foot wound Hospital Course - Lab Results Lab Results: Micro Results 09/22/18 10:50 Leg - Left Gram Stain - Final 09/22/18 10:50 Leg - Left Wound Culture - Final Staphylococcus Aureus Most Recent Lab Values WBC 8.8 10^3/uL (4.5-11.0) D 09/27/18 07:15 RBC 4.35 10^6/uL (3.5-6.1) 09/27/18 07:15 Hgb 10.0 g/dL (12.0-16.0) L 09/27/18 07:15 Hct 33.9 % (36.0-48.0) L 09/27/18 07:15 MCV 77.9 fl (80.0-105.0) L 09/27/18 07:15 MCH 23.0 pg (25.0-35.0) L 09/27/18 07:15 MCHC 29.5 g/dl (31.0-37.0) L 09/27/18 07:15 RDW 26.4 % (11.5-14.5) H 09/27/18 07:15 Plt Count 108 10^3/uL (120.0-450.0) L 09/27/18 07:15 Neut % (Auto) 86.1 % (50.0-68.0) H 09/27/18 07:15 Lymph % (Auto) 7.5 % (22.0-35.0) L 09/27/18 07:15 [place] % (Auto) 5.8 % (1.0-6.0) 09/27/18 07:15 Eos % (Auto) 0.5 % (1.5-5.0) L 09/27/18 07:15 Baso % (Auto) 0.1 % (0.0-3.0) 09/27/18 07:15 Lymph # (Auto) 0.7 (1.2-3.4) L 09/27/18 07:15 [place] # (Auto) 0.5 (0.1-0.6) 09/27/18 07:15 Eos # (Auto) 0.0 (0.0-0.7) 09/27/18 07:15 Baso # (Auto) 0.01 K/mm3 (0.0-2.0) 09/27/18 07:15 Absolute Neuts (auto) 7.61 (1.4-6.5) H 09/27/18 07:15 Corrected WBC (Man) Cancelled 09/26/18 07:00 Neutrophils % (Manual) Cancelled 09/26/18 07:00 Band Neutrophils % Cancelled 09/26/18 07:00 Lymphocytes % (Manual) Cancelled 09/26/18 07:00 Atypical Lymphs % Cancelled 09/26/18 07:00 Monocytes % (Manual) Cancelled 09/26/18 07:00 Eosinophils % (Manual) Cancelled 09/26/18 07:00 Basophils % (Manual) Cancelled 09/26/18 07:00 Metamyelocytes % Cancelled 09/26/18 07:00 Myelocytes % Cancelled 09/26/18 07:00 Promyelocytes % Cancelled 09/26/18 07:00 Nucleated RBC % Cancelled 09/26/18 07:00 Differential Comment 09/26/18 07:00 Hypersegmented Polys Cancelled 09/26/18 07:00 Immature Lymphocytes Cancelled 09/26/18 07:00 Blast Cells Cancelled 09/26/18 07:00 Smudge Cells Cancelled 09/26/18 07:00 Toxic Granulation Cancelled 09/26/18 07:00 Dohle Bodies Cancelled 09/26/18 07:00 Abelardo Rods Cancelled 09/26/18 07:00 Platelet Evaluation Cancelled 09/26/18 07:00 Plt Clumps, EDTA Cancelled 09/26/18 07:00 Large Platelets Cancelled 09/26/18 07:00 Giant Platelets Cancelled 09/26/18 07:00 Polychromasia Cancelled 09/26/18 07:00 Hypochromasia Cancelled 09/26/18 07:00 Hyperchromasia Cancelled 09/26/18 07:00 Poikilocytosis (manual Cancelled 09/26/18 07:00 Basophilic Stippling Cancelled 09/26/18 07:00 Anisocytosis (manual) Cancelled 09/26/18 07:00 Microcytosis (manual) Cancelled 09/26/18 07:00 Macrocytosis (manual) Cancelled 09/26/18 07:00 Spherocytes Cancelled 09/26/18 07:00 Sickle Cells Cancelled 09/26/18 07:00 Target Cells Cancelled 09/26/18 07:00 Tear Drop Cells Cancelled 09/26/18 07:00 Ovalocytes Cancelled 09/26/18 07:00 Stomatocytes Cancelled 09/26/18 07:00 Helmet Cells Cancelled 09/26/18 07:00 [place] Rings Cancelled 09/26/18 07:00 [place] Cells Cancelled 09/26/18 07:00 Acanthocytes (Spur) Cancelled 09/26/18 07:00 Rouleaux Cancelled 09/26/18 07:00 Schistocytes Cancelled 09/26/18 07:00 PT 33.5 SECONDS (9.4-12.5) H 09/27/18 07:15 INR 2.96 09/27/18 07:15 Sodium 128 mmol/L (132-148) L 09/27/18 07:15 Potassium 3.6 mmol/L (3.6-5.0) 09/27/18 07:15 Chloride 88 mmol/L (98-107) L 09/27/18 07:15 Carbon Dioxide 33 mmol/L (21-33) 09/27/18 07:15 Anion Gap 11 (10-20) 09/27/18 07:15 BUN 37 mg/dL (7-21) H 09/27/18 07:15 Creatinine 1.3 mg/dl (0.7-1.2) H 09/27/18 07:15 Est GFR ( Amer) 47 09/27/18 07:15 Est GFR (Non-Af Amer) 39 09/27/18 07:15 Random Glucose 88 mg/dL (70-110) 09/27/18 07:15 Calcium 8.5 mg/dL (8.4-10.5) 09/27/18 07:15 Total Bilirubin 2.0 mg/dL (0.2-1.3) H 09/27/18 07:15 AST 69 U/L (14-36) H 09/27/18 07:15 ALT 56 U/L (7-56) 09/27/18 07:15 Alkaline Phosphatase 145 U/L (38-126) H 09/27/18 07:15 Total Protein 6.7 g/dL (5.8-8.3) 09/27/18 07:15 Albumin 3.3 g/dL (3.0-4.8) 09/27/18 07:15 Globulin 3.3 gm/dL 09/27/18 07:15 Albumin/Globulin Ratio 1.0 (1.1-1.8) L 09/27/18 07:15 - Hospital Course Hospital Course: Pt was seen and examined. This is a late entry. The note of the medical specialist was reviewed and I agree the note. The plan of care was discussed with the resident.The labs and medications has been reviewed.
[2018-09-27 14:02] VITALS: PULSE 92; TEMP 98.4; O2SAT 100
== END 2018-09-27 16:35 | disposition home or self-care (01) | DRG 91 ==
LOC: TRCU 16:31
PROVIDERS: ADMIT Internal Medicine Nephrology; ATTEND Internal Medicine Nephrology
PROC: F07Z9FZ Gait Training/Functional Ambulation Treatment using Assistive, Adaptive, Supportive or Protective Equipment (ICD-10-PCS; principal; 2018-09-21)
PROC: F07Z8ZZ Transfer Training Treatment (ICD-10-PCS; 2018-09-21)
PROC: F07L6YZ Therapeutic Exercise Treatment of Musculoskeletal System - Lower Back / Lower Extremity using Other Equipment (ICD-10-PCS; 2018-09-21)
PROC: F08Z2ZZ Grooming/Personal Hygiene Treatment (ICD-10-PCS; 2018-09-21)
PROC: F08Z0FZ Bathing/Showering Techniques Treatment using Assistive, Adaptive, Supportive or Protective Equipment (ICD-10-PCS; 2018-09-21)
PROC: F08Z1FZ Dressing Techniques Treatment using Assistive, Adaptive, Supportive or Protective Equipment (ICD-10-PCS; 2018-09-23)
DX: R26.9 Unspecified abnormalities of gait and mobility (principal); I50.23 Acute on chronic systolic (congestive) heart failure; I13.0 Hypertensive heart and chronic kidney disease with heart failure and stage 1 through stage 4 chronic kidney disease, or unspecified chronic kidney disease; E87.1 Hypo-osmolality and hyponatremia; L97.829 Non-pressure chronic ulcer of other part of left lower leg with unspecified severity; B95.61 Methicillin susceptible Staphylococcus aureus infection as the cause of diseases classified elsewhere; E87.5 Hyperkalemia; N18.9 Chronic kidney disease, unspecified; D50.9 Iron deficiency anemia, unspecified; D69.6 Thrombocytopenia, unspecified; E78.5 Hyperlipidemia, unspecified; F41.9 Anxiety disorder, unspecified; I48.91 Unspecified atrial fibrillation; I08.1 Rheumatic disorders of both mitral and tricuspid valves; I25.10 Atherosclerotic heart disease of native coronary artery without angina pectoris; M19.90 Unspecified osteoarthritis, unspecified site; Z66 Do not resuscitate; R79.1 Abnormal coagulation profile; Z79.01 Long term (current) use of anticoagulants; Z79.82 Long term (current) use of aspirin; Z95.2 Presence of prosthetic heart valve; Z95.1 Presence of aortocoronary bypass graft; Z95.5 Presence of coronary angioplasty implant and graft; Z95.0 Presence of cardiac pacemaker

== ENCOUNTER 2018-10-02 14:46 | Inpatient (IN) | payer MEDICARE, BC ==
--- NOTE | 2018-10-02 16:59 | ED PDOC ---
Arrival/HPI - General Chief Complaint: Weakness/Neurological Deficit Time Seen by Provider: 10/02/18 15:57 Historian: Patient - History of Present Illness Narrative History of Present Illness (Text): 10/02/18 16:55 87-year-old female with past medical history of coronary artery disease with CABG and stents, A. fib on Coumadin, hypertension, osteoarthritis, anxiety presents today with fatigue and inability to ambulate. pt c/o slight shortness of breath, no cp or abdominal pain. no vomiting, diarrhea. pt states she has dressing on both legs for " poor circulation". pt denies fever/chills. denies dizziness or weakness. pt states she has discoloration of finger and toes which have been present for " a while now." Past Medical History - Provider Review Nursing Documentation Reviewed: Yes - Travel History Have you recently traveled outside [place] w/in the past 3 mons?: No - Tetanus Immunization Tetanus Immunization: Unknown - Reproductive Menopause: Yes - Cardiac Hx Cardiac Disorders: Yes (A fib, on coumadin, recent ablation with pacemaker insertion. CAD, CABG) Hx Hypertension: Yes - Pulmonary Hx Respiratory Disorders: No - Neurological Hx Neurological Disorder: No - HEENT Hx HEENT Disorder: No - Renal Hx Renal Disorder: No - Endocrine/Metabolic Hx Endocrine Disorders: No - Hematological/Oncological Hx Blood Disorders: No - Integumentary Hx Dermatological Disorder: No - Musculoskeletal/Rheumatological Hx Arthritis: Yes - Gastrointestinal Hx Gastrointestinal Disorders: No - Genitourinary/Gynecological Hx Genitourinary Disorders: No - Psychiatric Hx Psychophysiologic Disorder: Yes Hx Depression: Yes Hx Substance Use: No - Surgical History Hx Coronary Stent: Yes Other/Comment: Pacemaker - Anesthesia Hx Anesthesia Reactions: No Hx Malignant Hyperthermia: No Family/Social History - Physician Review Nursing Documentation Reviewed: Yes Family/Social History: Unknown Family HX Smoking Status: Never Smoked Hx Alcohol Use: Yes (social) Hx Substance Use: No Allergies/Home Meds Allergies/Adverse Reactions: Allergies iodine Allergy (Verified 09/19/18 17:40) ANAPHYLAXIS Sulfa (Sulfonamide Antibiotics) Allergy (Verified 09/19/18 17:40) ANAPHYLAXIS Review of Systems - Review of Systems Constitutional: Fatigue. absent: Fevers ENT: absent: Sinus Congestion Respiratory: SOB. absent: Cough Cardiovascular: absent: Chest Pain, Palpitations Gastrointestinal: absent: Abdominal Pain, Nausea, Vomiting Musculoskeletal: Arthralgias. absent: Back Pain, Neck Pain Neurological: absent: Headache, Dizziness Psychiatric: absent: Anxiety, Depression Physical Exam Vital Signs Reviewed: Yes Vital Signs Temp Pulse Resp BP Pulse Ox 10/02/18 16:47 97 H 20 95/65 L 100 10/02/18 14:47 97.5 F L 89 21 99/68 L 80 L Temperature: Afebrile Blood Pressure: Hypotensive Pulse: Regular Respiratory Rate: Normal Appearance: Positive for: Well-Appearing, Non-Toxic, Comfortable Pain Distress: None Mental Status: Positive for: Alert and Oriented X 3 Finger Stick Blood Glucose: 221 - Systems Exam Head: Present: Atraumatic Mouth: Present: Moist Mucous Membranes Neck: Present: Normal Range of Motion Respiratory/Chest: Present: Good Air Exchange. No: Respiratory Distress, Accessory Muscle Use, Rhonchi, Tachypneic Cardiovascular: Present: Regular Rate and Rhythm Abdomen: No: Tenderness, Distention, Rebound, Guarding Back: Present: Normal Inspection Upper Extremity: Present: Normal ROM, NORMAL PULSES, Neurovascularly Intact. No: Deformity Lower Extremity: Present: NORMAL PULSES Neurological: Present: GCS=15, Speech Normal Skin: Present: Warm, Dry Psychiatric: Present: Alert, Oriented x 3 Medical Decision Making ED Course and Treatment: 10/02/18 16:59 87yr old female with multiple medical problems presenting with hypotension and weakness with sob. cbc; wbc; wnl cmp; elevated bun,cr trop; 0.06 bnp; 65747 ekg; paced rhythm at 97 bpm pt with cyanosis to fingers, on both hands, greatest on the left; improved with warming of hands. 10/02/18 18:35 cxr; FINDINGS: LUNGS: The lungs are well inflated. There is interval development of airspace disease in the right lower lobe. There is subsegmental atelectasis in the left lower lobe. There is mild pulmonary venous congestion. PLEURA: There are small pleural effusions. No pneumothorax. CARDIOVASCULAR: Persistent severe cardiomegaly. Status post CABG. There is stable position of left-sided permanent pacing device. There are aortic atherosclerotic calcifications present. There is asymmetric enlargement of the right hilum OSSEOUS STRUCTURES: Within normal limits for the patient's age. VISUALIZED UPPER ABDOMEN: Normal. OTHER FINDINGS: None. IMPRESSION: Interval development of airspace disease in the right lower lobe presumable pneumonia. Macro follow-up. Worsening pulmonary venous congestion and interval development of small effusions most compatible with mild congestive heart failure. Asymmetric en largement of the right hilum could be related to vascular engorgement however hilar mass cannot be excluded. Correlation with CT scan of the chest with intravenous contrast would be helpful for definitive evaluation. pt started on vancomycin and zosyn for nosocomial pneumonia. Patient with worsening renal failure increasing BNP decreasing troponin Case discussed with Dr. Cline in depth accepts admission to telemetry Impression: Pneumonia,LOUISA admit tele - RAD Interpretation Radiology Orders: 10/02/18 16:06 CHEST PORTABLE [RAD] Stat Disposition/Present on Arrival - Present on Arrival Any Indicators Present on Arrival: No History of DVT/PE: No History of Uncontrolled Diabetes: No Urinary Catheter: No History of Decub. Ulcer: No History Surgical Site Infection Following: None - Disposition Have Diagnosis and Disposition been Completed?: Yes Diagnosis: Weakness, Pneumonia, LOUISA (acute kidney injury) Disposition: HOSPITALIZED Disposition Time: 16:59 Patient Problems: Current Active Problems Problem Status Onset LOUISA (acute kidney injury) Acute Pneumonia Acute Weakness Acute Condition: FAIR Discharge Instructions (ExitCare): Weakness (ED) Forms: [facility] (Mauritian)
[2018-10-02 17:35] LABS: BASO # 0.01 K/mm3 (0.0-2.0); BASO % 0.1 % (0.0-3.0); EOS # 0.1 (0.0-0.7); HEMOGLOBIN 11.1 g/dL (12.0-16.0); LYMPH # 0.5 (1.2-3.4); LYMPH % 6.6 % (22.0-35.0); MEAN CELL VOLUME 79.8 fl (80.0-105.0); MEAN CORPUSCULAR HEMOGLOBIN 24.1 pg (25.0-35.0); MEAN CORPUSCULAR HGB CONC 30.2 g/dl (31.0-37.0); MEAN PLATELET VOLUME 9.9 fl (7.0-11.0); MONO % 13.1 % (1.0-6.0); RBC 4.61 10^6/uL (3.5-6.1); RED CELL DISTRIBUTION WIDTH 27.7 % (11.5-14.5); WHITE BLOOD COUNT 7.3 10^3/uL (4.5-11.0)
[2018-10-02 17:44] LABS: ALBUMIN 3.5 g/dL (3.0-4.8); CALCIUM 8.7 mg/dL (8.4-10.5)
[2018-10-02 17:49] LABS: PARTIAL THROMBOPLASTIN TIME 46.4 Seconds (26.9-38.3)
[2018-10-02 17:54] LABS: TROPONIN I 0.06 ng/mL
--- NOTE | 2018-10-02 17:59 | RAD ---
Date of service: 10/02/2018 HISTORY: shortness of breath COMPARISON: 09/16/2018. FINDINGS: LUNGS: The lungs are well inflated. There is interval development of airspace disease in the right lower lobe. There is subsegmental atelectasis in the left lower lobe. There is mild pulmonary venous congestion. PLEURA: There are small pleural effusions. No pneumothorax. CARDIOVASCULAR: Persistent severe cardiomegaly. Status post CABG. There is stable position of left-sided permanent pacing device. There are aortic atherosclerotic calcifications present. There is asymmetric enlargement of the right hilum OSSEOUS STRUCTURES: Within normal limits for the patient's age. VISUALIZED UPPER ABDOMEN: Normal. OTHER FINDINGS: None. IMPRESSION: Interval development of airspace disease in the right lower lobe presumable pneumonia. Macro follow-up. Worsening pulmonary venous congestion and interval development of small effusions most compatible with mild congestive heart failure. Asymmetric enlargement of the right hilum could be related to vascular engorgement however hilar mass cannot be excluded. Correlation with CT scan of the chest with intravenous contrast would be helpful for definitive evaluation. The final report is tagged to the PA review folder.
[2018-10-02] MEDS ORDERED: Piperacillin/Tazobact 3.375 gm 100 ML IVPB STA (18:23)
[2018-10-02] MEDS ORDERED: Vancomycin 1gm in NS 250ml 1 GM/250 ML BAG IVPB STA (18:23)
[2018-10-02 18:34] LABS: INR 3.83; PROTHROMBIN TIME 42.5 SECONDS (9.4-12.5)
--- NOTE | 2018-10-02 21:47 | CARD ---
APPROVED REPORT Date of service: 10/02/2018 EKG Measurement Heart [id number] <Conclusion> Electronic ventricular pacemaker
[2018-10-02 23:07] VITALS: BMI 23.9
--- NOTE | 2018-10-03 06:56 | CP.PCM.HP ---
Past Patient History - Tetanus Immunizations Tetanus Immunization: Unknown - Past Social History Smoking Status: Never Smoked - CARDIAC Hx Cardiac Disorders: Yes (A fib, on coumadin, recent ablation with pacemaker insertion. CAD, CABG) Hx Hypertension: Yes - PULMONARY Hx Respiratory Disorders: No - NEUROLOGICAL Hx Neurological Disorder: No - HEENT Hx HEENT Problems: No - RENAL Hx Chronic Kidney Disease: No - ENDOCRINE/METABOLIC Hx Endocrine Disorders: No - HEMATOLOGICAL/ONCOLOGICAL Hx Blood Disorders: No - INTEGUMENTARY Hx Dermatological Problems: No - MUSCULOSKELETAL/RHEUMATOLOGICAL Hx Arthritis: Yes - GASTROINTESTINAL Hx Gastrointestinal Disorders: No - GENITOURINARY/GYNECOLOGICAL Hx Genitourinary Disorders: No - PSYCHIATRIC Hx Psychophysiologic Disorder: Yes Hx Depression: Yes Hx Substance Use: No - SURGICAL HISTORY Hx Coronary Stent: Yes Other/Comment: Pacemaker - ANESTHESIA Hx Anesthesia Reactions: No Hx Malignant Hyperthermia: No Meds Allergies/Adverse Reactions: Allergies Allergy/AdvReac Type Severity Reaction Status Date / Time iodine Allergy ANAPHYLAXIS Verified 09/19/18 17:40 Sulfa (Sulfonamide Allergy ANAPHYLAXIS Verified 09/19/18 17:40 Antibiotics) Results - Vital Signs Recent Vital Signs: Last Vital Signs Temp 97.8 F 10/02/18 21:00 Pulse 94 H 10/03/18 06:00 Resp 18 10/02/18 21:25 BP 96/60 L 10/02/18 21:00 Pulse Ox 98 10/02/18 21:00 - Labs Result Diagrams: 10/02/18 17:15 10/02/18 17:15 Labs: Laboratory Results - last 24 hr 10/02/18 10/02/18 10/02/18 15:12 17:15 17:15 WBC 7.3 RBC 4.61 Hgb 11.1 L Hct 36.8 MCV 79.8 L MCH 24.1 L MCHC 30.2 L RDW 27.7 H Plt Count 180 MPV 9.9 Neut % (Auto) 79.2 H Lymph % (Auto) 6.6 L [place] % (Auto) 13.1 H Eos % (Auto) 1.0 L Baso % (Auto) 0.1 Lymph # (Auto) 0.5 L [place] # (Auto) 1.0 H Eos # (Auto) 0.1 Baso # (Auto) 0.01 Absolute Neuts (auto) 5.74 PT INR APTT Sodium 131 L Potassium 4.4 Chloride 88 L Carbon Dioxide 31 Anion Gap 16 BUN 73 H Creatinine 2.1 H Est GFR ( Amer) 27 Est GFR (Non-Af Amer) 22 POC Glucose (mg/dL) 220 H Random Glucose 117 H Calcium 8.7 Total Bilirubin 1.7 H AST 60 H ALT 41 Alkaline Phosphatase 151 H Lactate Dehydrogenase 810 H Total Creatine Kinase 42 Troponin I 0.06 D NT-Pro-B Natriuret Pep 31542 H Total Protein 7.1 Albumin 3.5 Globulin 3.6 Albumin/Globulin Ratio 1.0 L 10/02/18 17:15 WBC RBC Hgb Hct MCV MCH MCHC RDW Plt Count MPV Neut % (Auto) Lymph % (Auto) [place] % (Auto) Eos % (Auto) Baso % (Auto) Lymph # (Auto) [place] # (Auto) Eos # (Auto) Baso # (Auto) Absolute Neuts (auto) PT 42.5 H INR 3.83 H* APTT 46.4 H Sodium Potassium Chloride Carbon Dioxide Anion Gap BUN Creatinine Est GFR ( Amer) Est GFR (Non-Af Amer) POC Glucose (mg/dL) Random Glucose Calcium Total Bilirubin AST ALT Alkaline Phosphatase Lactate Dehydrogenase Total Creatine Kinase Troponin I NT-Pro-B Natriuret Pep Total Protein Albumin Globulin Albumin/Globulin Ratio
--- NOTE | 2018-10-03 07:04 | CP.PCM.HP ---
<Bennett,Kishan - Last Filed: 10/03/18 13:35> History of Present Illness - History of Present Illness History of Present Illness: Kishan Bennett- Internal Medicine Resident- H&P on Behalf of Dr. Cline Subjective: CC: SOB HPI: Patient is a 87-year-old female with past medical history of coronary artery disease with CABG and stents, A. fib on Coumadin, hypertension, osteoarthritis, anxiety,atrial fibrillation who was admitted for evaluation and treatment of shortness of breath. States the SOB began 2 days ago and is worse with exertion. Denies associated chest pain, dizziness, palpitations. States that she did not take home lasix as prescribed on discharge. Further denies fever, chills, dizziness, abdominal pain, nausea, vomiting, diarrhea, and urinary symptoms. 12 point ROS negative except as indicated in the HPI PMH: coronary artery disease with CABG and stents, A. fib on Coumadin, hypertension, osteoarthritis, anxiety,atrial fibrillation PSH: CABG 30 years ago, heart valve replacementlikely prosthetic (reported Pig valve), Pacemaker and ablation 1 week ago Allergies: Iodine and sulfa SH: Denies ETOH use, tobacco use, and illicit drug use FH: Sister- "kidney disease" Medications: Refer to MAR Physical Examination: - Constitutional Appears: Non-toxic, No Acute Distress - Head Exam Head Exam: ATRAUMATIC, NORMOCEPHALIC - Eye Exam Eye Exam: EOMI - ENT Exam ENT Exam: Mucous Membranes Moist - Neck Exam Neck exam: Positive for: Full Rom - Respiratory Exam Respiratory Exam: bibasilar crackles - Cardiovascular Exam Cardiovascular Exam: RRR, +S1, +S2, absent: Systolic Murmur - GI/Abdominal Exam GI & Abdominal Exam: Normal Bowel Sounds, Soft. absent: Distended, Firm, Guarding, Organomegaly, Rebound, Tenderness - Extremities Exam Extremities exam: legs wrapped bilaterally from toes to knees - Neurological Exam Neurological exam: Alert, Oriented x3 - Psychiatric Exam Psychiatric exam: Normal Affect, Normal Mood - Skin Skin Exam: Dry, Warm, old sternotomy scar intact Assessment and Plan: Hospital Acquired Pneumonia Acute on Chronic Systolic Congestive Heart Failure Supra therapeutic INR- hold AC Atrial fibrillation on Coumadin- on hold due to elevated INR Coronary artery disease Hyponatremia- stable 129 Osteoarthritis Hypertension Iron deficiency anemia- hemoglobin stable 11.1 Left leg superficial tear of the skin Right leg deep tissue injury on posterior calf Allergies to Iodine and sulfa 10/02/2018 CXR: Interval development of airspace disease in the right lower lobe presumable pneumonia. Worsening pulmonary venous congestion and interval development of small effusions most compatible with mild congestive heart failure.] Asymmetric enlargement of the right hilum could be related to vascular engorgement however hilar mass cannot be excluded. Start vancomycin and cefepime for HCAP. Procalcitonin ordered and pending. Continue with Duonebs prn for shortness of breath. Continue metoprolol for treatment of atrial fibrillation (hold if SBP less than 100mmHg). Continue to hold dose of warfarin due to elevated INR. Continue aspirin and lipitor for treatment of CAD. For treatment of chronic systolic congestive heart failure continue spironolactone and start lasix 40mg IV daily. For treatment of htn cont home aldactone. For her anxiety continue with Xanax as needed. Continue to monitor sodium level via morning CMP. In regards to iron defiency anemia continue to monitor CBC. Continue with heart healthy diet. Dispo- pending TCU evaluation. Patient case reviewed with and plan approved by attending physician, Dr. Cline. Present on Admission - Present on Admission Any Indicators Present on Admission: Yes Past Patient History - Tetanus Immunizations Tetanus Immunization: Unknown - Past Social History Smoking Status: Never Smoked - CARDIAC Hx Cardiac Disorders: Yes (A fib, on coumadin, recent ablation with pacemaker insertion. CAD, CABG) Hx Hypertension: Yes - PULMONARY Hx Respiratory Disorders: No - NEUROLOGICAL Hx Neurological Disorder: No - HEENT Hx HEENT Problems: No - RENAL Hx Chronic Kidney Disease: No - ENDOCRINE/METABOLIC Hx Endocrine Disorders: No - HEMATOLOGICAL/ONCOLOGICAL Hx Blood Disorders: No - INTEGUMENTARY Hx Dermatological Problems: No - MUSCULOSKELETAL/RHEUMATOLOGICAL Hx Arthritis: Yes - GASTROINTESTINAL Hx Gastrointestinal Disorders: No - GENITOURINARY/GYNECOLOGICAL Hx Genitourinary Disorders: No - PSYCHIATRIC Hx Psychophysiologic Disorder: Yes Hx Depression: Yes Hx Substance Use: No - SURGICAL HISTORY Hx Coronary Stent: Yes Other/Comment: Pacemaker - ANESTHESIA Hx Anesthesia Reactions: No Hx Malignant Hyperthermia: No Meds Allergies/Adverse Reactions: Allergies Allergy/AdvReac Type Severity Reaction Status Date / Time iodine Allergy ANAPHYLAXIS Verified 09/19/18 17:40 Sulfa (Sulfonamide Allergy ANAPHYLAXIS Verified 09/19/18 17:40 Antibiotics) Results - Vital Signs Recent Vital Signs: Last Vital Signs Temp 97.8 F 10/02/18 21:00 Pulse 94 H 10/03/18 06:00 Resp 18 10/02/18 21:25 BP 96/60 L 10/02/18 21:00 Pulse Ox 98 10/02/18 21:00 - Labs Result Diagrams: 10/03/18 07:30 10/03/18 07:30 Labs: Laboratory Results - last 24 hr 10/02/18 10/02/18 10/02/18 15:12 17:15 17:15 WBC 7.3 RBC 4.61 Hgb 11.1 L Hct 36.8 MCV 79.8 L MCH 24.1 L MCHC 30.2 L RDW 27.7 H Plt Count 180 MPV 9.9 Neut % (Auto) 79.2 H Lymph % (Auto) 6.6 L [place] % (Auto) 13.1 H Eos % (Auto) 1.0 L Baso % (Auto) 0.1 Lymph # (Auto) 0.5 L [place] # (Auto) 1.0 H Eos # (Auto) 0.1 Baso # (Auto) 0.01 Absolute Neuts (auto) 5.74 PT INR APTT Sodium 131 L Potassium 4.4 Chloride 88 L Carbon Dioxide 31 Anion Gap 16 BUN 73 H Creatinine 2.1 H Est GFR ( Amer) 27 Est GFR (Non-Af Amer) 22 POC Glucose (mg/dL) 220 H Random Glucose 117 H Calcium 8.7 Total Bilirubin 1.7 H AST 60 H ALT 41 Alkaline Phosphatase 151 H Lactate Dehydrogenase 810 H Total Creatine Kinase 42 Troponin I 0.06 D NT-Pro-B Natriuret Pep 95548 H Total Protein 7.1 Albumin 3.5 Globulin 3.6 Albumin/Globulin Ratio 1.0 L 10/02/18 17:15 WBC RBC Hgb Hct MCV MCH MCHC RDW Plt Count MPV Neut % (Auto) Lymph % (Auto) [place]haw % (Auto) Eos % (Auto) Baso % (Auto) Lymph # (Auto) [place] # (Auto) Eos # (Auto) Baso # (Auto) Absolute Neuts (auto) PT 42.5 H INR 3.83 H* APTT 46.4 H Sodium Potassium Chloride Carbon Dioxide Anion Gap BUN Creatinine Est GFR ( Amer) Est GFR (Non-Af Amer) POC Glucose (mg/dL) Random Glucose Calcium Total Bilirubin AST ALT Alkaline Phosphatase Lactate Dehydrogenase Total Creatine Kinase Troponin I NT-Pro-B Natriuret Pep Total Protein Albumin Globulin Albumin/Globulin Ratio <Jin Cline S - Last Filed: 10/03/18 18:15> History of Present Illness - History of Present Illness History of Present Illness: Pt seen and examined by me. I have reviewed the note of the medical anthropology director and I agree with it. I have discussed the assessment and plan with the resident. I have reviewed the medications and the last labs. Results - Vital Signs Recent Vital Signs: Last Vital Signs Temp 97.6 F 10/03/18 12:00 Pulse 93 H 10/03/18 14:00 Resp 20 10/03/18 12:00 BP 98/62 L 10/03/18 12:00 Pulse Ox 98 10/02/18 21:00 - Labs Result Diagrams: 10/03/18 07:30 10/03/18 07:30 Labs: Laboratory Results - last 24 hr 10/02/18 10/02/18 10/03/18 15:12 17:15 07:00 WBC RBC Hgb Hct MCV MCH MCHC RDW Plt Count Neut % (Auto) Lymph % (Auto) [place] % (Auto) Eos % (Auto) Baso % (Auto) Lymph # (Auto) [place] # (Auto) Eos # (Auto) Baso # (Auto) Absolute Neuts (auto) PT 42.5 H INR 3.83 H* Sodium Potassium Chloride Carbon Dioxide Anion Gap BUN Creatinine Est GFR ( Amer) Est GFR (Non-Af Amer) POC Glucose (mg/dL) 220 H Random Glucose Serum Osmolality Calcium Phosphorus Magnesium Total Bilirubin AST ALT Alkaline Phosphatase Total Protein Albumin Globulin Albumin/Globulin Ratio Procalcitonin 0.19 10/03/18 10/03/18 10/03/18 07:30 07:30 07:30 WBC 10.2 D RBC 4.66 Hgb 11.0 L Hct 37.1 MCV 79.6 L MCH 23.6 L MCHC 29.6 L RDW 27.7 H Plt Count 185 Neut % (Auto) 80.7 H Lymph % (Auto) 11.5 L [place]haw % (Auto) 7.2 H Eos % (Auto) 0.3 L Baso % (Auto) 0.3 Lymph # (Auto) 1.2 [place]haw # (Auto) 0.7 H Eos # (Auto) 0.0 Baso # (Auto) 0.03 Absolute Neuts (auto) 8.19 H PT 49.3 H INR 4.36 H* Sodium 129 L Potassium 4.8 Chloride 89 L Carbon Dioxide 29 Anion Gap 16 BUN 74 H Creatinine 2.4 H Est GFR ( Amer) 23 Est GFR (Non-Af Amer) 19 POC Glucose (mg/dL) Random Glucose 78 Serum Osmolality Calcium 8.6 Phosphorus 3.9 Magnesium 2.5 H Total Bilirubin 1.7 H AST 60 H ALT 51 Alkaline Phosphatase 161 H Total Protein 6.7 Albumin 3.3 Globulin 3.4 Albumin/Globulin Ratio 1.0 L Procalcitonin 10/03/18 11:00 WBC RBC Hgb Hct MCV MCH MCHC RDW Plt Count Neut % (Auto) Lymph % (Auto) K[place]haw % (Auto) Eos % (Auto) Baso % (Auto) Lymph # (Auto) [place] # (Auto) Eos # (Auto) Baso # (Auto) Absolute Neuts (auto) PT INR Sodium Potassium Chloride Carbon Dioxide Anion Gap BUN Creatinine Est GFR ( Amer) Est GFR (Non-Af Amer) POC Glucose (mg/dL) Random Glucose Serum Osmolality 291 Calcium Phosphorus Magnesium Total Bilirubin AST ALT Alkaline Phosphatase Total Protein Albumin Globulin Albumin/Globulin Ratio Procalcitonin
[2018-10-03] MEDS ORDERED: Albuterol-Ipratrop 3 mg / 0.5 (3 ml) UD IH PRN (07:18)
[2018-10-03 07:43] LABS: BASO # 0.03 K/mm3 (0.0-2.0); BASO % 0.3 % (0.0-3.0); EOS % 0.3 % (1.5-5.0); LYMPH # 1.2 (1.2-3.4); LYMPH % 11.5 % (22.0-35.0); MEAN CELL VOLUME 79.6 fl (80.0-105.0); MEAN CORPUSCULAR HEMOGLOBIN 23.6 pg (25.0-35.0); MEAN CORPUSCULAR HGB CONC 29.6 g/dl (31.0-37.0); MONO # 0.7 (0.1-0.6); MONO % 7.2 % (1.0-6.0); PLATELET COUNT 185 10^3/uL (120.0-450.0); RBC 4.66 10^6/uL (3.5-6.1); RED CELL DISTRIBUTION WIDTH 27.7 % (11.5-14.5); WHITE BLOOD COUNT 10.2 10^3/uL (4.5-11.0)
[2018-10-03 08:05] LABS: ALBUMIN 3.3 g/dL (3.0-4.8); CALCIUM 8.6 mg/dL (8.4-10.5)
[2018-10-03 08:10] LABS: PROTHROMBIN TIME 49.3 SECONDS (9.4-12.5)
[2018-10-03 08:12] LABS: INR 4.36
[2018-10-03] MEDS: POLYETHYLENE GLYCOL 3350 17 GM/Dose PACKET PO SCH (09:00)
[2018-10-03] MEDS: Vancomycin 1gm in NS 250ml 1 GM/250 ML BAG IVPB SCH (09:01)
[2018-10-03] MEDS: Cefepime 1gm in NS 100ml 1 GM/100 ML BAG IVPB SCH (09:01)
[2018-10-03] MEDS: Metoprolol Succinate 50 mg XL Tab PO SCH (09:10)
[2018-10-03] MEDS ORDERED: Piperacillin/Tazobact 3.375 gm 100 ML IVPB SCH (10:00)
--- NOTE | 2018-10-03 10:18 | CP.PCM.APN ---
Subjective - Date & Time of Evaluation Date of Evaluation: 10/03/18 Time of Evaluation: 10:11 - Subjective Subjective: pt seen and examined at bedside, pt asking to get OOB, states her bottom is sore, nurse states pt was hypotensive, asked nurse to repeat bp prior to getting pt oob Review of Systems - Constitutional Constitutional: Weakness Objective - Vital Signs/Intake and Output Vital Signs (last 24 hours): Temp Pulse Resp BP Pulse Ox 97.8 F 94 H 18 111/68 98 10/02/18 21:00 10/03/18 06:00 10/02/18 21:25 10/03/18 08:59 10/02/18 21:00 - Medications Medications: Current Medications Albuterol/Ipratropium (Duoneb 3 Mg/0.5 Mg (3 Ml) Ud) 3 ml IH [id number] PRN PRN Reason: Shortness of Breath Last Admin: 10/03/18 08:16 Dose: 3 ml Aspirin (Ecotrin) 81 mg PO 0800 [facility] Last Admin: 10/03/18 08:56 Dose: 81 mg Atorvastatin Calcium (Lipitor) 80 mg PO HS [facility] Ferrous Sulfate (Feosol) 324 mg PO BID [facility] Last Admin: 10/03/18 08:59 Dose: 324 mg Furosemide (Lasix) 40 mg IVP DAILY [facility] Last Admin: 10/03/18 08:59 Dose: 40 mg Vancomycin HCl (Vancomycin 1gm) 1 gm in 250 mls @ 167 mls/hr IVPB DAILY [facility]; Protocol Last Admin: 10/03/18 09:01 Dose: 167 mls/hr Cefepime HCl (Maxipime 1gm) 1 gm in 100 mls @ 100 mls/hr IVPB Q24H [facility]; Protocol Last Admin: 10/03/18 09:01 Dose: 100 mls/hr Metoprolol Succinate (Toprol Xl) 50 mg PO BRK [facility] Polyethylene Glycol (Miralax) 17 gm PO DAILY [facility] Last Admin: 10/03/18 09:00 Dose: 17 gm Spironolactone (Aldactone) 25 mg PO DAILY [facility] Trazodone HCl (Desyrel) 25 mg PO HS PRN PRN Reason: Insomnia Warfarin Sodium (Coumadin) 2 mg PO 1800 [facility]; Protocol - Labs Labs: 10/03/18 07:30 10/03/18 07:30 PT 49.3 SECONDS (9.4-12.5) H 10/03/18 07:30 INR 4.36 H* 10/03/18 07:30 APTT 46.4 Seconds (26.9-38.3) H 10/02/18 17:15 - Constitutional Appears: No Acute Distress - Head Exam Head Exam: NORMAL INSPECTION - Eye Exam Eye Exam: Normal appearance - ENT Exam ENT Exam: Mucous Membranes Moist - Respiratory Exam Respiratory Exam: Decreased Breath Sounds, NORMAL BREATHING PATTERN - Cardiovascular Exam Cardiovascular Exam: Irregular Rhythm, +S1, +S2 Additional comments: pt has PPM, old sternotomy scar intact - GI/Abdominal Exam GI & Abdominal Exam: Soft, Normal Bowel Sounds - Rectal Exam Rectal Exam: Deferred - Extremities Exam Extremities Exam: Pedal Edema Additional comments: legs wrapped bilaterally from toes to knees with kurlex wrap - Neurological Exam Neurological Exam: Alert, Awake, Oriented x3 - Skin Skin Exam: Dry, Intact Assessment and Plan - Assessment and Plan (Free Text) Plan: ITS Impressions Chest X-Ray 10/02/18 16:06 IMPRESSION: Interval development of airspace disease in the right lower lobe presumable pneumonia. Macro follow-up. Worsening pulmonary venous congestion and interval development of small effusions most compatible with mild congestive heart failure. Asymmetric enlargement of the right hilum could be related to vascular engorgement however hilar mass cannot be excluded. Correlation with CT scan of the chest with intravenous contrast would be helpful for definitive evaluation. The final report is tagged to the PA review folder. 87 yr old whitte female with pmh sig for cd s/p cabg, afib s/p ablations, ppm, htn, oa, anxiety who presented with hypotension and weakness and was found to have worsening pulmonary venous congestion and interval development of small effusions most compatible with mild congestive heart failure and right lower lobe presumable pneumonia. BNP 51,100. pt in now admitted for further mgmt of chf and pne with iv antiobiotics onboard and pancultures pending. will continue to follow and discuss with IDT team . BPCI/TIC - BPCIA/TIC Educated pt/family on BPCIA/CIR/Med to Bed Programs: Yes Flyers given, including [facility] Beneficiary letter: Yes Pt/family verbalized understanding & agreed to program: Yes
[2018-10-03 21:09] LABS: URINE APPEARANCE CLEAR (CLEAR); URINE BILIRUBIN NEGATIVE (NEGATIVE); URINE BLOOD NEGATIVE (NEGATIVE); URINE COLOR DARK YELLOW (YELLOW); URINE GLUCOSE (UA) NEGATIVE (NEGATIVE); URINE LEUKOCYTE ESTERASE TRACE Leu/uL (NEGATIVE); URINE PROTEIN TRACE mg/dL (<30 mg/dL); URINE UROBILINOGEN 0.2 E.U./dL (<1 E.U./dL)
[2018-10-03 21:15] LABS: URINE WBC 0 - 2 /hpf (0-6)
--- NOTE | 2018-10-03 21:39 | PN ---
DATE: 10/03/2018 SUBJECTIVE: The patient was seen and examined. I do agree with the note of the medical screener. I was involved in the plan of care. The patient is a 87-year-old female, who came to the hospital, feeling weak, she had not been taking her IV diuretics. Lasix was prescribed. She has a chest x-ray that showed hospital acquired pneumonia. The patient has been started on IV antibiotics. She has hyponatremia, this will be evaluated further. The patient has high INR. Her Coumadin will be replaced and it will be put on hold. She most likely is going to need physical therapy. I did speak to the patient's primary doctor yesterday, she had told me about the patient's current condition. She does have lower extremity edema. She has iron deficiency anemia history. PLAN: The patient has been started on antibiotics with vancomycin and cefepime. She has atrial fibrillation and will need to continue on Coumadin. She is on Xanax as needed. We will hold her metoprolol. She may need a subacute rehab. She is on Lipitor for dyslipidemia. Jin Cline MD
[2018-10-04 06:48] LABS: BASO # 0.02 K/mm3 (0.0-2.0); BASO % 0.3 % (0.0-3.0); EOS % 0.5 % (1.5-5.0); HEMOGLOBIN 10.9 g/dL (12.0-16.0); LYMPH # 0.9 (1.2-3.4); LYMPH % 11.9 % (22.0-35.0); MEAN CELL VOLUME 78.3 fl (80.0-105.0); MEAN CORPUSCULAR HEMOGLOBIN 23.4 pg (25.0-35.0); MEAN CORPUSCULAR HGB CONC 29.9 g/dl (31.0-37.0); MONO # 0.8 (0.1-0.6); MONO % 10.7 % (1.0-6.0); PLATELET COUNT 193 10^3/uL (120.0-450.0); RBC 4.66 10^6/uL (3.5-6.1); RED CELL DISTRIBUTION WIDTH 28.3 % (11.5-14.5); WHITE BLOOD COUNT 7.5 10^3/uL (4.5-11.0)
[2018-10-04 06:50] LABS: ALB/GLOB RATIO 0.8 (1.1-1.8); ALBUMIN 2.9 g/dL (3.0-4.8); CALCIUM 8.7 mg/dL (8.4-10.5)
[2018-10-04 08:34] LABS: PROTHROMBIN TIME 49.6 SECONDS (9.4-12.5)
[2018-10-04 08:37] LABS: INR 4.39
--- NOTE | 2018-10-04 09:24 | CP.PCM.PN ---
<Kishan Bennett - Last Filed: 10/04/18 11:07> Subjective - Date & Time of Evaluation Date of Evaluation: 10/04/18 Time of Evaluation: 07:20 - Subjective Subjective: Kishan Bennett- Internal Medicine Resident- Progress Note on Behalf of Dr. Cline Subjective: Patient seen and examined at bedside. Patient experienced nonsustained ventricular tachycardia while be helped to bathroom. Denies associated dizzi ness, chest pain, and palpitations. States baseline SOB has significantly improved. Further denies fever, chills, abdominal pain, nausea, vomiting, diarrhea, and urinary symptoms. 12 point ROS negative except as indicated in the HPI Physical Examination: - Constitutional Appears: Non-toxic, No Acute Distress - Head Exam Head Exam: ATRAUMATIC, NORMOCEPHALIC - Eye Exam Eye Exam: EOMI - ENT Exam ENT Exam: Mucous Membranes Moist - Neck Exam Neck exam: Positive for: Full Rom - Respiratory Exam Respiratory Exam: no rhonchi, no wheezing - Cardiovascular Exam Cardiovascular Exam: RRR, +S1, +S2, absent: Systolic Murmur - GI/Abdominal Exam GI & Abdominal Exam: Normal Bowel Sounds, Soft. absent: Distended, Firm, Guarding, Organomegaly, Rebound, Tenderness - Extremities Exam Extremities exam: legs wrapped bilaterally from toes to knees - Neurological Exam Neurological exam: Alert, Oriented x3 - Psychiatric Exam Psychiatric exam: Normal Affect, Normal Mood - Skin Skin Exam: Dry, Warm, old sternotomy scar intact Assessment and Plan: Hospital Acquired Pneumonia [place] Acute on Chronic Systolic Congestive Heart Failure Supra therapeutic INR- hold AC Atrial fibrillation on Coumadin- on hold due to elevated INR Nonsustained Ventricular Tachycardia Coronary artery disease Hyponatremia- improving Osteoarthritis Hypertension Iron deficiency anemia- hemoglobin stable 11.1 Left leg superficial tear of the skin Right leg deep tissue injury on posterior calf Allergies to Iodine and sulfa 10/02/2018 CXR: Interval development of airspace disease in the right lower lobe presumable pneumonia. Worsening pulmonary venous congestion and interval development of small effusions most compatible with mild congestive heart failure Asymmetric enlargement of the right hilum could be related to vascular engorgement however hilar mass cannot be excluded. Continue day 2 of vancomycin and cefepime for HCAP. Procalcitonin low. Continue with Duonebs prn for shortness of breath. Metoprolol was held due to low blood pressure readings. Will continue for treatment of atrial fibrillation with holding parameters if SBP less than 100mmHg and if cardiology approves. Continue to hold dose of warfarin due to elevated INR. Continue aspirin and lipitor for treatment of CAD. For treatment of chronic systolic congestive heart failure continue spironolactone and lasix 40mg IV daily. For treatment of htn cont home aldactone. For her anxiety continue with Xanax as needed. Continue to monitor sodium level via morning CMP. In regards to iron defiency anemia continue to monitor CBC. Continue with heart healthy diet. Physical therapy recommends subac [facility]. Dispo- pending TCU evaluation Patient case reviewed with and plan approved by attending physician, Dr. Cline. Objective - Vital Signs/Intake and Output Vital Signs (last 24 hours): Temp Pulse Resp BP Pulse Ox 97.2 F L 93 H 19 103/68 98 10/03/18 18:00 10/03/18 18:00 10/03/18 18:00 10/03/18 18:00 10/02/18 21:00 Intake and Output: 10/04/18 10/04/18 06:59 18:59 Intake Total 60 Balance 60 - Medications Medications: Current Medications Albuterol/Ipratropium (Duoneb 3 Mg/0.5 Mg (3 Ml) Ud) 3 ml IH [id number] PRN PRN Reason: Shortness of Breath Last Admin: 10/03/18 08:16 Dose: 3 ml Alprazolam (Xanax) 0.25 mg PO TID PRN; Protocol PRN Reason: Anxiety Stop: 10/10/18 13:29 Last Admin: 10/03/18 21:42 Dose: 0.25 mg Aspirin (Ecotrin) 81 mg PO 0800 [facility] Last Admin: 10/04/18 08:20 Dose: 81 mg Atorvastatin Calcium (Lipitor) 80 mg PO HS [facility] Last Admin: 10/03/18 21:42 Dose: 80 mg Ferrous Sulfate (Feosol) 324 mg PO BID [facility] Last Admin: 10/03/18 17:24 Dose: 324 mg Furosemide (Lasix) 40 mg IVP DAILY [facility] Last Admin: 10/03/18 08:59 Dose: 40 mg Vancomycin HCl (Vancomycin 1gm) 1 gm in 250 mls @ 167 mls/hr IVPB DAILY [facility]; Protocol Last Admin: 10/03/18 09:01 Dose: 167 mls/hr Cefepime HCl (Maxipime 1gm) 1 gm in 100 mls @ 100 mls/hr IVPB Q24H [facility]; Protocol Last Admin: 10/03/18 09:01 Dose: 100 mls/hr Metoprolol Succinate (Toprol Xl) 50 mg PO BRK [facility] Last Admin: 10/03/18 09:10 Dose: Not Given Polyethylene Glycol (Miralax) 17 gm PO DAILY [facility] Last Admin: 10/03/18 09:00 Dose: 17 gm Spironolactone (Aldactone) 25 mg PO DAILY [facility] Last Admin: 10/03/18 10:00 Dose: Not Given Trazodone HCl (Desyrel) 25 mg PO HS PRN PRN Reason: Insomnia Warfarin Sodium (Coumadin) 2 mg PO 1800 [facility]; Protocol - Labs Labs: 10/04/18 06:15 10/04/18 06:15 PT 49.6 SECONDS (9.4-12.5) H 10/04/18 07:45 INR 4.39 H* 10/04/18 07:45 APTT 46.4 Seconds (26.9-38.3) H 10/02/18 17:15 <Jin Cline S - Last Filed: 10/04/18 13:14> Subjective - Subjective Subjective: Pt seen and examined by me. I have reviewed the note of the medical/surgery registered nurse and I agree with it. I have discussed the assessment and plan with the resident. I have reviewed the medications and the last labs. Objective - Vital Signs/Intake and Output Vital Signs (last 24 hours): Temp Pulse Resp BP Pulse Ox 97.2 F L 93 H 19 100/70 98 10/03/18 18:00 10/03/18 18:00 10/03/18 18:00 10/04/18 10:08 10/02/18 21:00 Intake and Output: 10/04/18 10/04/18 06:59 18:59 Intake Total 60 Balance 60 - Medications Medications: Current Medications Albuterol/Ipratropium (Duoneb 3 Mg/0.5 Mg (3 Ml) Ud) 3 ml IH [id number] PRN PRN Reason: Shortness of Breath Last Admin: 10/03/18 08:16 Dose: 3 ml Alprazolam (Xanax) 0.25 mg PO TID PRN; Protocol PRN Reason: Anxiety Stop: 10/10/18 13:29 Last Admin: 10/03/18 21:42 Dose: 0.25 mg Aspirin (Ecotrin) 81 mg PO 0800 [facility] Last Admin: 10/04/18 08:20 Dose: 81 mg Atorvastatin Calcium (Lipitor) 80 mg PO HS [facility] Last Admin: 10/03/18 21:42 Dose: 80 mg Ferrous Sulfate (Feosol) 324 mg PO BID [facility] Last Admin: 10/04/18 10:08 Dose: 324 mg Furosemide (Lasix) 40 mg IVP DAILY [facility] Last Admin: 10/04/18 10:08 Dose: 40 mg Vancomycin HCl (Vancomycin 1gm) 1 gm in 250 mls @ 167 mls/hr IVPB DAILY [facility]; Protocol Last Admin: 10/04/18 10:10 Dose: 167 mls/hr Cefepime HCl (Maxipime 1gm) 1 gm in 100 mls @ 100 mls/hr IVPB Q24H [facility]; Protocol Last Admin: 10/04/18 10:09 Dose: 100 mls/hr Metoprolol Succinate (Toprol Xl) 50 mg PO BRK [facility] Last Admin: 10/03/18 09:10 Dose: Not Given Polyethylene Glycol (Miralax) 17 gm PO DAILY [facility] Last Admin: 10/04/18 10:10 Dose: 17 gm Spironolactone (Aldactone) 25 mg PO DAILY [facility] Last Admin: 10/04/18 10:08 Dose: 25 mg Trazodone HCl (Desyrel) 25 mg PO HS PRN PRN Reason: Insomnia Warfarin Sodium (Coumadin) 2 mg PO 1800 [facility]; Protocol - Labs Labs: 10/04/18 06:15 10/04/18 06:15 PT 49.6 SECONDS (9.4-12.5) H 10/04/18 07:45 INR 4.39 H* 10/04/18 07:45 APTT 46.4 Seconds (26.9-38.3) H 10/02/18 17:15
[2018-10-04] MEDS: Cefepime 1gm in NS 100ml 1 GM/100 ML BAG IVPB SCH (10:09)
[2018-10-04] MEDS: POLYETHYLENE GLYCOL 3350 17 GM/Dose PACKET PO SCH (10:10)
[2018-10-04] MEDS: Vancomycin 1gm in NS 250ml 1 GM/250 ML BAG IVPB SCH (10:10)
--- NOTE | 2018-10-04 13:31 | CP.PCM.PCO ---
Physician Communication Note - Physician Communication Note Physician Communication Note: pt continues tx for pne, chf with cardio consult for beats of vt/arrhythmia
--- NOTE | 2018-10-04 16:30 | PN ---
DATE: 10/04/2018 SUBJECTIVE: The patient was seen and examined. I do agree with the note of the medical specialist who was involved in the plan of care. The patient was admitted to the hospital because of hospital-acquired pneumonia. The patient is currently on IV antibiotics. The patient is going to continue with the vancomycin and cefepime. She states that she is improving. She is on DuoNeb treatments. The patient has coronary artery disease. She has iron deficiency anemia. We will continue to monitor with CBCs. The patient is getting physical therapy and it was the plan that she go to subacute rehab. She has become deconditioned significantly ASSESSMENT AND PLAN: She is going to continue with the Lasix. She is on Aldactone. She has a hemoglobin of 10.9. Her sodium is stable at 131. Serum osmolality and urine osmolality has been ordered. The patient is on trazodone. She is going to continue with Coumadin. The patient's last INR is elevated at 4.3. The Coumadin has been on hold. Elevated INR is most likely from antibiotics. The patient is on a heart-healthy diet. She had a few runs of V-tach. I did speak with ____ regarding the case. No further intervention is planned. Jin Cline MD
--- NOTE | 2018-10-05 00:18 | PN ---
DATE: 10/04/2018 REQUESTING PHYSICIAN: Dr. Cline. REASON FOR CONSULTATION: Ventricular tachycardia. HISTORY: This is an 87-year-old woman, well known to me from her recent hospitalization with a history of coronary disease, status post coronary bypass operations in the past and multivessel PCI and aortic valve replacement as well as severe LV dysfunction and recent biventricular pacer implant, who was admitted with fatigue and difficulty walking. She is seen lying in bed on telemetry. She had a short run of nonsustained ventricular tachycardia. She denies any lightheadedness or syncope. PAST MEDICAL HISTORY: Known for the problems mentioned above. She underwent a recent atrial fibrillation ablation procedure at [facility]. At that time, a biventricular pacing system was placed. CURRENT MEDICATIONS: Include Aldactone 25 mg daily, warfarin, trazodone, DuoNeb inhaler, Ecotrin, ferrous sulfate, Lasix 40 mg daily, Lipitor 80 mg daily, Maxipime, Toprol-XL 50 mg daily, and IV vancomycin. ALLERGIES: SHE HAS HAD A REACTION TO SULFAS IN THE PAST. SHE ALSO REPORTEDLY HAS A CONTRAST ALLERGY. FAMILY HISTORY: She cannot recall. SOCIAL HISTORY: She does not smoke or drink. REVIEW OF SYSTEM: A 10-point review of systems is otherwise unremarkable. PHYSICAL EXAMINATION: GENERAL: She is a frail-appearing, very elderly woman. VITAL SIGNS: Her blood pressure is 110/74, pulse of 90 with ventricular pacing, respirations are 16. She is afebrile. HEENT: JVD is present. CHEST: Diminished breath sounds at the bases with bilateral scattered rhonchi. HEART: PMI displaced laterally, soft tones noted and systolic murmur at left sternal border. ABDOMEN: Soft, nontender, normoactive bowel sounds. EXTREMITIES: Both lower extremities are wrapped. Edema is present. PSYCHIATRIC: Normal mood and affect. NEUROLOGIC: Alert and oriented x3. No gross motor or sensory deficits notable. DIAGNOSTIC DATA: White count 7.5, hematocrit 10.9 and 36.5 with a platelet count of 193,000. INR is 4.39. Sodium is 131, potassium 4.7, BUN and creatinine 80 and 2.4. Bilirubin is 1.7. TSH 3.94. Electrocardiogram reveals ventricular paced rhythm. Chest x-ray reveals marked cardiomegaly with post sternotomy changes. Biventricular pacing system is present. Bibasilar atelectasis is noted. Pulmonary vascular congestion is present as well. IMPRESSION: 1. Nonsustained ventricular tachycardia, asymptomatic. 2. Buwgb-gx-pmawtsn congestive heart failure, systolic. 3. Coronary artery disease, status post prior bypass surgery, multivessel PCI. 4. History of aortic stenosis, status post aortic valve replacement. 5. Chronic renal insufficiency. 6. Rest of problems as noted. RECOMMENDATIONS: Conservative management of her nonsustained ventricular tachycardia is advised at this time. Maintenance of normal electrolyte balance is advised. IV Lasix will be administered. However, her renal function will need to be monitored carefully. Conservative comfort care is advised. Her overall prognosis remains poor. Thank you for this consultation. I will be happy to follow her through hospital course as needed. Yaw Joy MD
[2018-10-05 06:34] LABS: ALB/GLOB RATIO 0.8 (1.1-1.8); ALBUMIN 2.9 g/dL (3.0-4.8); CALCIUM 8.5 mg/dL (8.4-10.5)
[2018-10-05 06:56] LABS: BASO # 0.01 K/mm3 (0.0-2.0); BASO % 0.1 % (0.0-3.0); EOS # 0.1 (0.0-0.7); EOS % 0.9 % (1.5-5.0); HEMOGLOBIN 10.6 g/dL (12.0-16.0); LYMPH # 0.8 (1.2-3.4); LYMPH % 10.1 % (22.0-35.0); MEAN CELL VOLUME 78.8 fl (80.0-105.0); MEAN CORPUSCULAR HEMOGLOBIN 23.7 pg (25.0-35.0); MEAN PLATELET VOLUME 9.4 fl (7.0-11.0); MONO # 0.6 (0.1-0.6); MONO % 7.5 % (1.0-6.0); RBC 4.48 10^6/uL (3.5-6.1); RED CELL DISTRIBUTION WIDTH 27.8 % (11.5-14.5); WHITE BLOOD COUNT 7.7 10^3/uL (4.5-11.0)
[2018-10-05 07:06] LABS: PROTHROMBIN TIME 49.3 SECONDS (9.4-12.5)
[2018-10-05 07:07] LABS: INR 4.36
--- NOTE | 2018-10-05 08:48 | CP.PCM.PN ---
<Kishan Bennett - Last Filed: 10/05/18 11:32> Subjective - Date & Time of Evaluation Date of Evaluation: 10/05/18 Time of Evaluation: 08:00 - Subjective Subjective: Kishan Bennett- Internal Medicine Resident- Progress Note on Behalf of Dr. Cline Subjective: Patient seen and examined at bedside. No acute events overnight. Denies overnight chest pain and palpitations. States SOB has resolved at rest but admits to SOB with exertion. Further denies fever, chills, abdominal pain, nausea, vomiting, diarrhea, and urinary symptoms. 12 point ROS negative except as indicated in the HPI Physical Examination: - Constitutional Appears: Non-toxic, No Acute Distress - Head Exam Head Exam: ATRAUMATIC, NORMOCEPHALIC - Eye Exam Eye Exam: EOMI - ENT Exam ENT Exam: Mucous Membranes Moist - Neck Exam Neck exam: Positive for: Full Rom - Respiratory Exam Respiratory Exam: no rhonchi, no wheezing - Cardiovascular Exam Cardiovascular Exam: RRR, +S1, +S2, absent: Systolic Murmur - GI/Abdominal Exam GI & Abdominal Exam: Normal Bowel Sounds, Soft. absent: Distended, Firm, Guarding, Organomegaly, Rebound, Tenderness - Extremities Exam Extremities exam: legs wrapped bilaterally from toes to knees - Neurological Exam Neurological exam: Alert, Oriented x3 - Psychiatric Exam Psychiatric exam: Normal Affect, Normal Mood - Skin Skin Exam: Dry, Warm, old sternotomy scar intact Assessment and Plan: Hospital Acquired Pneumonia [place] Acute on Chronic Systolic Congestive Heart Failure Supra therapeutic INR- hold AC Atrial fibrillation on Coumadin- on hold due to elevated INR Nonsustained Ventricular Tachycardia Coronary artery disease Hyponatremia- improving Osteoarthritis Hypertension Iron deficiency anemia- hemoglobin stable 11.1 Left leg superficial tear of the skin Right leg deep tissue injury on posterior calf Allergies to Iodine and sulfa 10/02/2018 CXR: Interval development of airspace disease in the right lower lobe presumable pneumonia. Worsening pulmonary venous congestion and interval development of small effusions most compatible with mild congestive heart failure Asymmetric enlargement of the right hilum could be related to vascular engorgement however hilar mass cannot be excluded. Continue day 3 of vancomycin and cefepime for HCAP. Procalcitonin low. Continue with Duonebs prn for shortness of breath. Metoprolol resumed with holding parameters for treatment of atrial fibrillation. Continue to hold dose of warfarin due to elevated INR. Continue aspirin and lipitor for treatment of CAD. For treatment of chronic systolic congestive heart failure continue spironolactone and lasix 40mg IV daily. For treatment of htn cont home aldactone. For her anxiety continue with Xanax as needed. Continue to monitor sodium level via morning CMP. In regards to iron defiency anemia continue feosol and to monitor hemoglobin via CBC. Continue with heart healthy diet. Physical therapy recommends subacute rehab. Dispo- pending TCU evaluation Patient case reviewed with and plan approved by attending physician, Dr. Cline. Objective - Vital Signs/Intake and Output Vital Signs (last 24 hours): Temp Pulse Resp BP Pulse Ox 97.2 F L 93 H 20 105/67 98 10/05/18 06:00 10/05/18 06:00 10/05/18 06:00 10/05/18 06:00 10/05/18 06:00 Intake and Output: 10/05/18 10/05/18 06:59 18:59 Intake Total 990 Balance 990 - Medications Medications: Current Medications Albuterol/Ipratropium (Duoneb 3 Mg/0.5 Mg (3 Ml) Ud) 3 ml IH [id number] PRN PRN Reason: Shortness of Breath Last Admin: 10/03/18 08:16 Dose: 3 ml Alprazolam (Xanax) 0.25 mg PO TID PRN; Protocol PRN Reason: Anxiety Stop: 10/10/18 13:29 Last Admin: 10/04/18 21:00 Dose: 0.25 mg Aspirin (Ecotrin) 81 mg PO 0800 [facility] Last Admin: 10/05/18 08:19 Dose: 81 mg Atorvastatin Calcium (Lipitor) 80 mg PO HS [facility] Last Admin: 10/04/18 21:00 Dose: 80 mg Ferrous Sulfate (Feosol) 324 mg PO BID [facility] Last Admin: 10/04/18 17:40 Dose: 324 mg Furosemide (Lasix) 40 mg IVP DAILY [facility] Last Admin: 10/04/18 10:08 Dose: 40 mg Vancomycin HCl (Vancomycin 1gm) 1 gm in 250 mls @ 167 mls/hr IVPB DAILY [facility]; Protocol Last Admin: 10/04/18 10:10 Dose: 167 mls/hr Cefepime HCl (Maxipime 1gm) 1 gm in 100 mls @ 100 mls/hr IVPB Q24H [facility]; Protocol Last Admin: 10/04/18 10:09 Dose: 100 mls/hr Metoprolol Succinate (Toprol Xl) 50 mg PO BRK [facility] Last Admin: 10/03/18 09:10 Dose: Not Given Polyethylene Glycol (Miralax) 17 gm PO DAILY [facility] Last Admin: 10/04/18 10:10 Dose: 17 gm Spironolactone (Aldactone) 25 mg PO DAILY [facility] Last Admin: 10/04/18 10:08 Dose: 25 mg Trazodone HCl (Desyrel) 25 mg PO HS PRN PRN Reason: Insomnia Warfarin Sodium (Coumadin) 2 mg PO 1800 [facility]; Protocol - Labs Labs: 10/05/18 06:00 10/05/18 06:00 PT 49.3 SECONDS (9.4-12.5) H 10/05/18 06:00 INR 4.36 H* 10/05/18 06:00 APTT 46.4 Seconds (26.9-38.3) H 10/02/18 17:15 <Jin Cline S - Last Filed: 10/05/18 12:11> Subjective - Subjective Subjective: Pt seen and examined by me. I have reviewed the note of the medical affairs director and I agree with it. I have discussed the assessment and plan with the resident. I have reviewed the medications and the last labs. Objective - Vital Signs/Intake and Output Vital Signs (last 24 hours): Temp Pulse Resp BP Pulse Ox 97.2 F L 93 H 20 101/61 98 10/05/18 06:00 10/05/18 06:00 10/05/18 06:00 10/05/18 10:54 10/05/18 06:00 Intake and Output: 10/05/18 10/05/18 06:59 18:59 Intake Total 990 Balance 990 - Medications Medications: Current Medications Albuterol/Ipratropium (Duoneb 3 Mg/0.5 Mg (3 Ml) Ud) 3 ml IH [id number] PRN PRN Reason: Shortness of Breath Last Admin: 10/03/18 08:16 Dose: 3 ml Alprazolam (Xanax) 0.25 mg PO TID PRN; Protocol PRN Reason: Anxiety Stop: 10/10/18 13:29 Last Admin: 10/04/18 21:00 Dose: 0.25 mg Aspirin (Ecotrin) 81 mg PO 0800 [facility] Last Admin: 10/05/18 08:19 Dose: 81 mg Atorvastatin Calcium (Lipitor) 80 mg PO HS [facility] Last Admin: 10/04/18 21:00 Dose: 80 mg Ferrous Sulfate (Feosol) 324 mg PO BID [facility] Last Admin: 10/05/18 10:23 Dose: 324 mg Furosemide (Lasix) 40 mg IVP DAILY [facility] Last Admin: 10/05/18 10:54 Dose: 40 mg Vancomycin HCl (Vancomycin 1gm) 1 gm in 250 mls @ 167 mls/hr IVPB DAILY [facility]; Protocol Last Admin: 10/05/18 11:50 Dose: 167 mls/hr Cefepime HCl (Maxipime 1gm) 1 gm in 100 mls @ 100 mls/hr IVPB Q24H [facility]; Protocol Last Admin: 10/05/18 10:22 Dose: 100 mls/hr Metoprolol Succinate (Toprol Xl) 50 mg PO BRK [facility] Last Admin: 10/03/18 09:10 Dose: Not Given Polyethylene Glycol (Miralax) 17 gm PO DAILY [facility] Last Admin: 10/05/18 10:15 Dose: Not Given Spironolactone (Aldactone) 25 mg PO DAILY [facility] Last Admin: 10/05/18 10:23 Dose: 25 mg Trazodone HCl (Desyrel) 25 mg PO HS PRN PRN Reason: Insomnia Warfarin Sodium (Coumadin) 2 mg PO 1800 [facility]; Protocol - Labs Labs: 10/05/18 06:00 10/05/18 06:00 PT 49.3 SECONDS (9.4-12.5) H 10/05/18 06:00 INR 4.36 H* 10/05/18 06:00 APTT 46.4 Seconds (26.9-38.3) H 10/02/18 17:15
--- NOTE | 2018-10-05 09:37 | CP.PCM.PCO ---
Physician Communication Note - Physician Communication Note Physician Communication Note: pt with 6 beats nsvt, stat mg ordered. will follow
[2018-10-05] MEDS: POLYETHYLENE GLYCOL 3350 17 GM/Dose PACKET PO SCH (10:15)
[2018-10-05] MEDS: Cefepime 1gm in NS 100ml 1 GM/100 ML BAG IVPB SCH (10:22)
--- NOTE | 2018-10-05 11:22 | CP.PCM.CON ---
<JohnBlake - Last Filed: 10/05/18 11:14> History of Present Illness - History of Present Illness History of Present Illness: Podiatry consult note - Drs. Vivas/Monique 88F known to Drs. Vivas/Monique service with pmhx of coronary artery disease with CABG and stents, A. fib on Coumadin, hypertension, osteoarthritis, anxiety,atrial fibrillation seen and evaluated this AM with Dr. Vivas for b/l venous stasis ulcerations. Has legs wrapped from visit to wound care three days ago. States she is in no pain to her LEs but states she has some discomfort in her right leg. Denies n/v/f/c/sob today and has no other acute pedal complaints. PMHx: above PSHx: CABG 30 years ago, heart valve replacementlikely prosthetic (reported Pig valve), Pacemaker and ablation 1 week ago All: iodine and sulfa Past Patient History - Tetanus Immunizations Tetanus Immunization: Unknown - Past Social History Smoking Status: Never Smoked - CARDIAC Hx Cardiac Disorders: Yes (A fib, on coumadin, recent ablation with pacemaker insertion. CAD, CABG) Hx Hypertension: Yes - PULMONARY Hx Respiratory Disorders: No - NEUROLOGICAL Hx Neurological Disorder: No - HEENT Hx HEENT Problems: No - RENAL Hx Chronic Kidney Disease: No - ENDOCRINE/METABOLIC Hx Endocrine Disorders: No - HEMATOLOGICAL/ONCOLOGICAL Hx Blood Disorders: No - INTEGUMENTARY Hx Dermatological Problems: No - MUSCULOSKELETAL/RHEUMATOLOGICAL Hx Arthritis: Yes - GASTROINTESTINAL Hx Gastrointestinal Disorders: No - GENITOURINARY/GYNECOLOGICAL Hx Genitourinary Disorders: No - PSYCHIATRIC Hx Psychophysiologic Disorder: Yes Hx Depression: Yes Hx Substance Use: No - SURGICAL HISTORY Hx Coronary Stent: Yes Other/Comment: Pacemaker - ANESTHESIA Hx Anesthesia Reactions: No Hx Malignant Hyperthermia: No Meds Allergies/Adverse Reactions: Allergies Allergy/AdvReac Type Severity Reaction Status Date / Time iodine Allergy ANAPHYLAXIS Verified 09/19/18 17:40 Sulfa (Sulfonamide Allergy ANAPHYLAXIS Verified 09/19/18 17:40 Antibiotics) - Medications Medications: Current Medications Albuterol/Ipratropium (Duoneb 3 Mg/0.5 Mg (3 Ml) Ud) 3 ml IH [id number] PRN PRN Reason: Shortness of Breath Last Admin: 10/03/18 08:16 Dose: 3 ml Alprazolam (Xanax) 0.25 mg PO TID PRN; Protocol PRN Reason: Anxiety Stop: 10/10/18 13:29 Last Admin: 10/04/18 21:00 Dose: 0.25 mg Aspirin (Ecotrin) 81 mg PO 0800 [facility] Last Admin: 10/05/18 08:19 Dose: 81 mg Atorvastatin Calcium (Lipitor) 80 mg PO HS [facility] Last Admin: 10/04/18 21:00 Dose: 80 mg Ferrous Sulfate (Feosol) 324 mg PO BID [facility] Last Admin: 10/05/18 10:23 Dose: 324 mg Furosemide (Lasix) 40 mg IVP DAILY [facility] Last Admin: 10/05/18 10:54 Dose: 40 mg Vancomycin HCl (Vancomycin 1gm) 1 gm in 250 mls @ 167 mls/hr IVPB DAILY [facility]; Protocol Last Admin: 10/04/18 10:10 Dose: 167 mls/hr Cefepime HCl (Maxipime 1gm) 1 gm in 100 mls @ 100 mls/hr IVPB Q24H [facility]; Protocol Last Admin: 10/05/18 10:22 Dose: 100 mls/hr Metoprolol Succinate (Toprol Xl) 50 mg PO BRK [facility] Last Admin: 10/03/18 09:10 Dose: Not Given Polyethylene Glycol (Miralax) 17 gm PO DAILY [facility] Last Admin: 10/05/18 10:15 Dose: Not Given Spironolactone (Aldactone) 25 mg PO DAILY [facility] Last Admin: 10/05/18 10:23 Dose: 25 mg Trazodone HCl (Desyrel) 25 mg PO HS PRN PRN Reason: Insomnia Warfarin Sodium (Coumadin) 2 mg PO 1800 [facility]; Protocol Physical Exam - Constitutional Appears: Non-toxic - Head Exam Head Exam: ATRAUMATIC - Extremities Exam Additional comments: B/l LE exam VASC: DP and PT pulses palpable; cap refill <3 seconds to all digits; temp gradient warm to warm; mild edema noted b/l LE DERM: erythema to b/l LE present; superficial ulceration present on R 0.5cm x 0.4cm x 0.1cm - stable, minimal serous drainage, noninfected; L wound measure 1cm x 0.5cm x 0.1cm mixed fibrogranular base with minimal serous drainage, no depth, no malodor, noninfected ORTHO: mild pain on palpation to wounds and periwound skin, no other gross pathology noted NEURO: gross and protective sensation intact b/l - Neurological Exam Neurological exam: Alert, Oriented x3 - Psychiatric Exam Psychiatric exam: Normal Affect, Normal Mood Results - Vital Signs Recent Vital Signs: Last Vital Signs Temp 97.2 F L 10/05/18 06:00 Pulse 93 H 10/05/18 06:00 Resp 20 10/05/18 06:00 BP 101/61 10/05/18 10:54 Pulse Ox 98 10/05/18 06:00 - Labs Result Diagrams: 10/05/18 06:00 10/05/18 06:00 Labs: Laboratory Results - last 24 hr 10/05/18 10/05/18 10/05/18 06:00 06:00 06:00 WBC 7.7 RBC 4.48 Hgb 10.6 L Hct 35.3 L MCV 78.8 L MCH 23.7 L MCHC 30.0 L RDW 27.8 H Plt Count 178 MPV 9.4 Neut % (Auto) 81.4 H Lymph % (Auto) 10.1 L [place] % (Auto) 7.5 H Eos % (Auto) 0.9 L Baso % (Auto) 0.1 Lymph # (Auto) 0.8 L [place] # (Auto) 0.6 Eos # (Auto) 0.1 Baso # (Auto) 0.01 Absolute Neuts (auto) 6.27 PT 49.3 H INR 4.36 H* Sodium 131 L Potassium 4.4 Chloride 91 L Carbon Dioxide 27 Anion Gap 17 BUN 85 H Creatinine 2.2 H Est GFR ( Amer) 26 Est GFR (Non-Af Amer) 21 Random Glucose 92 Calcium 8.5 Magnesium Total Bilirubin 1.6 H AST 65 H ALT 54 Alkaline Phosphatase 143 H NT-Pro-B Natriuret Pep Total Protein 6.4 Albumin 2.9 L Globulin 3.5 Albumin/Globulin Ratio 0.8 L 10/05/18 10/05/18 06:00 09:36 WBC RBC Hgb Hct MCV MCH MCHC RDW Plt Count MPV Neut % (Auto) Lymph % (Auto) [place] % (Auto) Eos % (Auto) Baso % (Auto) Lymph # (Auto) [place] # (Auto) Eos # (Auto) Baso # (Auto) Absolute Neuts (auto) PT INR Sodium Potassium Chloride Carbon Dioxide Anion Gap BUN Creatinine Est GFR ( Amer) Est GFR (Non-Af Amer) Random Glucose Calcium Magnesium 2.5 H Total Bilirubin AST ALT Alkaline Phosphatase NT-Pro-B Natriuret Pep 43093 H Total Protein Albumin Globulin Albumin/Globulin Ratio Assessment & Plan - Assessment and Plan (Free Text) Assessment: 88F with chronic venous stasis ulcerations b/l - noninfected, stable Plan: Patient seen and evaluated with Dr. Vivas VSS, absent leukocytosis Dressings taken down, cleansed with sterile saline, and dressed with maxorb, dry sterile dressing, and JAYLAN QOD dressing change No podiatric surgical intervention LE stable from podiatry standpoint, noninfected Will continue to follow Thank you for the consult - Date & Time Date: 10/05/18 Time: 11:25 <Gui Vivas - Last Filed: 10/05/18 19:05> Meds - Medications Medications: Current Medications Albuterol/Ipratropium (Duoneb 3 Mg/0.5 Mg (3 Ml) Ud) 3 ml IH [id number] PRN PRN Reason: Shortness of Breath Last Admin: 10/03/18 08:16 Dose: 3 ml Alprazolam (Xanax) 0.25 mg PO TID PRN; Protocol PRN Reason: Anxiety Stop: 10/10/18 13:29 Last Admin: 10/04/18 21:00 Dose: 0.25 mg Aspirin (Ecotrin) 81 mg PO 0800 [facility] Last Admin: 10/05/18 08:19 Dose: 81 mg Atorvastatin Calcium (Lipitor) 80 mg PO HS [facility] Last Admin: 10/04/18 21:00 Dose: 80 mg Ferrous Sulfate (Feosol) 324 mg PO BID [facility] Last Admin: 10/05/18 18:08 Dose: 324 mg Furosemide (Lasix) 40 mg IVP DAILY [facility] Last Admin: 10/05/18 10:54 Dose: 40 mg Vancomycin HCl (Vancomycin 1gm) 1 gm in 250 mls @ 167 mls/hr IVPB DAILY [facility]; Protocol Last Admin: 10/05/18 11:50 Dose: 167 mls/hr Cefepime HCl (Maxipime 1gm) 1 gm in 100 mls @ 100 mls/hr IVPB Q24H [facility]; Protocol Last Admin: 10/05/18 10:22 Dose: 100 mls/hr Metoprolol Succinate (Toprol Xl) 50 mg PO BRK [facility] Last Admin: 10/03/18 09:10 Dose: Not Given Nystatin (Mycostatin Cream) 0 ea TOP BID [facility] Polyethylene Glycol (Miralax) 17 gm PO DAILY [facility] Last Admin: 10/05/18 10:15 Dose: Not Given Spironolactone (Aldactone) 25 mg PO DAILY [facility] Last Admin: 10/05/18 10:23 Dose: 25 mg Trazodone HCl (Desyrel) 25 mg PO HS PRN PRN Reason: Insomnia Warfarin Sodium (Coumadin) 2 mg PO 1800 [facility]; Protocol Results - Vital Signs Recent Vital Signs: Last Vital Signs Temp 97.2 F L 10/05/18 17:27 Pulse 95 H 10/05/18 18:44 Resp 18 10/05/18 17:27 BP 115/76 10/05/18 17:27 Pulse Ox 98 10/05/18 06:00 - Labs Result Diagrams: 10/05/18 06:00 10/05/18 06:00 Labs: Laboratory Results - last 24 hr 10/05/18 10/05/18 10/05/18 06:00 06:00 06:00 WBC 7.7 RBC 4.48 Hgb 10.6 L Hct 35.3 L MCV 78.8 L MCH 23.7 L MCHC 30.0 L RDW 27.8 H Plt Count 178 MPV 9.4 Neut % (Auto) 81.4 H Lymph % (Auto) 10.1 L [place] % (Auto) 7.5 H Eos % (Auto) 0.9 L Baso % (Auto) 0.1 Lymph # (Auto) 0.8 L [place] # (Auto) 0.6 Eos # (Auto) 0.1 Baso # (Auto) 0.01 Absolute Neuts (auto) 6.27 PT 49.3 H INR 4.36 H* Sodium 131 L Potassium 4.4 Chloride 91 L Carbon Dioxide 27 Anion Gap 17 BUN 85 H Creatinine 2.2 H Est GFR ( Amer) 26 Est GFR (Non-Af Amer) 21 Random Glucose 92 Calcium 8.5 Magnesium Total Bilirubin 1.6 H AST 65 H ALT 54 Alkaline Phosphatase 143 H NT-Pro-B Natriuret Pep Total Protein 6.4 Albumin 2.9 L Globulin 3.5 Albumin/Globulin Ratio 0.8 L 10/05/18 10/05/18 06:00 09:36 WBC RBC Hgb Hct MCV MCH MCHC RDW Plt Count MPV Neut % (Auto) Lymph % (Auto) [place] % (Auto) Eos % (Auto) Baso % (Auto) Lymph # (Auto) [place] # (Auto) Eos # (Auto) Baso # (Auto) Absolute Neuts (auto) PT INR Sodium Potassium Chloride Carbon Dioxide Anion Gap BUN Creatinine Est GFR ( Amer) Est GFR (Non-Af Amer) Random Glucose Calcium Magnesium 2.5 H Total Bilirubin AST ALT Alkaline Phosphatase NT-Pro-B Natriuret Pep 30567 H Total Protein Albumin Globulin Albumin/Globulin Ratio Attending/Attestation - Attestation I have personally seen and examined this patient.: Yes I have fully participated in the care of the patient.: Yes I have reviewed all pertinent clinical information: Yes
[2018-10-05] MEDS: Vancomycin 1gm in NS 250ml 1 GM/250 ML BAG IVPB SCH (11:50)
--- NOTE | 2018-10-05 11:53 | PN ---
DATE: 10/05/2018 SUBJECTIVE: The patient is seen lying in bed on telemetry. She is comfortable at rest. CURRENT MEDICATIONS: Include Aldactone 25 mg daily, Coumadin, trazodone, DuoNeb inhaler, Ecotrin, Lasix 40 mg IV daily, Lipitor 80 mg daily, Maxipime, Toprol XL 50 mg daily and vancomycin IV. OBJECTIVE: GENERAL: She is a very elderly woman who appears comfortable at rest. VITAL SIGNS: Blood pressure is 106/67 with pulse of 90 with ventricular pacing, respirations are 16. She is afebrile. HEENT: No JVD. CHEST: Diminished breath sounds at bases with bilateral scattered rhonchi. HEART: PMI displaced laterally with systolic murmur at the left sternal border. Heart tones are soft. ABDOMEN: Soft, nontender with normoactive bowel sounds. EXTREMITIES: Both lower extremities are wrapped. DIAGNOSTIC DATA: Sodium is 131, potassium 4.4, BUN and creatinine 85 and 2.2. White count 7.7, hemoglobin and hematocrit 10.6 and 35.3 with platelet count 178,000. INR is 4.36. ASSESSMENT: 1. Recent nonsustained ventricular tachycardia with no evidence of recurrence asymptomatic. 2. [id number] congestive heart failure, systolic. 3. Coronary artery disease status post prior bypass surgery and multivessel percutaneous coronary intervention. 4. Status post aortic valve replacement for aortic stenosis. 5. Chronic renal insufficiency. 6. Rest of problems as noted. RECOMMENDATIONS: Continued conservative management is advised. IV Lasix will be continued for now. However, her renal function will need to be monitored carefully. Sodium and fluid restriction were advised. Her overall prognosis remains limited and poor. I will be happy to follow along as needed. Yaw Joy MD
--- NOTE | 2018-10-05 14:22 | PN ---
DATE: 10/05/2018 SUBJECTIVE: The patient was seen and examined. I do agree with the note of the medical coordinator pesticide use. I was involved in the plan of care. The patient admitted because of a hospital-acquired pneumonia. She is receiving IV antibiotics. She is having improvement of her symptoms. Her medications were reviewed. The patient has an elevated INR, most likely from the antibiotics. The patient has history of coronary artery disease. She has hemoglobin has been stable. She is going to be seen by podiatry. She is waiting to go to subacute rehab. I did inform Dr. Avila who is the patient's primary doctor. She needs days of antibiotics. She is on day #3. She is going to continue with her Aldactone for her CHF that is chronic. At this point she had anxiety and is on Xanax. She is on her trazodone, this will be continued. I will place her on nystatin because of a rash in her groin area. Jin Cline MD
[2018-10-05] MEDS ORDERED: Nystatin 100,000 Units/gm Cream(15 gm) TOP SCH (18:00)
[2018-10-05 23:33] VITALS: RESP 20
[2018-10-06 05:48] VITALS: TEMP 97.3; O2SAT 99
[2018-10-06 07:36] LABS: BASO # 0.01 K/mm3 (0.0-2.0); BASO % 0.1 % (0.0-3.0); EOS # 0.1 (0.0-0.7); EOS % 1.3 % (1.5-5.0); HEMOGLOBIN 11.2 g/dL (12.0-16.0); LYMPH # 0.9 (1.2-3.4); LYMPH % 11.8 % (22.0-35.0); MEAN CELL VOLUME 82.2 fl (80.0-105.0); MEAN CORPUSCULAR HGB CONC 29.2 g/dl (31.0-37.0); MEAN PLATELET VOLUME 9.1 fl (7.0-11.0); MONO # 0.6 (0.1-0.6); MONO % 7.3 % (1.0-6.0); RBC 4.67 10^6/uL (3.5-6.1); RED CELL DISTRIBUTION WIDTH 28.2 % (11.5-14.5); WHITE BLOOD COUNT 7.8 10^3/uL (4.5-11.0)
[2018-10-06 07:56] LABS: ALB/GLOB RATIO 0.8 (1.1-1.8); ALBUMIN 2.9 g/dL (3.0-4.8); CALCIUM 8.6 mg/dL (8.4-10.5)
[2018-10-06] MEDS: Metoprolol Succinate 50 mg XL Tab PO SCH (09:17)
[2018-10-06] MEDS: Cefepime 1gm in NS 100ml 1 GM/100 ML BAG IVPB SCH (09:17)
[2018-10-06] MEDS: POLYETHYLENE GLYCOL 3350 17 GM/Dose PACKET PO SCH (09:17)
[2018-10-06 09:19] VITALS: BP 114/68
--- NOTE | 2018-10-06 09:30 | PN ---
DATE: 10/06/2018 SUBJECTIVE: The patient was seen lying in bed, on telemetry. She is comfortable at rest. She remains weak. Her medications include spironolactone 25 mg daily, Coumadin, which is on hold, trazodone, albuterol inhaler, Ecotrin, ferrous sulfate, Lasix 40 mg daily, Lipitor, Maxipime, Toprol XL 50 mg daily, and IV vancomycin. OBJECTIVE: GENERAL: She is a very elderly woman who is comfortable at rest. VITAL SIGNS: Her blood pressure is 110/72 with pulse of 90 and sinus, respirations are 14. She is afebrile. HEENT: No JVD. CHEST: Bilateral scattered rhonchi. HEART: PMI displaced laterally with systolic murmur at the left sternal border. ABDOMEN: [place] bowel sounds are heard. Soft, nontender, normoactive bowel sounds. EXTREMITIES: Both lower extremities are wrapped. DIAGNOSTIC DATA: Morning blood work is pending. IMPRESSION: 1. Recent short runs of nonsustained ventricular tachycardia, stable at present. 2. [id number] congestive heart failure, predominantly systolic. 3. Coronary artery disease status post prior bypass surgery and multivessel percutaneous coronary intervention. 4. Status post aortic valve replacement for aortic stenosis. 5. History of atrial fibrillation ablation and biventricular pacing system implant. 6. Chronic renal insufficiency. 7. Rest of problems as noted. RECOMMENDATIONS: Current management, we will continue for now. I spoke with her niece, we phoned last evening to discuss her condition. From a cardiac standpoint, she is stable for transfer to a subacute facility whenever medically able. Her overall prognosis remains limited. Continued sodium and fluid restriction is advised. I will follow along as needed. Yaw Joy MD
[2018-10-06] MEDS: Vancomycin 1gm in NS 250ml 1 GM/250 ML BAG IVPB SCH (11:16)
--- NOTE | 2018-10-06 13:24 | PN ---
DATE: 10/06/2018 SUBJECTIVE: An 87-year-old female seen at bedside for continued evaluation and management of bilateral venous stasis ulcerations. The patient was seen at home by myself every 2 weeks and is being followed by visiting nurses three times a week for dressing changes on her bilateral venous stasis ulcerations. The patient is set for discharge today at [facility]. The patient's laboratory findings show a white count of 7.8, hemoglobin of 11.2, hematocrit of 38.4, platelet count of 173. Vital signs revealed temperature of 97.3, pulse rate of 95, blood pressure 114/68, respiratory rate of 20. Microbiology reports reveal no bacterial growth. OBJECTIVE: Weakly palpable pedal pulses noted bilaterally as well as weakly palpable popliteal pulses noted bilaterally; +2 nonpitting lower extremity edema noted bilaterally. Lower extremity skin presents extremely thin, fragile and discolored bilaterally. There are noted to be numerous superficial venous stasis ulcerations on both lower extremities that range in size from 0.5 x 0.4 x 0.1 to 1 cm x 0.8 cm x 0.1 cm. All of the ulcerations are primarily granular with minimal fibrotic tissue present. There is noted to be moderate serous drainage. There is no purulence. No underlying abscess formations noted. None of the wounds probe to tendon or bone. There is no malodor. There are no signs of acute bacterial infection. No signs of cellulitic activity. ASSESSMENT: An 87-year-old female with chronic venous stasis ulcerations bilaterally which are now stable and slowly resolving. PLAN: The patient was seen and evaluated. The wounds were cleansed with normal sterile saline and application of calcium alginate with silver and a light compressive dressing was applied to both lower legs. The patient will be discharged to [facility], at which time wound care orders include cleansing both legs with normal sterile saline, applying calcium alginate with silver to open wounds and applying a two-layer compressive dressing every 3 days. The patient was told to call the office and schedule a home visit when she arrives home. Gui Vivas DPM
[2018-10-06 16:22] VITALS: PULSE 94
--- NOTE | 2018-10-06 16:25 | DS ---
HISTORY OF PRESENT ILLNESS: The patient is an 88-year-old female who had come to the hospital, was found to have hospital-acquired pneumonia. The patient that was treated with IV antibiotics and seen by Infectious Disease, she has improvement of her symptoms. She has finished day #4 out of 4 for antibiotics. She is going to [facility] for rehab. The patient had hyponatremia and it is controlled. She had acute kidney injury that has improved. Her creatinine is 1.9. PHYSICAL EXAMINATION VITAL SIGNS: Temperature is 97.3, pulse of 94, blood pressure 108/73, respirations 20 and O2 saturation 99%. GENERAL: The patient is lying in bed, flat, comfortable. HEENT: No oral lesion. Anicteric sclerae. Moist mucosa. NECK: No JVD, adenopathy, or thyromegaly. CARDIOVASCULAR: S1 and S2, regular. No murmurs, rubs, or gallops. LUNGS: Clear to auscultation bilaterally. No wheeze, rales, or rhonchi. ABDOMEN: Bowel sounds are positive, soft, nontender and nondistended. EXTREMITIES: No cyanosis, clubbing or edema. ASSESSMENT AND PLAN: 1. Hospital-acquired pneumonia, improved. 2. Acute kidney injury, improved. 3. Acute on chronic congestive heart failure secondary to systolic dysfunction, improving. 4. Atrial fibrillation on Coumadin. 5. Coronary artery disease. 6. Hyponatremia. 7. Osteoarthritis. 8. Hypertension. 9. Iron deficiency anemia. PLAN: The patient is currently on trazodone, this will be continued. The patient's INR remains elevated. Her Coumadin has been placed on hold this is most likely due to the antibiotics that she is on. The patient is on vancomycin for antibiotics. She is receiving nystatin cream for rash. She is on Lipitor for dyslipidemia. She is on Lasix. I will change the Lasix to p.o. She is going to be on aspirin daily. She is going to be discharged to subacute rehab today. CONDITION: Stable. ACTIVITIES: Increase as tolerated. Followup with Dr. Brandon in 1-2 weeks after discharge. Jin Cline MD [facility] # [id number]
== END 2018-10-06 16:21 | DRG 291 ==
LOC: ED 14:46 → ERH 19:08 → 2RNO 20:53
PROVIDERS: ADMIT Internal Medicine Nephrology; ATTEND Internal Medicine Nephrology
DX: I13.0 Hypertensive heart and chronic kidney disease with heart failure and stage 1 through stage 4 chronic kidney disease, or unspecified chronic kidney disease (principal); J18.9 Pneumonia, unspecified organism; I50.23 Acute on chronic systolic (congestive) heart failure; E87.1 Hypo-osmolality and hyponatremia; N17.9 Acute kidney failure, unspecified; I47.2 Ventricular tachycardia; L97.929 Non-pressure chronic ulcer of unspecified part of left lower leg with unspecified severity; L97.919 Non-pressure chronic ulcer of unspecified part of right lower leg with unspecified severity; M19.90 Unspecified osteoarthritis, unspecified site; I48.91 Unspecified atrial fibrillation; Z79.01 Long term (current) use of anticoagulants; I25.10 Atherosclerotic heart disease of native coronary artery without angina pectoris; Z95.1 Presence of aortocoronary bypass graft; Z95.5 Presence of coronary angioplasty implant and graft; F41.9 Anxiety disorder, unspecified; Y95 Nosocomial condition; D50.9 Iron deficiency anemia, unspecified; R79.1 Abnormal coagulation profile; Z95.0 Presence of cardiac pacemaker; Z95.2 Presence of prosthetic heart valve; I35.0 Nonrheumatic aortic (valve) stenosis; I83.009 Varicose veins of unspecified lower extremity with ulcer of unspecified site; N18.9 Chronic kidney disease, unspecified; Z79.899 Other long term (current) drug therapy; Z91.041 Radiographic dye allergy status; E78.5 Hyperlipidemia, unspecified; Z88.2 Allergy status to sulfonamides; Z87.892 Personal history of anaphylaxis